=== PATIENT | female | born 1940 | race Caucasian/White ===

== ENCOUNTER → 2018-11-17 | Outpatient (CLI) | payer MEDICARE ==
--- NOTE | 2018-11-17 13:10 | Diagnostic Imaging Report ---
PROCEDURE: CT chest, abdomen, and pelvis without contrast. TECHNIQUE: Multiple contiguous axial images were obtained through the chest, abdomen, and pelvis without the use of intravenous contrast. Auto Exposure Controls were utilized during the CT exam to meet ALARA standards for radiation dose reduction. INDICATION: Breast carcinoma, followup. Patient does complain of back pain. COMPARISON: No prior studies are available for comparison. FINDINGS: CT chest: There is a large solid-appearing mass in the left breast measuring 4.2 cm in diameter. A lymph node in the left axilla measures 1.3 x 0.8 cm. The right axilla is unremarkable. No definite intramammary lymphadenopathy is seen. There are small lymph nodes in the mediastinum. Mediastinal and hilar evaluation is limited without intravenous contrast. There are coronary arterial calcifications present. There is no pericardial or pleural fluid detected. Moderate-sized hiatal hernia is noted. Biapical pleural-parenchymal scarring is seen. A band of linear density in the left upper lobe is noted which shows some mild nodularity peripherally. There is also a calcified granuloma in the left upper lobe. There is a small nodule in the posterolateral left lower lobe measuring 6 mm. There appears to be some patchy sclerosis involving T7, T8, and T9 vertebral bodies, suspicious for metastatic disease. IMPRESSION: 1. Large left breast mass. 2. Linear parenchymal density with some mild nodularity in the left upper lobe, indeterminate. There is a noncalcified nodule in the posterolateral left lower lobe. Metastatic lesion cannot be entirely excluded. There are also some patchy areas of sclerosis in the thoracic spine, suspicious for osseous metastatic disease. 3. Large hiatal hernia. CT abdomen and pelvis: No discrete liver mass is identified. The gallbladder is unremarkable. The pancreas and spleen are unremarkable. The right and left adrenal glands are unremarkable without evidence of a discrete mass. No renal calculi or hydronephrosis is seen. Aorta is calcified but nonaneurysmal. No central retroperitoneal or mesenteric lymphadenopathy is seen. Small and large bowel loops are normal in caliber. There is no ascites. The bladder and uterus appear unremarkable. No definite pelvic lymphadenopathy is seen. Evaluation of the bony structures demonstrates some healing fractures of the right inferior and superior pubic rami. There is a small amount of callus formation present but the fracture lines remain clearly visible. Markedly heterogeneous patchy sclerosis involving bilateral superior and inferior rami are noted. This is also seen involving the femoral heads bilaterally as well as the iliac bones and sacrum. There are heterogeneous mixed lytic and sclerotic changes of the lumbar spine as well. Features are suggestive of osseous metastatic disease. IMPRESSION: 1. Findings suggestive of osseous metastatic disease. There are healing fractures of the right superior and inferior pubic rami. No abdominal or pelvic lymphadenopathy or other regions of metastatic disease are identified. Dictated by: Dictated on workstation # [id number]
--- NOTE | 2018-11-17 17:57 | Diagnostic Imaging Report ---
INDICATION: Breast mass and back pain. TECHNIQUE: Patient was administered 25.1 mCi technetium 99m MDP intravenously and whole-body imaging was performed after 3 hour delay. COMPARISON: No prior bone scans are available for comparison. FINDINGS: There is uptake of activity by the axial and appendicular skeleton. There is uptake by the kidneys with excretion into the urinary bladder. There are numerous abnormal foci of tracer accumulation present. Abnormal uptake in the calvarium is seen. There is uptake involving numerous bilateral ribs as well as throughout the thoracic and lumbar spine. There is uptake within the bony pelvis and sacrum as well as bilateral femora. There also appears to be uptake in the humeri bilaterally. Findings are suggestive of widespread osseous metastatic disease. IMPRESSION: Findings consistent with diffuse osseous metastatic disease. Dictated by: Dictated on workstation # [id number]
--- NOTE | 2018-11-17 19:39 | Diagnostic Imaging Report ---
INDICATION: Left breast lump. No prior studies are available for comparison. 2-D and 3-D bilateral diagnostic mammography was performed with Computer-Aided Detection (CAD) system. FINDINGS: Scattered fibronodular densities are identified bilaterally. There is a large lobulated mass in the upper and slightly inner left breast measuring approximately 4 cm x 5 cm. This is concerning for neoplasm. No other masses are seen. No microcalcifications are identified. Right breast is unremarkable. IMPRESSION: Large lobulated left breast mass concerning for malignancy. Further evaluation with ultrasound is recommended and will be performed today. ACR BI-RADS Category 0: Incomplete. (Needs additional imaging evaluation). Result letter will be mailed to the patient. Note: At least 10% of breast cancer is not imaged by mammography. Dictated by: Dictated on workstation # [id number]
--- NOTE | 2018-11-17 19:47 | Diagnostic Imaging Report ---
INDICATION: Left breast mass. Correlation is made with diagnostic mammogram earlier the same day. FINDINGS: Sonographic interrogation of the mass in the upper and slightly inner left breast was performed. There is a large, ill-defined hypoechoic solid mass at the 10 o'clock location measuring 3.3 x 3.5 x 4.5 cm. This demonstrates internal vascularity. This corresponds to the mass noted mammographically. The left axilla was also evaluated and contains prominent lymph node measuring 2.5 x 1.3 cm. Second fatty lymph node is seen measuring 2.5 x 1.5 cm. IMPRESSION: Large solid mass at the 10 o'clock location of the left breast corresponding to the mammographic abnormality. Features are concerning for breast neoplasm. Tissue sampling is recommended. ACR BI-RADS Category 4: Suspicious abnormality. Dictated by: Dictated on workstation # [id number]
== END ==
LOC: CARD 11:57
PROVIDERS: ATTEND Internal Medicine Hematology & Oncology
DX: N63.22 Unspecified lump in the left breast, upper inner quadrant (principal); R91.8 Other nonspecific abnormal finding of lung field; K44.9 Diaphragmatic hernia without obstruction or gangrene
CPT/HCPCS: 71250; 74176; 76642; 77066; 78306

== ENCOUNTER → 2018-11-30 | Outpatient (CLI) | payer MEDICARE ==
[~2018-11-30] MED LIST: LIDOCAINE 1% INJ 20 ML 20 ML VIAL INJ ONE; LIDOCAINE 1% INJ 20 ML 20 ML VIAL ONE
--- NOTE | 2018-11-30 20:23 | Diagnostic Imaging Report ---
INDICATION: Postbiopsy clip placement. EXAMINATION: Two views of left breast were obtained. FINDINGS: A surgical clip is seen within the large mass in the upper medial left breast. IMPRESSION: Satisfactory clip placement, as described. Dictated by: Dictated on workstation # [id number]
--- NOTE | 2018-11-30 20:25 | Diagnostic Imaging Report ---
INDICATION: Breast mass. TECHNIQUE AND FINDINGS: After explaining the risks, benefits, and alternatives of the procedure to the patient written consent was obtained. A preliminary ultrasound was obtained for localization purposes. Patient's left breast was then prepped and draped utilizing maximal sterile barrier technique. Local anesthesia was obtained with 2% lidocaine. An 18-gauge Temno needle was advanced into the lesion under ultrasound guidance. 4 core biopsy specimens were obtained. The needle was removed. A surgical clip was then placed within the mass. Adequate hemostasis was obtained. Patient tolerated the procedure well and left the department in stable condition. IMPRESSION: Successful ultrasound-guided biopsy of left breast mass as described. Dictated by: Dictated on workstation # [id number]
== END ==
LOC: RAD 09:04
PROVIDERS: ATTEND Internal Medicine Hematology & Oncology
DX: N63.20 Unspecified lump in the left breast, unspecified quadrant (principal)
CPT/HCPCS: 19083

== ENCOUNTER 2019-01-09 18:26 | Observation (INO) | payer MEDICARE ==
[~2019-01-09] VITALS: Ht 165.1 cm; Wt 61.8 kg
[2019-01-09] MEDS ORDERED: LACTATED RINGERS 1,000 ML IV ONE (18:55)
[2019-01-09] MEDS ORDERED: ONDANSETRON 4 MG/2 ML (SDV) Z0FRAN IVP ONE (19:00)
[2019-01-09 19:01] LABS: BASOPHILS % (AUTO) 0 % (0-10); EOSINOPHILS % (AUTO) 0 % (0-10); HEMATOCRIT 36 % (35-52); HEMOGLOBIN 12.1 G/DL (11.5-16.0); LYMPHOCYTES # (AUTO) 0.2 X 10^3 (1.0-4.0); LYMPHOCYTES % (AUTO) 6 % (12-44); MEAN CORPUSCULAR HEMOGLOBIN 29 PG (25-34); MEAN CORPUSCULAR HGB CONC 34 G/DL (32-36); MEAN CORPUSCULAR VOLUME 85 FL (80-99); MEAN PLATELET VOLUME 10.4 FL (7.4-10.4); MONOCYTES # (AUTO) 0.1 X 10^3 (0.0-1.0); MONOCYTES % (AUTO) 4 % (0-12); NEUTROPHILS # (AUTO) 2.3 X 10^3 (1.8-7.8); NEUTROPHILS % (AUTO) 90 % (42-75); PLATELET COUNT 206 10^3/uL (130-400); RED CELL DISTRIBUTION WIDTH 15.7 % (10.0-14.5); WHITE BLOOD COUNT 2.6 10^3/uL (4.3-11.0)
[2019-01-09 19:13] LABS: PROTHROMBIN TIME PATIENT 13.6 SEC (12.2-14.7)
[2019-01-09 19:22] LABS: ALBUMIN 3.9 GM/DL (3.2-4.5); BILIRUBIN,TOTAL 0.4 MG/DL (0.1-1.0); CALCIUM 10.1 MG/DL (8.5-10.1); CREATININE SERUM 1.04 MG/DL (0.60-1.30); MAGNESIUM 2.3 MG/DL (1.8-2.4); TOTAL PROTEIN 7.5 GM/DL (6.4-8.2)
--- NOTE | 2019-01-09 19:22 | ED Abdominal Pain ---
General Chief Complaint: Abdominal/GI Problems Stated Complaint: NAUSEA/ABD PAIN Nursing Triage Note: PATIENT WITH BREAST CANCER HERE FOR CONCERNS ABOUT CONSTIPATION. SHE REPORTS THAT SHE TAKES OXYCODONE SEVERAL TIMES A DAY AND USUALLY IS ABLE TO MAINTAIN ADEQUATE STOOLS WITH STOOL SOFTENERS AND MIRALAX. HOWEVER, SHE HAS NOT HAD A BM SINCE TUESDAY AND REPORTS LOW ABDOMINAL PAIN ANDNAUSEA. Sepsis Screen: No Definite Risk Source of Information: Patient, Family (SON) History of Present Illness Date Seen by Provider: January 09, 2019 Time Seen by Provider: 18:50 Initial Comments PT ARRIVES VIA POV FROM HOME, WITH FAMILY C/O "SEVERE CONSTIPATION" C/O GENERALIZED ABDOMINAL PAIN, AND NO BM SINCE TUESDAY--BM WAS A FEW HARD SAMANTHA RATES PAIN 7-03/31 C/O NAUSEA AND VOMITED UP WATER X 1 THIS AM, HAD SMALL AMOUNT OF CRANBERRY JUICE AND 2 BITES OF TOAST EARLY THIS AM, AND KEPT THOSE DOWN, THEN LATER VOMITED UP THE WATER. 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 LAST DOSE WAS AT 1700 TODAY HAS HAD ISSUES WITH CONSTIPATION SINCE STARTING ON THE ABOVE MEDICATIONS, BUT HAS HAD GOOD RESULTS WITH MIRALAX, OTC STOOL SOFTENER AND OCCASIONAL EX-LAX, BUT IS NOT HELPING FOR THE LAST 4 DAYS. PT HAS NEVER HAD ANY MEDICAL PROBLEMS OR ANY SURGERIES PRIOR TO THE ABOVE ( HAD BREAST BIOPSY ONLY ) HAS NEVER BEEN IN HOSPITAL BEFORE PCP: DR BEATTY ONCOLOGIST: DR PICKETT Allergies and Home Medications Allergies Coded Allergies: No Known Drug Allergies (Unverified , 11/30/18) Patient Home Medication List Home Medication List Reviewed: Yes Review of Systems Review of Systems Constitutional: no symptoms reported; No chills, No diaphoresis, No fever EENTM: No Symptoms Reported Respiratory: No Symptoms Reported; Denies Cough, Denies Shortness of Air Cardiovascular: No Symptoms Reported; Denies Chest Pain, Denies Edema, Denies Lightheadedness Gastrointestinal: See HPI, Abdominal Pain, Constipated, Nausea, Poor Appetite, Poor Fluid Intake, Vomiting Genitourinary: No Symptoms Reported Musculoskeletal: see HPI, back pain Skin: no symptoms reported Psychiatric/Neurological: No Symptoms Reported Endocrine: No Symptoms Reported Hematologic/Lymphatic: No Symptoms Reported Past Bawzaht-Yobvas-Dizpvx Hx Patient Social History Alcohol Use: Denies Use Recreational Drug Use: No Smoking Status: Never a Smoker 2nd Hand Smoke Exposure: No Recent Foreign Travel: No Contact w/Someone Who Travel: No Recent Infectious Disease Expo: No Recent Hopitalizations: No Seasonal Allergies Seasonal Allergies: No Past Medical History Surgeries: Yes (LEFT BREAST BIOPSY 10/2018) Breast Respiratory: No Cardiac: No Neurological: No Genitourinary: No Gastrointestinal: Yes (CONSTIPATION SINCE STARTING ON MEDICATIONS FOR PAIN AND BREAST CANCER 11/08/18) Musculoskeletal: Yes (BACK PAIN--FROM BONE METS) Endocrine: No HEENT: No Cancer: Yes Breast Did You Recieve Any Treatments: Yes (IN IBERANCE ORAL CHEMO; 10 RADIATION ) What Type of Treatment Did You: Chemotherapy, Radiation METS TO BONE Psychosocial: No Integumentary: No Blood Disorders: No Physical Exam Vital Signs Vital Signs - First Documented 01/09/19 18:35 Temp 98.1 Pulse 71 Resp 18 B/P (MAP) 173/67 (102) Pulse Ox 99 Capillary Refill : Less Than 3 Seconds Height/Weight/BMI Height: 5'5.00" Weight: 139lbs. 0oz. 63.208878ez; BMI Method:Stated General Appearance: WD/WN, no apparent distress HEENT: PERRL/EOMI, pale conjunctivae (R), pale conjunctivae (L) Neck: normal inspection Respiratory: normal breath sounds, no respiratory distress, no accessory muscle use Cardiovascular: regular rate, rhythm, no edema, no JVD, no murmur Gastrointestinal: soft, no organomegaly, no pulsatile mass, abnormal bowel sounds (DECREASED ); No distended, No guarding, No rebound; tenderness (DIFFUSE TENDERNESS); No hernia, No mass Extremities: normal inspection, no pedal edema, normal capillary refill Back: no CVA tenderness 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, no motor/sensory deficits, alert, normal mood/affect, oriented x 3 Skin: warm/dry, pallor; No rash Focused Exam Lactate Level 01/09/19 19:35: Lactic Acid Level 2.27*H Lactic Acid Level Laboratory Tests Test 01/09/19 19:35 Lactic Acid Level 2.27 MMOL/L (0.50-2.00) *H Progress/Results/Core Measures Results/Orders Lab Results Laboratory Tests Test 01/09/19 18:50 01/09/19 19:23 01/09/19 19:35 Range/Units White Blood Count 2.6 L 4.3-11.0 10^3/uL Red Blood Count 4.25 L 4.35-5.85 10^6/uL Hemoglobin 12.1 11.5-16.0 G/DL Hematocrit 36 35-52 % Mean Corpuscular Volume 85 80-99 FL Mean Corpuscular Hemoglobin 29 25-34 PG Mean Corpuscular Hemoglobin Concent 34 32-36 G/DL Red Cell Distribution Width 15.7 H 10.0-14.5 % Platelet Count 206 130-400 10^3/uL Mean Platelet Volume 10.4 7.4-10.4 FL Neutrophils (%) (Auto) 90 H 42-75 % Lymphocytes (%) (Auto) 6 L 12-44 % Monocytes (%) (Auto) 4 0-12 % Eosinophils (%) (Auto) 0 0-10 % Basophils (%) (Auto) 0 0-10 % Neutrophils # (Auto) 2.3 1.8-7.8 X 10^3 Lymphocytes # (Auto) 0.2 L 1.0-4.0 X 10^3 Monocytes # (Auto) 0.1 0.0-1.0 X 10^3 Eosinophils # (Auto) 0.0 0.0-0.3 10^3/uL Basophils # (Auto) 0.0 0.0-0.1 10^3/uL Neutrophils % (Manual) 76 % Lymphocytes % (Manual) 4 % Monocytes % (Manual) 2 % Eosinophils % (Manual) 1 % Band Neutrophils 17 % Blood Morphology Comment NORMAL Prothrombin Time 13.6 12.2-14.7 SEC INR Comment 1.0 0.8-1.4 Activated Partial Thromboplast Time 30 24-35 SEC Sodium Level 135 135-145 MMOL/L Potassium Level 4.0 3.6-5.0 MMOL/L Chloride Level 102 98-107 MMOL/L Carbon Dioxide Level 21 21-32 MMOL/L Anion Gap 12 5-14 MMOL/L Blood Urea Nitrogen 17 7-18 MG/DL Creatinine 1.04 0.60-1.30 MG/DL Estimat Glomerular Filtration Rate 51 BUN/Creatinine Ratio 16 Glucose Level 133 H 70-105 MG/DL Calcium Level 10.1 8.5-10.1 MG/DL Corrected Calcium 10.2 H 8.5-10.1 MG/DL Magnesium Level 2.3 1.8-2.4 MG/DL Total Bilirubin 0.4 0.1-1.0 MG/DL Aspartate Amino Transf (AST/SGOT) 32 5-34 U/L Alanine Aminotransferase (ALT/SGPT) 25 0-55 U/L Alkaline Phosphatase 123 40-136 U/L Total Protein 7.5 6.4-8.2 GM/DL Albumin 3.9 3.2-4.5 GM/DL Amylase Level 106 25-125 U/L Lipase 13 8-78 U/L Urine Color BOBBY H Urine Clarity CLEAR Urine pH 5 5-9 Urine Specific [place] 1.025 H 1.016-1.022 Urine Protein 2+ H NEGATIVE Urine Glucose (UA) NEGATIVE NEGATIVE Urine Ketones 2+ H NEGATIVE Urine Nitrite POSITIVE H NEGATIVE Urine Bilirubin 1+ H NEGATIVE Urine Urobilinogen 4 H NORMAL MG/DL Urine Leukocyte Esterase 3+ H NEGATIVE Urine RBC (Auto) 1+ H NEGATIVE Urine RBC NONE /HPF Urine WBC 10-25 H /HPF Urine Squamous Epithelial Cells 2-5 /HPF Urine Crystals PRESENT H /LPF Urine Uric Acid Crystals FEW H /LPF Urine Bacteria MODERATE H /HPF Urine Casts NONE /LPF Urine Mucus LARGE H /LPF Urine Culture Indicated YES Lactic Acid Level 2.27 *H 0.50-2.00 MMOL/L My Orders Orders - JUSTIN PAIZ DO Ed Iv/Invasive Line Start (01/09/19 18:55) Ekg Tracing (01/09/19 18:55) Monitor-Rhythm Ecg Trace Only (01/09/19 18:55) Amylase (01/09/19 18:55) Cbc With Automated Diff (01/09/19 18:55) Comprehensive Metabolic Panel (01/09/19 18:55) Lipase (01/09/19 18:55) Magnesium (01/09/19 18:55) Protime With Inr (01/09/19 18:55) Partial Thromboplastin Time (01/09/19 18:55) Ua Culture If Indicated (01/09/19 18:55) Ed Iv/Invasive Line Start (01/09/19 18:55) Lactated Ringers (Lr 1000 Ml Iv Solution (01/09/19 18:55) Ondansetron Injection (Zofran Injectio (01/09/19 19:00) Manual Differential (01/09/19 18:50) Acute Abd Series (01/09/19 19:15) Lactic Acid Analyzer (01/09/19 19:15) Blood Culture (01/09/19 19:15) Ct Abdomen/Pelvis Wo (01/09/19 19:15) Fentanyl Injection (Sublimaze Injection (01/09/19 19:30) Ceftriaxone For Iv Use (Rocephin For I (01/09/19 19:30) Urine Culture (01/09/19 19:23) Ceftriaxone For Iv Use (Rocephin For I (01/09/19 20:15) Medications Given in ED Current Medications Medications Dose Ordered Sig/Pablo Route Start Time Stop Time Status Last Admin Dose Admin Ceftriaxone Sodium 1000 mg/ Sterile Water 10 ml @ 200 mls/hr ONCE ONCE IV 01/09/19 20:15 01/09/19 20:17 DC 01/09/19 20:43 200 MLS/HR Fentanyl Citrate 50 mcg ONCE ONCE IVP 01/09/19 19:30 01/09/19 19:31 DC 01/09/19 19:48 50 MCG Lactated Ringer's 1,000 ml @ 0 mls/hr Q0M ONCE IV 01/09/19 18:55 01/09/19 18:58 DC 01/09/19 19:01 0 MLS/HR Ondansetron HCl 8 mg ONCE ONCE IVP 01/09/19 19:00 01/09/19 19:01 DC 01/09/19 19:01 8 MG Vital Signs/I&O 01/09/19 18:35 Temp 98.1 Pulse 71 Resp 18 B/P (MAP) 173/67 (102) Pulse Ox 99 Blood Pressure Mean: 102 Progress Progress Note : Progress Note NAUSEA AND PAIN IMPROVED WITH MEDICATIONS NO DETERIORATION IN PT'S CONDITION DURING ER STAY Initial ECG Impression Date: January 09, 2019 Initial ECG Impression Time: 19:16 Initial ECG Rate: 63 Initial ECG Rhythm: Normal Sinus Initial ECG Impression: Nonspecific Changes Initial ECG Comparisson: No Previous ECG Available Diagnostic Imaging Comments ACUTE ABDOMEN XRAYS --NON-SPECIFIC BOWEL GAS PATTERN WITH AIR FLUID LEVELS SEEN WHICH MAY BE WITHIN THE LARGE BOWEL AND ALSO POSSIBLY IN SMALL BOWEL. NO DEFINITE DILATED INTESTINES CT SCAN OF ABDOMEN/PELVIS--LARGER AMOUNTS OF STOOL IN RIGHT COLON AND PROXIMAL TRANSVERSE COLON, SMALL TO MODERATE AMOUNT OF STOOL IN TRANSVERSE TO PROXIMAL SIGMOID COLON, WITH DECOMPRESSION AND NO SIGNIFICANT STOOL IN MOST OF SIGMOID COLON. AIR FLUID LEVELS IN TRANSVERSE AND ASCENDING COLON. SHORT SEGMENT OF BOWEL WALL THICKENING AND MILD ADJACENT FAT STRANDING IN PROXIMAL SIGMOID COLON, POSSIBLE MILD DIVERTICULITIS OR COLITIS. CALCIFICATION OR HIGH DENSITY IN POSTERIOR WALL/ASPECT OF BLADDER-SLIGHTLY INCREASED FROM PREVIOUS. SMALL TO MODERATE SIZED HIATAL HERNIA. NO EVIDENCE OF BOWEL OBSTRUCTION. SLIGHT PROGRESSION OF BONY BRIDGING OF SUPERIOR AND INFERIOR RIGHT PUBIC BONE FRACTURES, WHICH APPEAR PATHOLOGIC, DIFFUSE OSSEOUS METASTATIC DISEASE AGAIN PRESENT. ALL PER RADIOLOGIST REPORTS @ 2111 Reviewed: Reviewed by Me Departure Communication (Admissions) 2114--SPOKE WITH DR. BELL, SURGEON DRILLER HELPER. WILL KEEP NPO AND HE WILL SEE IN AM 2117--SPOKE WITH DR. CHAN, HOSPITALIST, ACCEPTS PT FOR ADMIT Impression Primary Impression: Sepsis Additional Impressions: NEUTROPENIA ON ORAL CHEMOTHERAPY UTI (urinary tract infection) Abdominal pain CONSTIPATION WITH COLITIS/POSSIBLE DIVERTICULITIS Breast cancer metastasized to bone Disposition: ADMITTED INPATIENT Condition: Improved Admissions Decision to Admit Reason: Admit from ER (General) Decision to Admit/Date: January 09, 2019 Time/Decision to Admit Time: 21:15 Departure-Patient Inst. Referrals: EDWIN BEATTY MD (PCP/Family) Primary Care Physician JUSTIN PAIZ DO January 09, 2019 19:22
[2019-01-09 19:24] LABS: BAND NEUTROPHILS 17 %; EOSINOPHILS % (MANUAL) 1 %; LYMPHOCYTES % (MANUAL) 4 %; MONOCYTES % (MANUAL) 2 %; NEUTROPHILS % (MANUAL) 76 %; RBC MORPH NORMAL
[2019-01-09] MEDS ORDERED: fentaNYL INJECTION 100 MCG/2 ML AMP IVP ONE (19:30)
[2019-01-09] MEDS ORDERED: cefTRIAXone FOR IV USE 1,000 MG in WATER (STERILE) FOR INJECTION 10 ML IV ONE ×2 (19:30→20:15)
[2019-01-09 19:35] LABS: BILIRUBIN,URINE 1+ (NEGATIVE); CLARITY,URINE CLEAR; COLOR,URINE AMBER; GLUCOSE, URINE (UA) NEGATIVE (NEGATIVE); KETONES,URINE 2+ (NEGATIVE); LEUKOCYTE ESTERASE ,URINE 3+ (NEGATIVE); NITRITE,URINE POSITIVE (NEGATIVE); PH,URINE 5 (5-9); PROTEIN,URINE 2+ (NEGATIVE); UROBILINOGEN,URINE 4 MG/DL (NORMAL)
[2019-01-09 19:43] LABS: BACTERIA,URINE MODERATE /HPF
[2019-01-09 19:48] LABS: URIC ACID CRYSTALS,URINE FEW /LPF
--- NOTE | 2019-01-09 20:51 | Diagnostic Imaging Report ---
Clinical indication: Patient with breast cancer, here for concerns for bowel constipation. Patient reports taking oxycodone several times a day and usually is able to maintain adequate stool or stool softener and MiraLax. Patient has not had a BM since Tuesday. Patient has low abdominal pain and nausea. EXAMS: X-ray of the chest PA view and x-ray of the abdomen supine and upright views. COMPARISONS: CT scan of the chest, abdomen, and pelvis dated 11/17/2018. FINDINGS: LUNGS/ PLEURA: Lungs are clear. There is no pneumothorax. There is no pleural effusion. MEDIASTINUM: Unremarkable. PULMONARY VASCULATURE: Unremarkable. HEART: Unremarkable. BONES/ EXTRATHORACIC SOFT TISSUE: There are hypertrophic spurs involving the thoracic spine. ABDOMEN AND PELVIS: There are multiple air-fluid levels seen across the upper abdominal region. These may be within the transverse colon or within small bowel. There is no dilated loops of small bowel seen. There is a paucity of bowel gas seen overlying the abdomen on supine view. There is left curvature lumbar spine with hypertrophic spurs. Again seen sclerotic areas involving the bilateral pubic bones with bony irregularity seen. This is better seen on comparison CT scan of the chest, abdomen, and pelvis dated 11/17/2018. IMPRESSION: 1: Nonspecific bowel gas pattern with air-fluid levels seen which may be within the large bowel and also possibly within small bowel. There are no definite dilated intestines seen. CT scan of the abdomen and pelvis would better evaluate for possible obstruction or ileus. 2: Chest shows no radiographic evidence of acute cardiopulmonary process. Dictated by: Dictated on workstation # [id number]
--- NOTE | 2019-01-09 21:03 | Diagnostic Imaging Report ---
Clinical indication: Patient with breast cancer, here for concerns for constipation. Exam: CT scan of the chest, abdomen, and pelvis performed without IV contrast. Coronal and sagittal reformatted images were created. Comparison: CT scan of the chest, abdomen, and pelvis dated 11/17/2018. Findings: There is mild bibasilar atelectasis. There is some progression of bony bridging of the pathologic appearing fracture involving the superior and inferior pubic rami on the right. There is also sclerotic areas involving the left ischium. There is bone loss, heterogeneity and sclerosis seen throughout the visualized axial skeleton which was also note on the prior study. This may be related to osseous metastatic disease. The liver, spleen, pancreas, gallbladder, and adrenal glands are unremarkable. Both kidneys were unremarkable with no stones, mass or hydronephrosis. There is again seen calcification or high density involving the posterior wall or within the posterior aspect of the bladder. This was noted on the prior study as well, but has slightly increased. Bladder is otherwise unremarkable. There is no measurable mass seen. The uterus and adnexal regions show no significant abnormalities. There is interval development of large amounts of stool within the right colon seen from the cecum to the proximal transverse colon. There is small to moderate amount of stool within the transverse colon extending all the way to the rectum. There is decompression and no significant stool within most of the sigmoid colon. There is a short segment of bowel wall thickening and mild adjacent fat stranding involving the proximal sigmoid colon. Mild diverticulitis or colitis may be considered. There are a few diverticula seen involving the descending colon and sigmoid colon. Again seen is a small to moderate-sized hiatal hernia. There is no evidence of intestinal obstruction. There are air-fluid levels within the transverse colon. There is no intra-abdominal free air. There is minimal free fluid in the pelvis. There is no significant intra-abdominal or intrapelvic lymphadenopathy. Extra abdominal and extrapelvic soft tissue structures are unremarkable. Impression: 1: There are large amounts of stool seen within the right colon and proximal transverse colon. There is small to moderate amount of stool within the transverse colon to the proximal sigmoid colon and in the rectal region. There are also air-fluid levels within the transverse colon and ascending colon. 2: There is a short segment of bowel wall thickening and mild adjacent fat stranding involving the proximal sigmoid colon. Diverticulitis or colitis may be considered. There is no intra-abdominal free air or evidence of intra-abdominal abscess. 3: There is slight increase high density debris or posterior wall calcification involving the prostate gland. 4: Slight progression of bony bridging of the superior and inferior right pubic bone fractures which appear pathologic. There is diffuse osseous metastatic disease again seen. Dictated by: Dictated on workstation # [id number]
[2019-01-09 22:35] VITALS: BP 193/82
--- NOTE | 2019-01-09 22:35 | NUR ---
OMAR HANNA admitted to room 407-1, with an admitting diagnosis of ABDOMINAL PAIN, SEPSIS, UTI, CONSTIPATION,METASTATIC BREAST CANCER, COLITIS, CONSTIPATION, NEUTROPENIA, on 01/09/19 from ED via WHEELCHAIR, accompanied by STAFF AND FAMILY.OMAR HANNA introduced to surroundings, call light, bed controls, phone, TV, temperature control, lights, meal times, smoking policy, visitor policy, side rail policy, bathrooms and showers.
[2019-01-09] MEDS ORDERED: ACETAMINOPHEN 500 MG TAB (TYLENOL) PO PRN (23:00)
[2019-01-09] MEDS: D5 1/2 NS W/KCL 20 MEQ/L 1,000 ML IV SCH (23:14)
[2019-01-09] MEDS: fentaNYL INJECTION 100 MCG/2 ML AMP IV PRN (23:17)
[2019-01-09] MEDS: ONDANSETRON 4 MG/2 ML (SDV) Z0FRAN IV PRN (23:18)
[2019-01-10] VITALS: BP 159/70
[2019-01-10 04:00] VITALS: BP 125/79
--- NOTE | 2019-01-10 04:43 | NUR ---
THIS NURSE RECEIVED A PHONE CALL FROM MECHANICAL DESIGNER TECH UPDATING THIS NURSE THAT PATIENT HEART RHYTHM HAD GONE INTO AFIB WITH A RATE FLUCTUATING FROM 90S-140S. THIS NURSE WENT TO PATIENT ROOM, PATIENT STATED THAT SHE "FELT FINE" AND WHEN ASKED PATIENT SAID SHE HAS NO HISTORY OF AFIB. VITALS OBTAINED BP-125/79 R-16 02-96% RA. PATIENT HEART RATE CONTINUED TO ELEVATE AND DECREASE WHILE PULSE OXIMETER IN PLACE. EKG WAS PERFORMED AND WHILE UNDERGOING EKG PATIENT DID CONVERT BACK TO SINUS RHYTHM WITH A RATE IN THE 70S. MECHANICAL DESIGNER TECH REPORTED PATIENT WAS STILL HAVING PVCS. DR CHAN NOTIFIED OF HEART RHYTHM CHANGES. NO NEW ORDERS.
[2019-01-10 05:28] LABS: BASOPHILS % (AUTO) 0 % (0-10); EOSINOPHILS % (AUTO) 0 % (0-10); HEMATOCRIT 32 % (35-52); HEMOGLOBIN 10.6 G/DL (11.5-16.0); LYMPHOCYTES # (AUTO) 0.2 X 10^3 (1.0-4.0); LYMPHOCYTES % (AUTO) 13 % (12-44); MEAN CORPUSCULAR HEMOGLOBIN 28 PG (25-34); MEAN CORPUSCULAR HGB CONC 33 G/DL (32-36); MEAN CORPUSCULAR VOLUME 85 FL (80-99); MEAN PLATELET VOLUME 10.4 FL (7.4-10.4); MONOCYTES # (AUTO) 0.1 X 10^3 (0.0-1.0); MONOCYTES % (AUTO) 3 % (0-12); NEUTROPHILS # (AUTO) 1.5 X 10^3 (1.8-7.8); NEUTROPHILS % (AUTO) 84 % (42-75); PLATELET COUNT 189 10^3/uL (130-400); RED CELL DISTRIBUTION WIDTH 15.6 % (10.0-14.5); WHITE BLOOD COUNT 1.8 10^3/uL (4.3-11.0)
[2019-01-10 05:46] LABS: BUN/CREATININE RATIO 19; CARBON DIOXIDE 21 MMOL/L (21-32); CHLORIDE 106 MMOL/L (98-107); CREATININE SERUM 0.84 MG/DL (0.60-1.30); POTASSIUM 4.8 MMOL/L (3.6-5.0); SODIUM 139 MMOL/L (135-145)
[2019-01-10 05:47] LABS: ALANINE AMINOTRANSFERASE 20 U/L (0-55); ALBUMIN 3.4 GM/DL (3.2-4.5); ALKALINE PHOSPHATASE 111 U/L (40-136); BILIRUBIN,TOTAL 0.4 MG/DL (0.1-1.0); CALCIUM 9.4 MG/DL (8.5-10.1); GFR ESTIMATED > 60; GLUCOSE 160 MG/DL (70-105); TOTAL PROTEIN 6.4 GM/DL (6.4-8.2)
[2019-01-10] MEDS: D5 1/2 NS W/KCL 20 MEQ/L 1,000 ML IV SCH ×2 (07:20→13:01)
[2019-01-10 08:11] VITALS: BP 155/66
[2019-01-10] MEDS ORDERED: LETR2.5T5 PO (09:47)
[2019-01-10] MEDS ORDERED: OXYC10TA7 PO (09:47)
[2019-01-10] MEDS ORDERED: ONDA8TAB6 PO (09:47)
[2019-01-10] MEDS ORDERED: PALB125C PO (09:56)
--- NOTE | 2019-01-10 09:57 | NUR ---
SPOKE WITH THE PATIENTS SON TRESA ABOUT MEDICATIONS. HE HAD A LIST ON HIS PHONE AND I VERIFIED WHAT [facility] HAS FILLED RECENTLY. [facility] FILLED: 01-06-19 ZOFRAN 8MG Q8H PRN 01-06-19 OXYCODONE 10MG Q4-6H PRN 12-07-18 LETROZOLE 2.5MG DAILY #30 ADDITIONALLY SHE TAKES IBRANCE 125MG DAILY FOR 3 WEEKS THEN OFF ONE WEEK, THIS IS MAILED TO THEM THROUGH THE [facility].
--- NOTE | 2019-01-10 10:31 | History & Physical-Hospitalist ---
History of Present Illness HPI/Chief Complaint The patient is a 78-year-old white female presented to the emergency room last night with complaints of abdominal pain. 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 She has bony metastases and has been taking oral narcotics for pain relief. She normally has been able to obtain bowel habits by the use of stool softeners and MiraLAX. At this time she has not had a bowel movement since Tuesday and reports distention, nausea and vomited once. X-rays show considerable stool throughout the colon. Source: patient, family Exam Limitations: no limitations Date Seen 01/10/19 Time Seen by a Provider: 10:26 Attending Physician Jean Marie Chan MD PCP Bridgette Blum MD Referring Physician Date of Admission January 09, 2019 at 21:18 Home Medications & Allergies Home Medications Reviewed patient Home Medication Reconciliation performed by pharmacy medication reconciliations hydroelectric plant technician and/or nursing. Patients Allergies have been reviewed. Allergies Allergies Coded Allergies No Known Drug Allergies (Unverified11/30/18) Past Lheqpen-Xgxnpu-Pucmrb Hx Past Med/Social Hx: Reviewed Nursing Past Med/Soc Hx Patient Social History Marrital Status: Alcohol Use: Denies Use Recreational Drug Use: No Smoking Status: Never a Smoker 2nd Hand Smoke Exposure: No Recent Foreign Travel: No Contact w/other who traveled: No Recent Hopitalizations: No Recent Infectious Disease Expo: No Seasonal Allergies Seasonal Allergies: No Past Medical History Surgeries: Breast Cancer: Breast Did You Recieve Any Treatments: Yes (IN IBERANCE ORAL CHEMO; 10 RADIATION ) What Type of Treatment Did You: Chemotherapy, Radiation Cancer: METS TO BONE History of Blood Disorders: No Family History Cardiovascular disease 19 FATHER Completed stroke 19 MOTHER Review of Systems Constitutional: see HPI EENTM: no symptoms reported Respiratory: no symptoms reported Cardiovascular: no symptoms reported Gastrointestinal: abdominal pain, constipation, loss of appetite, nausea Genitourinary: other Musculoskeletal: no symptoms reported Skin: no symptoms reported Psychiatric/Neurological: No Symptoms Reported Physical Exam Physical Exam Vital Signs Vital Signs - First Documented 01/09/19 01/10/19 18:35 08:11 Temp 98.1 Pulse 71 Resp 18 B/P (MAP) 173/67 (102) Pulse Ox 99 O2 Flow Rate 0.00 Capillary Refill : Less Than 3 Seconds Height, Weight, BMI Height: 5'5.00" Weight: 136lbs. 4.0oz. 61.537169gv; 22.7 BMI Method:Stated General Appearance: Mild Distress Eyes: Bilateral Eye Normal Inspection HEENT: Normal ENT Inspection Neck: Full Range of Motion, Normal Inspection, Non Tender Respiratory: Chest Non Tender, Lungs Clear, Normal Breath Sounds, No Accessory Muscle Use, No Respiratory Distress Cardiovascular: Regular Rate, Rhythm Gastrointestinal: Other (. The patient is mildly tender throughout. Bowel sounds are hypoactive. She is not distended.) Extremity: Normal Capillary Refill, Normal Inspection Neurologic/Psychiatric: Alert, Oriented x3, No Motor/Sensory Deficits, Normal Mood/Affect, side hemmer II-XII Norm as Tested Results Results/Procedures Labs Laboratory Tests 01/09/19 18:50 01/10/19 05:20 Patient resulted labs reviewed. Assessment/Plan Admission Diagnosis 1.obstipation. 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 Admission Status: Observation Clinical Quality Measures DVT/VTE Risk/Contraindication: Risk Factor Score Per Nursin RFS Level Per Nursing on Admit: 4+=Very High JEAN MARIE CHAN MD January 10, 2019 10:31
[2019-01-10] MEDS ORDERED: NON-FORMULARY MEDICATION 1 EA EA (Oxycodone HCl 10 MG) PO PRN (11:00)
[2019-01-10] MEDS ORDERED: PALBOCICLIB 125 MG PO SCH (11:00)
[2019-01-10 12:00] VITALS: BP 165/71
[2019-01-10] MEDS: ONDANSETRON 4 MG/2 ML (SDV) Z0FRAN IV PRN (12:48)
[2019-01-10] MEDS: fentaNYL INJECTION 100 MCG/2 ML AMP IV PRN (12:49)
--- NOTE | 2019-01-10 14:32 | Consultation (Surgery) ---
History of Present Illness History of Present Illness Patient Consulted On(marjorie/time) 01/10/19 14:22 Time Seen by Provider: 13:58 History of Present Illness Surgery asked to consult regarding Abdominal pain, Constipation and questionable Sigmoid Diverticulitis. HPI per IM: The patient is a 78-year-old white female presented to the emergency room last night with complaints of abdominal pain. 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 She has bony metastases and has been taking oral narcotics for pain relief. She normally has been able to obtain bowel habits by the use of stool softeners and MiraLAX. At this time she has not had a bowel movement since Tuesday and reports distention, nausea and vomited once. X-rays show considerable stool throughout the colon. When I spoke to pt this afternoon she stated she was "much" better after having numerous BM's around 4 am. She states she has never had a colonoscopy and doesn't think she has ever been told she had diverticula or had diverticulitis. She has basically no pain right now, is eating clear liquid diet and having some flatus. Allergies and Home Medications Allergies Coded Allergies: No Known Drug Allergies (Unverified , 11/30/18) Home Medications Letrozole 2.5 Mg Tablet, 2.5 MG PO DAILY, (Reported) Ondansetron HCl 8 Mg Tablet, 8 MG PO Q8H PRN for NAUSEA/VOMITING-1ST LINE, (Reported) Oxycodone HCl 10 Mg Tablet, 10 MG PO Q4H PRN for PAIN-SEVERE, (Reported) Palbociclib 125 Mg Capsule, 125 MG PO UD, (Reported) TAKES 1 CAPSULES WITH NOON MEAL DAILY FOR 3 WEEKS THEN OFF 1 WEEK THEN REPEAT Patient Home Medication List Home Medication List Reviewed: Yes Past Wwhxsqg-Bdosfx-Brxiyf Hx Patient Social History Alcohol Use: Denies Use Recreational Drug Use: No Smoking Status: Never a Smoker 2nd Hand Smoke Exposure: No Recent Foreign Travel: No Contact w/Someone Who Travel: No Recent Infectious Disease Expo: No Recent Hopitalizations: No Seasonal Allergies Seasonal Allergies: No Surgeries History of Surgeries: Yes (LEFT BREAST BIOPSY 10/2018) Surgeries: Breast Respiratory History of Respiratory Disorde: No Cardiovascular History of Cardiac Disorders: No Neurological History of Neurological Disord: No Genitourinary History of Genitourinary Disor: No Gastrointestinal History of Gastrointestinal Di: Yes (CONSTIPATION SINCE STARTING ON MEDICATIONS FOR PAIN AND BREAST CANCER 11/08/18) Musculoskeletal History of Musculoskeletal Dis: Yes (BACK PAIN--FROM BONE METS) Endocrine History of Endocrine Disorders: No HEENT History of HEENT Disorders: No Cancer History of Cancer: Yes Cancer: Breast Psychosocial History of Psychiatric Problem: No Integumentary History of Skin or Integumenta: No Blood Transfusions History of Blood Disorders: No Family Medical History Significant Family History: Heart Disease, Stroke Family Medial History: Cardiovascular disease 19 FATHER Completed stroke 19 MOTHER Review of Systems-General Constitutional: No chills, No diaphoresis; malaise, weakness EENTM: No blurred vision, No double vision, No mouth swelling, No epistaxis, No throat swelling Respiratory: No cough, No dyspnea on exertion, No hemoptysis Cardiovascular: No chest pain, No edema, No palpitations Gastrointestinal: abdominal pain, constipation; No jaundice, No melena; nausea; No vomiting Genitourinary: No dysuria, No frequency, No hematuria Musculoskeletal: joint pain, joint swelling, muscle stiffness Skin: No change in color, No change in hair/nails, No lesions Psychiatric/Neurological: Denies Anxiety, Denies Depressed, Denies Seizure, Denies Tremors Other pt denies any abnormal bleeding or bruising Physical Exam-General Problems Physical Exam Vital Signs Vital Signs - First Documented 01/09/19 01/10/19 18:35 08:11 Temp 98.1 Pulse 71 Resp 18 B/P (MAP) 173/67 (102) Pulse Ox 99 O2 Flow Rate 0.00 Capillary Refill : Less Than 3 Seconds General Appearance: WD/WN, no apparent distress Eyes: Bilateral Eye PERRL, Bilateral Eye EOMI HEENT: pharynx normal; No scleral icterus (R), No scleral icterus (L); other (moist mucous membranes) Neck: supple, normal inspection Respiratory: chest non-tender, lungs clear, normal breath sounds, no respiratory distress, no accessory muscle use Cardiovascular: regular rate, rhythm, no murmur Gastrointestinal: normal bowel sounds, non tender, soft, no organomegaly, no pulsatile mass Back: no CVA tenderness, no vertebral tenderness Extremities: normal range of motion, non-tender, normal inspection, no pedal edema, no calf tenderness, normal capillary refill Neurologic/Psychiatric: aerologist II-XII nml as tested, no motor/sensory deficits, alert, normal mood/affect, oriented x 3 Skin: normal color, warm/dry Lymphatic: no adenopathy (neck or groin) Data Review Labs Laboratory Tests 01/09/19 18:50: White Blood Count 2.6L, Red Blood Count 4.25L, Hemoglobin 12.1, Hematocrit 36, Mean Corpuscular Volume 85, Mean Corpuscular Hemoglobin 29, Mean Corpuscular Hem oglobin Concent 34, Red Cell Distribution Width 15.7H, Platelet Count 206, Mean Platelet Volume 10.4, Neutrophils (%) (Auto) 90H, Lymphocytes (%) (Auto) 6L, Monocytes (%) (Auto) 4, Eosinophils (%) (Auto) 0, Basophils (%) (Auto) 0, Neutrophils # (Auto) 2.3, Lymphocytes # (Auto) 0.2L, Monocytes # (Auto) 0.1, Eosinophils # (Auto) 0.0, Basophils # (Auto) 0.0, Neutrophils % (Manual) 76, Lymphocytes % (Manual) 4, Monocytes % (Manual) 2, Eosinophils % (Manual) 1, Band Neutrophils 17, Blood Morphology Comment NORMAL, Prothrombin Time 13.6, INR Comment 1.0, Activated Partial Thromboplast Time 30, Sodium Level 135, Potassium Level 4.0, Chloride Level 102, Carbon Dioxide Level 21, Anion Gap 12, Blood Urea Nitrogen 17, Creatinine 1.04, Estimat Glomerular Filtration Rate 51, BUN/Creatinine Ratio 16, Glucose Level 133H, Calcium Level 10.1, Corrected Calcium 10.2H, Magnesium Level 2.3, Total Bilirubin 0.4, Aspartate Amino Transf (AST/SGOT) 32, Alanine Aminotransferase (ALT/SGPT) 25, Alkaline Phosphatase 123, Total Protein 7.5, Albumin 3.9, Amylase Level 106, Lipase 13 01/09/19 19:23: Urine Color AMBERH, Urine Clarity CLEAR, Urine pH 5, Urine Specific [place] 1.025H, Urine Protein 2+H, Urine Glucose (UA) NEGATIVE, Urine Ketones 2+H, Urine Nitrite POSITIVEH, Urine Bilirubin 1+H, Urine Urobilinogen 4H, Urine Leukocyte Esterase 3+H, Urine RBC (Auto) 1+H, Urine RBC NONE, Urine WBC 10-25H, Urine Squamous Epithelial Cells 2-5, Urine Crystals PRESENTH, Urine Uric Acid Crystals FEWH, Urine Bacteria MODERATEH, Urine Casts NONE, Urine Mucus LARGEH, Urine Culture Indicated YES 01/09/19 19:35: Lactic Acid Level 2.27*H 01/09/19 22:03: Lactic Acid Level 1.14 01/10/19 05:20: White Blood Count 1.8L, Red Blood Count 3.76L, Hemoglobin 10.6L, Hematocrit 32L, Mean Corpuscular Volume 85, Mean Corpuscular Hemoglobin 28, Mean Corpuscular Hemoglobin Concent 33, Red Cell Distribution Width 15.6H, Platelet Count 189, Mean Platelet Volume 10.4, Neutrophils (%) (Auto) 84H, Lymphocytes (%) (Auto) 13, Monocytes (%) (Auto) 3, Eosinophils (%) (Auto) 0, Basophils (%) (Auto) 0, Neutrophils # (Auto) 1.5L, Lymphocytes # (Auto) 0.2L, Monocytes # (Auto) 0.1, Eosinophils # (Auto) 0.0, Basophils # (Auto) 0.0, Sodium Level 139, Potassium Level 4.8, Chloride Level 106, Carbon Dioxide Level 21, Anion Gap 12, Blood Urea Nitrogen 16, Creatinine 0.84, Estimat Glomerular Filtration Rate > 60, BUN/Creatinine Ratio 19, Glucose Level 160H, Calcium Level 9.4, Corrected Calcium 9.9, Total Bilirubin 0.4, Aspartate Amino Transf (AST/SGOT) 25, Alanine Aminotransferase (ALT/SGPT) 20, Alkaline Phosphatase 111, Total Protein 6.4, Albumin 3.4 Assessment/Plan Assessment/Plan Assessment/Plan Abdominal pain Constipation ??Sigmoid Diverticulitis Pt looks good right now and got all of her relief after having multiple BM's. I went over the CT myself and agree that the sigmoid colon does not look like the rest of colon (which has a lot of stool in it); sigmoid colon is decompressed and could be thickened. However, since she is doing better she should continue with increased fluids and Miralax. I recommended she get a colonoscopy as an outpt since she has never had one, this will also help look at the sigmoid colon. She is neutropenic, but does not have a fever or change on CT so I don't think translocation of colon bacteria is a concern at this time. I would be happy to see this pt in my clinic as an outpt. Clinical Quality Measures DVT/VTE Risk/Contraindication: Risk Factor Score Per Nursin RFS Level Per Nursing on Admit: 4+=Very High FREDY BELL DO January 10, 2019 14:31
--- NOTE | 2019-01-10 16:19 | Discharge Inst-Simple/Standard ---
Discharge Inst-Standard Patient Instructions/Follow Up Plan of Care/Instructions/FU: Medications as listed on the discharge sequence. Use one dose of MiraLAX before bedtime every day. If stools get loose you may skip one day and then resume. Activity as Tolerated: Yes Goal: Comfort Discharge Diet: No Restrictions JANNET CHAN MD January 10, 2019 16:19
[2019-01-10 16:25] VITALS: BP 158/63
[2019-01-10] MEDS ORDERED: CEFD300C3 PO (17:28)
--- NOTE | 2019-01-10 19:11 | Consultation ---
History of Present Illness History of Present Illness Patient Consulted On(marjorie/time) 01/10/19 19:03 Date Seen by Provider: January 10, 2019 Time Seen by Provider: 19:03 History of Present Illness Mrs. Garcia is a 78 yo female with metastatic breast cancer who was admitted last night with abdominal pain, nausea and vomiting. She is being treated with endocrine therapy and CDK4/6 inhibitor as an outpatient. She was treated with palliative radiation for pain and takes opiates chronically. Son notes that patient has not been aggressive with the suggested bowel regimen. She did not have a bowel movement since Tuesday. This morning, she had 4 large BMs and feels much better now. Allergies and Home Medications Allergies Coded Allergies: No Known Drug Allergies (Unverified , 11/30/18) Home Medications Cefdinir 300 Mg Capsule, 300 MG PO twice a day Prescribed by: JANNET CHAN on 01/10/19 1728 Letrozole 2.5 Mg Tablet, 2.5 MG PO DAILY, (Reported) Ondansetron HCl 8 Mg Tablet, 8 MG PO Q8H PRN for NAUSEA/VOMITING-1ST LINE, (Reported) Oxycodone HCl 10 Mg Tablet, 10 MG PO Q4H PRN for PAIN-SEVERE, (Reported) Palbociclib 125 Mg Capsule, 125 MG PO UD, (Reported) TAKES 1 CAPSULES WITH NOON MEAL DAILY FOR 3 WEEKS THEN OFF 1 WEEK THEN REPEAT Patient Home Medication List Home Medication List Reviewed: Yes Past Ligypvf-Bwcycr-Zrieif Hx Past Med/Social Hx: Reviewed Nursing Past Med/Soc Hx Patient Social History Alcohol Use: Denies Use Recreational Drug Use: No Smoking Status: Never a Smoker 2nd Hand Smoke Exposure: No Recent Foreign Travel: No Contact w/Someone Who Travel: No Recent Infectious Disease Expo: No Recent Hopitalizations: No Seasonal Allergies Seasonal Allergies: No Past Medical History Surgeries: Yes (LEFT BREAST BIOPSY 10/2018) Breast Respiratory: No Cardiac: No Neurological: No Genitourinary: No Gastrointestinal: Yes (CONSTIPATION SINCE STARTING ON MEDICATIONS FOR PAIN AND BREAST CANCER 11/08/18) Musculoskeletal: Yes (BACK PAIN--FROM BONE METS) Endocrine: No HEENT: No Cancer: Yes Breast Did You Recieve Any Treatments: Yes (IN IBERANCE ORAL CHEMO; 10 RADIATION ) What Type of Treatment Did You: Chemotherapy, Radiation METS TO BONE Psychosocial: No Integumentary: No Blood Disorders: No Family Medical History Cardiovascular disease 19 FATHER Completed stroke 19 MOTHER Heart Disease, Stroke Review of Systems-General Constitutional: no symptoms reported EENTM: no symptoms reported Respiratory: no symptoms reported Cardiovascular: no symptoms reported Gastrointestinal: abdominal pain, constipation, nausea, vomiting Genitourinary: no symptoms reported Musculoskeletal: no symptoms reported Skin: no symptoms reported Psychiatric/Neurological: No Symptoms Reported Physical Exam-General Problems Physical Exam Vital Signs Vital Signs - First Documented 01/09/19 01/10/19 18:35 08:11 Temp 98.1 Pulse 71 Resp 18 B/P (MAP) 173/67 (102) Pulse Ox 99 O2 Flow Rate 0.00 Capillary Refill : Less Than 3 Seconds General Appearance: WD/WN, no apparent distress HEENT: normal ENT inspection Neck: normal inspection Respiratory: no respiratory distress, no accessory muscle use Gastrointestinal: non tender, soft Extremities: normal inspection Neurologic/Psychiatric: alert, normal mood/affect, oriented x 3 Assessment/Plan Assessment/Plan Admission Diagnosis/Plan 78 yo female with metastatic breast cancer admitted with bowel impaction from chronic opiate use and UTI. Patient feels much better since she has had multiple BMs. UTI may be treated as outpatient. Since patient is mildly neutropenic from her palbociclib, we will consider reducing the dose as an outpatient. Thank you for allowing me to participate in the care of Mrs. Garcia. Clinical Quality Measures DVT/VTE Risk/Contraindication: Risk Factor Score Per Nursin RFS Level Per Nursing on Admit: 4+=Very High Results Labs Labs Laboratory Tests 01/09/19 19:23: Urine Color AMBERH, Urine Clarity CLEAR, Urine pH 5, Urine Specific [place] 1.025H, Urine Protein 2+H, Urine Glucose (UA) NEGATIVE, Urine Ketones 2+H, Urine Nitrite POSITIVEH, Urine Bilirubin 1+H, Urine Urobilinogen 4H, Urine Leukocyte Esterase 3+H, Urine RBC (Auto) 1+H, Urine RBC NONE, Urine WBC 10-25H, Urine Squamous Epithelial Cells 2-5, Urine Crystals PRESENTH, Urine Uric Acid Crystals FEWH, Urine Bacteria MODERATEH, Urine Casts NONE, Urine Mucus LARGEH, Urine Culture Indicated YES 01/09/19 19:35: Lactic Acid Level 2.27*H 01/09/19 22:03: Lactic Acid Level 1.14 01/10/19 05:20: White Blood Count 1.8L, Red Blood Count 3.76L, Hemoglobin 10.6L, Hematocrit 32L, Mean Corpuscular Volume 85, Mean Corpuscular Hemoglobin 28, Mean Corpuscular Hemoglobin Concent 33, Red Cell Distribution Width 15.6H, Platelet Count 189, Mean Platelet Volume 10.4, Neutrophils (%) (Auto) 84H, Lymphocytes (%) (Auto) 13, Monocytes (%) (Auto) 3, Eosinophils (%) (Auto) 0, Basophils (%) (Auto) 0, Neutrophils # (Auto) 1.5L, Lymphocytes # (Auto) 0.2L, Monocytes # (Auto) 0.1, Eosinophils # (Auto) 0.0, Basophils # (Auto) 0.0, Sodium Level 139, Potassium Level 4.8, Chloride Level 106, Carbon Dioxide Level 21, Anion Gap 12, Blood Urea Nitrogen 16, Creatinine 0.84, Estimat Glomerular Filtration Rate > 60, BUN/Creatinine Ratio 19, Glucose Level 160H, Calcium Level 9.4, Corrected Calcium 9.9, Total Bilirubin 0.4, Aspartate Amino Transf (AST/SGOT) 25, Alanine Aminotransferase (ALT/SGPT) 20, Alkaline Phosphatase 111, Total Protein 6.4, Albumin 3.4 Microbiology 01/09/19 Blood Culture - Preliminary, Resulted No growth 01/09/19 Urine Culture - Final, Complete NO GROWTH BERLIN PICKETT MD January 10, 2019 19:11
[2019-01-11] MEDS ORDERED: LETROZOLE 2.5 MG (FEMARA) TAB PO SCH (09:00)
== END 2019-01-10 16:18 | disposition home or self-care (01) ==
LOC: EDUNIT# 18:26 → ER 18:27 → 4TH 21:18 → UNDOADMOB 21:18 → 4TH 22:35 → UNDODISOB 01-10 17:48
PROVIDERS: ADMIT Internal Medicine; ATTEND Internal Medicine
DX: K59.03 Drug induced constipation (principal); T40.2X5A Adverse effect of other opioids, initial encounter; N39.0 Urinary tract infection, site not specified; D70.1 Agranulocytosis secondary to cancer chemotherapy; T45.1X5A Adverse effect of antineoplastic and immunosuppressive drugs, initial encounter; C50.912 Malignant neoplasm of unspecified site of left female breast; C79.51 Secondary malignant neoplasm of bone; Z79.891 Long term (current) use of opiate analgesic; Z79.899 Other long term (current) drug therapy; Z92.3 Personal history of irradiation
CPT/HCPCS: 36415; 74022; 74176; 80053; 81000; 82150; 83605; 83690; 83735; 85007; 85025; 85027; 85610; 85730; 87040; 87088; 93005; 93041; 96365; 96366; 96375; G0378

== ENCOUNTER 2019-02-02 13:01 | Outpatient (RCR) | payer MEDICARE ==
[2018-11-08 16:49] LABS: BASOPHILS % (AUTO) 0 % (0-10); EOSINOPHILS # (AUTO) 0.2 10^3/uL (0.0-0.3); EOSINOPHILS % (AUTO) 3 % (0-10); HEMATOCRIT 39 % (35-52); HEMOGLOBIN 12.6 G/DL (11.5-16.0); LYMPHOCYTES % (AUTO) 19 % (12-44); MEAN CORPUSCULAR HEMOGLOBIN 28 PG (25-34); MEAN CORPUSCULAR HGB CONC 33 G/DL (32-36); MEAN CORPUSCULAR VOLUME 85 FL (80-99); MEAN PLATELET VOLUME 11.6 FL (7.4-10.4); MONOCYTES # (AUTO) 0.6 X 10^3 (0.0-1.0); MONOCYTES % (AUTO) 10 % (0-12); NEUTROPHILS # (AUTO) 3.7 X 10^3 (1.8-7.8); NEUTROPHILS % (AUTO) 68 % (42-75); PLATELET COUNT 313 10^3/uL (130-400); RED CELL DISTRIBUTION WIDTH 15.4 % (10.0-14.5); WHITE BLOOD COUNT 5.4 10^3/uL (4.3-11.0)
[2018-11-08 17:09] LABS: ALBUMIN 4.4 GM/DL (3.2-4.5); BILIRUBIN,TOTAL 0.3 MG/DL (0.1-1.0); CALCIUM 10.6 MG/DL (8.5-10.1); CREATININE SERUM 1.42 MG/DL (0.60-1.30); POTASSIUM 4.3 MMOL/L (3.6-5.0); TOTAL PROTEIN 8.1 GM/DL (6.4-8.2)
[2018-12-21 15:33] LABS: BASOPHILS % (AUTO) 1 % (0-10); EOSINOPHILS # (AUTO) 0.3 10^3/uL (0.0-0.3); EOSINOPHILS % (AUTO) 7 % (0-10); HEMATOCRIT 34 % (35-52); HEMOGLOBIN 10.8 G/DL (11.5-16.0); LYMPHOCYTES # (AUTO) 0.6 X 10^3 (1.0-4.0); LYMPHOCYTES % (AUTO) 13 % (12-44); MEAN CORPUSCULAR HEMOGLOBIN 28 PG (25-34); MEAN CORPUSCULAR HGB CONC 32 G/DL (32-36); MEAN CORPUSCULAR VOLUME 87 FL (80-99); MONOCYTES # (AUTO) 0.5 X 10^3 (0.0-1.0); MONOCYTES % (AUTO) 11 % (0-12); NEUTROPHILS % (AUTO) 68 % (42-75); PLATELET COUNT 267 10^3/uL (130-400); RED CELL DISTRIBUTION WIDTH 15.3 % (10.0-14.5); WHITE BLOOD COUNT 4.4 10^3/uL (4.3-11.0)
[2018-12-21 16:00] LABS: ALBUMIN 3.7 GM/DL (3.2-4.5); BILIRUBIN,TOTAL 0.3 MG/DL (0.1-1.0); CALCIUM 9.8 MG/DL (8.5-10.1); CREATININE SERUM 0.96 MG/DL (0.60-1.30); POTASSIUM 4.3 MMOL/L (3.6-5.0)
[2018-12-21 16:21] LABS: BILIRUBIN,URINE NEGATIVE (NEGATIVE); CLARITY,URINE VERY CLOUDY; COLOR,URINE YELLOW; GLUCOSE, URINE (UA) NEGATIVE (NEGATIVE); KETONES,URINE NEGATIVE (NEGATIVE); LEUKOCYTE ESTERASE ,URINE 3+ (NEGATIVE); NITRITE,URINE POSITIVE (NEGATIVE); PH,URINE 5 (5-9); PROTEIN,URINE 2+ (NEGATIVE); UROBILINOGEN,URINE NORMAL (NORMAL)
[2018-12-21 16:28] LABS: BACTERIA,URINE MODERATE /HPF; WBC,URINE >100 /HPF
[2019-01-03 14:06] LABS: BASOPHILS % (AUTO) 1 % (0-10); EOSINOPHILS # (AUTO) 0.1 10^3/uL (0.0-0.3); EOSINOPHILS % (AUTO) 6 % (0-10); HEMATOCRIT 32 % (35-52); HEMOGLOBIN 10.2 G/DL (11.5-16.0); LYMPHOCYTES # (AUTO) 0.3 X 10^3 (1.0-4.0); LYMPHOCYTES % (AUTO) 15 % (12-44); MEAN CORPUSCULAR HEMOGLOBIN 28 PG (25-34); MEAN CORPUSCULAR HGB CONC 32 G/DL (32-36); MEAN CORPUSCULAR VOLUME 86 FL (80-99); MEAN PLATELET VOLUME 11.2 FL (7.4-10.4); MONOCYTES # (AUTO) 0.1 X 10^3 (0.0-1.0); MONOCYTES % (AUTO) 5 % (0-12); NEUTROPHILS # (AUTO) 1.3 X 10^3 (1.8-7.8); NEUTROPHILS % (AUTO) 73 % (42-75); PLATELET COUNT 218 10^3/uL (130-400); RED CELL DISTRIBUTION WIDTH 15.1 % (10.0-14.5); WHITE BLOOD COUNT 1.7 10^3/uL (4.3-11.0)
[2019-01-03 14:27] LABS: ALBUMIN 3.7 GM/DL (3.2-4.5); BILIRUBIN,TOTAL 0.2 MG/DL (0.1-1.0); CREATININE SERUM 1.34 MG/DL (0.60-1.30); POTASSIUM 4.3 MMOL/L (3.6-5.0); TOTAL PROTEIN 6.9 GM/DL (6.4-8.2)
[2019-01-19 14:24] LABS: BASOPHILS % (AUTO) 3 % (0-10); EOSINOPHILS % (AUTO) 2 % (0-10); HEMATOCRIT 28 % (35-52); HEMOGLOBIN 9.3 G/DL (11.5-16.0); LYMPHOCYTES # (AUTO) 0.4 X 10^3 (1.0-4.0); LYMPHOCYTES % (AUTO) 33 % (12-44); MEAN CORPUSCULAR HEMOGLOBIN 29 PG (25-34); MEAN CORPUSCULAR HGB CONC 33 G/DL (32-36); MEAN CORPUSCULAR VOLUME 88 FL (80-99); MEAN PLATELET VOLUME 9.6 FL (7.4-10.4); MONOCYTES # (AUTO) 0.1 X 10^3 (0.0-1.0); MONOCYTES % (AUTO) 8 % (0-12); NEUTROPHILS # (AUTO) 0.7 X 10^3 (1.8-7.8); NEUTROPHILS % (AUTO) 54 % (42-75); PLATELET COUNT 261 10^3/uL (130-400); RED CELL DISTRIBUTION WIDTH 18.3 % (10.0-14.5)
[2019-01-19 14:28] LABS: WHITE BLOOD COUNT 1.3 10^3/uL (4.3-11.0)
[2019-01-19 14:45] LABS: ALANINE AMINOTRANSFERASE 15 U/L (0-55); ALBUMIN 3.6 GM/DL (3.2-4.5); ALKALINE PHOSPHATASE 97 U/L (40-136); BILIRUBIN,TOTAL 0.3 MG/DL (0.1-1.0); BUN/CREATININE RATIO 9; CALCIUM 9.3 MG/DL (8.5-10.1); CARBON DIOXIDE 32 MMOL/L (21-32); CHLORIDE 107 MMOL/L (98-107); CREATININE SERUM 0.87 MG/DL (0.60-1.30); GFR ESTIMATED > 60; GLUCOSE 105 MG/DL (70-105); POTASSIUM 3.3 MMOL/L (3.6-5.0); SODIUM 142 MMOL/L (135-145); TOTAL PROTEIN 6.4 GM/DL (6.4-8.2)
[~2019-02-02 13:01] MED LIST changes: +CEFD300C3 PO; +LETR2.5T5 PO; -LIDOCAINE 1% INJ 20 ML 20 ML VIAL INJ ONE; -LIDOCAINE 1% INJ 20 ML 20 ML VIAL ONE; +ONDA8TAB6 PO; +OXYC10TA7 PO; +PALB125C PO
[2019-02-02 13:20] LABS: BASOPHILS # (AUTO) 0.1 10^3/uL (0.0-0.1); BASOPHILS % (AUTO) 4 % (0-10); EOSINOPHILS # (AUTO) 0.1 10^3/uL (0.0-0.3); EOSINOPHILS % (AUTO) 5 % (0-10); HEMATOCRIT 29 % (35-52); HEMOGLOBIN 9.2 G/DL (11.5-16.0); LYMPHOCYTES # (AUTO) 0.6 X 10^3 (1.0-4.0); LYMPHOCYTES % (AUTO) 35 % (12-44); MEAN CORPUSCULAR HEMOGLOBIN 29 PG (25-34); MEAN CORPUSCULAR HGB CONC 32 G/DL (32-36); MEAN CORPUSCULAR VOLUME 92 FL (80-99); MEAN PLATELET VOLUME 10.5 FL (7.4-10.4); MONOCYTES # (AUTO) 0.1 X 10^3 (0.0-1.0); MONOCYTES % (AUTO) 4 % (0-12); NEUTROPHILS # (AUTO) 0.9 X 10^3 (1.8-7.8); NEUTROPHILS % (AUTO) 52 % (42-75); PLATELET COUNT 324 10^3/uL (130-400); RED CELL DISTRIBUTION WIDTH 20.5 % (10.0-14.5); WHITE BLOOD COUNT 1.7 10^3/uL (4.3-11.0)
== END 2019-02-06 | disposition home or self-care (01) ==
LOC: ONC 13:01
PROVIDERS: ATTEND Internal Medicine Hematology & Oncology
DX: Z51.0 Encounter for antineoplastic radiation therapy (principal); C50.212 Malignant neoplasm of upper-inner quadrant of left female breast; C79.51 Secondary malignant neoplasm of bone; G89.3 Neoplasm related pain (acute) (chronic); R35.0 Frequency of micturition; Z17.0 Estrogen receptor positive status [ER+]; Z79.811 Long term (current) use of aromatase inhibitors
CPT/HCPCS: 36415; 77290; 77295; 77300; 77332; 77334; 77336; 77417; 80053; 81000; 85025; 87077; 87088; 87186; 99204; 99213; 99214

== ENCOUNTER 2019-04-27 12:46 | Outpatient (RCR) | payer MEDICARE ==
[2019-02-08 15:47] LABS: BILIRUBIN,URINE NEGATIVE (NEGATIVE); CLARITY,URINE CLEAR; COLOR,URINE YELLOW; GLUCOSE, URINE (UA) NEGATIVE (NEGATIVE); KETONES,URINE NEGATIVE (NEGATIVE); LEUKOCYTE ESTERASE ,URINE 3+ (NEGATIVE); NITRITE,URINE NEGATIVE (NEGATIVE); PH,URINE 5 (5-9); PROTEIN,URINE NEGATIVE (NEGATIVE); UROBILINOGEN,URINE NORMAL (NORMAL)
[2019-02-08 15:57] LABS: BACTERIA,URINE TRACE /HPF
[2019-02-16 09:35] LABS: BASOPHILS # (AUTO) 0.1 10^3/uL (0.0-0.1); BASOPHILS % (AUTO) 4 % (0-10); EOSINOPHILS # (AUTO) 0.1 10^3/uL (0.0-0.3); EOSINOPHILS % (AUTO) 8 % (0-10); HEMATOCRIT 31 % (35-52); HEMOGLOBIN 10.3 G/DL (11.5-16.0); LYMPHOCYTES # (AUTO) 0.5 X 10^3 (1.0-4.0); LYMPHOCYTES % (AUTO) 42 % (12-44); MEAN CORPUSCULAR HEMOGLOBIN 31 PG (25-34); MEAN CORPUSCULAR HGB CONC 33 G/DL (32-36); MEAN CORPUSCULAR VOLUME 94 FL (80-99); MEAN PLATELET VOLUME 10.1 FL (7.4-10.4); MONOCYTES # (AUTO) 0.1 X 10^3 (0.0-1.0); MONOCYTES % (AUTO) 8 % (0-12); NEUTROPHILS # (AUTO) 0.5 X 10^3 (1.8-7.8); NEUTROPHILS % (AUTO) 38 % (42-75); PLATELET COUNT 201 10^3/uL (130-400); RED CELL DISTRIBUTION WIDTH 21.3 % (10.0-14.5)
[2019-02-16 09:39] LABS: WHITE BLOOD COUNT 1.2 10^3/uL (4.3-11.0)
[2019-02-16 09:55] LABS: ALANINE AMINOTRANSFERASE 10 U/L (0-55); ALBUMIN 3.9 GM/DL (3.2-4.5); ALKALINE PHOSPHATASE 88 U/L (40-136); BILIRUBIN,TOTAL 0.3 MG/DL (0.1-1.0); BUN/CREATININE RATIO 16; CALCIUM 9.5 MG/DL (8.5-10.1); CARBON DIOXIDE 22 MMOL/L (21-32); CHLORIDE 107 MMOL/L (98-107); CREATININE SERUM 0.75 MG/DL (0.60-1.30); GFR ESTIMATED > 60; GLUCOSE 100 MG/DL (70-105); POTASSIUM 3.8 MMOL/L (3.6-5.0); SODIUM 138 MMOL/L (135-145); TOTAL PROTEIN 6.7 GM/DL (6.4-8.2)
[2019-03-02 13:31] LABS: HEMATOCRIT 34 % (35-52); HEMOGLOBIN 11.1 G/DL (11.5-16.0); LYMPHOCYTES % (AUTO) 19 % (12-44); MEAN CORPUSCULAR HEMOGLOBIN 31 PG (25-34); MEAN CORPUSCULAR HGB CONC 33 G/DL (32-36); MEAN CORPUSCULAR VOLUME 94 FL (80-99); MEAN PLATELET VOLUME 10.6 FL (7.4-10.4); NEUTROPHILS % (AUTO) 62 % (42-75); PLATELET COUNT 368 10^3/uL (130-400); RED CELL DISTRIBUTION WIDTH 19.4 % (10.0-14.5); WHITE BLOOD COUNT 4.1 10^3/uL (4.3-11.0)
[2019-03-02 13:32] LABS: BASOPHILS # (AUTO) 0.2 10^3/uL (0.0-0.1); BASOPHILS % (AUTO) 4 % (0-10); EOSINOPHILS # (AUTO) 0.3 10^3/uL (0.0-0.3); EOSINOPHILS % (AUTO) 6 % (0-10); LYMPHOCYTES # (AUTO) 0.8 X 10^3 (1.0-4.0); MONOCYTES # (AUTO) 0.4 X 10^3 (0.0-1.0); MONOCYTES % (AUTO) 10 % (0-12); NEUTROPHILS # (AUTO) 2.5 X 10^3 (1.8-7.8)
[2019-03-02 13:52] LABS: BUN/CREATININE RATIO 13; CALCIUM 10.1 MG/DL (8.5-10.1); CARBON DIOXIDE 24 MMOL/L (21-32); CHLORIDE 107 MMOL/L (98-107); CREATININE SERUM 0.85 MG/DL (0.60-1.30); GFR ESTIMATED > 60; GLUCOSE 102 MG/DL (70-105); POTASSIUM 4.1 MMOL/L (3.6-5.0); SODIUM 140 MMOL/L (135-145)
[2019-03-16 10:35] LABS: BASOPHILS # (AUTO) 0.1 10^3/uL (0.0-0.1); BASOPHILS % (AUTO) 2 % (0-10); EOSINOPHILS # (AUTO) 0.3 10^3/uL (0.0-0.3); EOSINOPHILS % (AUTO) 13 % (0-10); HEMATOCRIT 34 % (35-52); HEMOGLOBIN 10.9 G/DL (11.5-16.0); LYMPHOCYTES # (AUTO) 0.6 X 10^3 (1.0-4.0); LYMPHOCYTES % (AUTO) 30 % (12-44); MEAN CORPUSCULAR HEMOGLOBIN 30 PG (25-34); MEAN CORPUSCULAR HGB CONC 32 G/DL (32-36); MEAN CORPUSCULAR VOLUME 94 FL (80-99); MONOCYTES # (AUTO) 0.1 X 10^3 (0.0-1.0); MONOCYTES % (AUTO) 4 % (0-12); NEUTROPHILS % (AUTO) 50 % (42-75); PLATELET COUNT 299 10^3/uL (130-400); RED CELL DISTRIBUTION WIDTH 18.7 % (10.0-14.5); WHITE BLOOD COUNT 2.1 10^3/uL (4.3-11.0)
[2019-03-16 11:04] LABS: BILIRUBIN,TOTAL 0.4 MG/DL (0.1-1.0); CALCIUM 10.3 MG/DL (8.5-10.1); CREATININE SERUM 0.99 MG/DL (0.60-1.30)
[2019-03-30 13:56] LABS: BASOPHILS # (AUTO) 0.1 10^3/uL (0.0-0.1); BASOPHILS % (AUTO) 3 % (0-10); EOSINOPHILS # (AUTO) 0.1 10^3/uL (0.0-0.3); EOSINOPHILS % (AUTO) 5 % (0-10); HEMATOCRIT 31 % (35-52); HEMOGLOBIN 10.2 G/DL (11.5-16.0); LYMPHOCYTES # (AUTO) 0.6 X 10^3 (1.0-4.0); LYMPHOCYTES % (AUTO) 33 % (12-44); MEAN CORPUSCULAR HEMOGLOBIN 31 PG (25-34); MEAN CORPUSCULAR HGB CONC 33 G/DL (32-36); MEAN CORPUSCULAR VOLUME 95 FL (80-99); MEAN PLATELET VOLUME 9.7 FL (7.4-10.4); MONOCYTES # (AUTO) 0.2 X 10^3 (0.0-1.0); MONOCYTES % (AUTO) 11 % (0-12); NEUTROPHILS # (AUTO) 0.8 X 10^3 (1.8-7.8); NEUTROPHILS % (AUTO) 48 % (42-75); PLATELET COUNT 202 10^3/uL (130-400); RED CELL DISTRIBUTION WIDTH 18.1 % (10.0-14.5); WHITE BLOOD COUNT 1.8 10^3/uL (4.3-11.0)
[2019-03-30 14:18] LABS: CALCIUM 10.1 MG/DL (8.5-10.1); CREATININE SERUM 0.91 MG/DL (0.60-1.30); POTASSIUM 3.7 MMOL/L (3.6-5.0)
[2019-04-13 09:57] LABS: BASOPHILS # (AUTO) 0.1 10^3/uL (0.0-0.1); BASOPHILS % (AUTO) 5 % (0-10); EOSINOPHILS # (AUTO) 0.1 10^3/uL (0.0-0.3); EOSINOPHILS % (AUTO) 8 % (0-10); HEMATOCRIT 32 % (35-52); HEMOGLOBIN 10.2 G/DL (11.5-16.0); LYMPHOCYTES # (AUTO) 0.5 X 10^3 (1.0-4.0); LYMPHOCYTES % (AUTO) 33 % (12-44); MEAN CORPUSCULAR HEMOGLOBIN 31 PG (25-34); MEAN CORPUSCULAR HGB CONC 32 G/DL (32-36); MEAN CORPUSCULAR VOLUME 96 FL (80-99); MEAN PLATELET VOLUME 10.3 FL (7.4-10.4); MONOCYTES # (AUTO) 0.1 X 10^3 (0.0-1.0); MONOCYTES % (AUTO) 6 % (0-12); NEUTROPHILS # (AUTO) 0.8 X 10^3 (1.8-7.8); NEUTROPHILS % (AUTO) 48 % (42-75); PLATELET COUNT 319 10^3/uL (130-400); RED CELL DISTRIBUTION WIDTH 16.5 % (10.0-14.5); WHITE BLOOD COUNT 1.6 10^3/uL (4.3-11.0)
[2019-04-13 10:17] LABS: ALBUMIN 3.8 GM/DL (3.2-4.5); BILIRUBIN,TOTAL 0.4 MG/DL (0.1-1.0); CALCIUM 9.7 MG/DL (8.5-10.1); CREATININE SERUM 0.93 MG/DL (0.60-1.30); POTASSIUM 3.9 MMOL/L (3.6-5.0); TOTAL PROTEIN 6.6 GM/DL (6.4-8.2)
[2019-04-27 13:14] LABS: BASOPHILS % (AUTO) 3 % (0-10); EOSINOPHILS # (AUTO) 0.1 10^3/uL (0.0-0.3); EOSINOPHILS % (AUTO) 10 % (0-10); HEMATOCRIT 30 % (35-52); HEMOGLOBIN 10.1 G/DL (11.5-16.0); LYMPHOCYTES # (AUTO) 0.5 X 10^3 (1.0-4.0); LYMPHOCYTES % (AUTO) 39 % (12-44); MEAN CORPUSCULAR HEMOGLOBIN 32 PG (25-34); MEAN CORPUSCULAR HGB CONC 33 G/DL (32-36); MEAN CORPUSCULAR VOLUME 97 FL (80-99); MONOCYTES # (AUTO) 0.1 X 10^3 (0.0-1.0); MONOCYTES % (AUTO) 10 % (0-12); NEUTROPHILS # (AUTO) 0.5 X 10^3 (1.8-7.8); NEUTROPHILS % (AUTO) 38 % (42-75); PLATELET COUNT 186 10^3/uL (130-400); RED CELL DISTRIBUTION WIDTH 15.8 % (10.0-14.5)
[2019-04-27 13:15] LABS: WHITE BLOOD COUNT 1.4 10^3/uL (4.3-11.0)
== END 2019-05-09 | disposition home or self-care (01) ==
LOC: ONC 12:46
PROVIDERS: ATTEND Internal Medicine Hematology & Oncology
DX: C50.212 Malignant neoplasm of upper-inner quadrant of left female breast (principal); C79.51 Secondary malignant neoplasm of bone; G89.3 Neoplasm related pain (acute) (chronic); R35.0 Frequency of micturition; Z17.0 Estrogen receptor positive status [ER+]; Z79.811 Long term (current) use of aromatase inhibitors
CPT/HCPCS: 36415; 80048; 80053; 81000; 85025; 87088; 99213

== ENCOUNTER → 2019-06-15 | Outpatient (CLI) | payer MEDICARE ==
[~2019-06-15] MED LIST changes: +BARIUM SUSPENSION 2.1% (VANILLA SILQ) 450 ML PO ONE; +CATHETER FLUSH 10 ML SYR IV PRN; +HOLD METFORMIN - RECEIVED CONTRAST 20 ML VIAL IV SCH; +IOHEXOL 350 MG/ML 100 ML (OMNIPAQUE 350) VIAL IV ONE; +NS 100 ML (IVPB) BAG IV ONE
--- NOTE | 2019-06-15 12:38 | Diagnostic Imaging Report ---
PROCEDURE: CT chest with contrast, CT abdomen and pelvis with and without contrast. TECHNIQUE: Pre and post intravenous contrast axial imaging of the abdomen and pelvis and post contrast axial imaging of the chest were performed. Auto Exposure Controls were utilized during the CT exam to meet ALARA standards for radiation dose reduction. INDICATION: Breast cancer with bone metastases. COMPARISON: Correlation is made with prior CT from 02/09/2019. FINDINGS: CT chest: Previously noted left breast mass measures 3.1 cm compared with 3.4 cm. No internal mammary lymphadenopathy is seen. The right axilla is unremarkable. The small lymph node in the left axilla continues to decrease in size, measuring approximately 5 mm x 6 mm, compared with 8 mm x 9 mm on prior. No definite mediastinal or hilar lymphadenopathy is seen. No pericardial or pleural fluid is identified. There is a moderate-sized hiatal hernia present. Biapical opacities appear similar to prior exam. The area of linear density with some associated nodularity in the left upper lobe appears stable. Left lower lobe nodule posterolaterally is stable at 7 mm. Subpleural nodule posteriorly in left lower lobe, image 69, is stable at 3 mm. Small nodule in the superior segment of the left lower lobe, image 44, is stable at 3 mm. A left upper lobe granuloma is again noted. Right lung appears to be clear. Sclerotic lesions involving thoracic spine and bilateral ribs are again seen and not significantly changed. IMPRESSION: Continued decrease in size of left breast mass and left axillary lymph node when compared with prior study from 02/09/2019. Pulmonary nodules are stable. Osseous metastases are unchanged. CT abdomen and pelvis: No discrete liver mass is identified. The gallbladder is unremarkable. No biliary ductal dilatation is seen. Pancreas and spleen are unremarkable. No adrenal mass is detected. Kidneys are unremarkable. Aorta is heavily calcified but nonaneurysmal. No central retroperitoneal or mesenteric lymphadenopathy is seen. Bowel loops are normal in caliber. No obstruction is identified. There is no free fluid or loculated fluid collection. The bladder and uterus are unremarkable. Previously noted right-sided superior and inferior pubic rami fractures and right sacral alar fractures are again noted. Mixed sclerotic and lytic lesions throughout the bony pelvis and lumbar spine appear similar to prior exam, consistent with osseous metastatic disease. IMPRESSION: Overall, stable CT abdomen and pelvis since exam from 02/09/2019. Pelvic fractures and osseous metastases are unchanged. No abdominal or pelvic lymphadenopathy is identified. Dictated by: Dictated on workstation # [id number]
--- NOTE | 2019-06-15 14:51 | Diagnostic Imaging Report ---
EXAMINATION: Whole body bone scan. INDICATION: Breast cancer. TECHNIQUE: This study was performed following administration of 26.6 mCi 99m-technetium MDP. Anterior and posterior whole body images were obtained as well as spot lateral images of the skull and cervical and thoracic spine. The previous whole body bone scan of 02/09/2019 noted abnormal uptake involving the sternum, spine, pelvis, femurs, humeri, ribs, and calvarium. On this exam, those areas of abnormal uptake are again identified. The lesions involving the calvarium, the ribs, and left humeral mid shaft do seem less prominent. Conversely, there is somewhat greater uptake in the lesion involving the lateral femoral condyle of the right femur. The other bony lesions are essentially no different. There is excretion of the radiotracer by both kidneys. IMPRESSION: 1. The areas of abnormal uptake involving the ribs, the calvarium, and the mid shaft of the left humerus seen previously are less striking on this exam. The lesion involving the distal lateral femoral condyle of the right femur is somewhat more intense, however. 2. No new area of abnormal uptake has developed. Dictated by: Dictated on workstation # [id number]
== END ==
LOC: CARD 10:57
PROVIDERS: ATTEND Internal Medicine Hematology & Oncology
DX: Z01.89 Encounter for other specified special examinations (principal); C50.919 Malignant neoplasm of unspecified site of unspecified female breast; C79.51 Secondary malignant neoplasm of bone; M84.550A Pathological fracture in neoplastic disease, pelvis, initial encounter for fracture
CPT/HCPCS: 71260; 74178; 78306

== ENCOUNTER 2019-08-01 12:57 | Outpatient (RCR) | payer MEDICARE ==
[2019-05-11 11:17] LABS: BASOPHILS # (AUTO) 0.2 10^3/uL (0.0-0.1); BASOPHILS % (AUTO) 6 % (0-10); EOSINOPHILS # (AUTO) 0.2 10^3/uL (0.0-0.3); EOSINOPHILS % (AUTO) 8 % (0-10); HEMATOCRIT 32 % (35-52); HEMOGLOBIN 10.3 G/DL (11.5-16.0); LYMPHOCYTES # (AUTO) 0.6 X 10^3 (1.0-4.0); LYMPHOCYTES % (AUTO) 25 % (12-44); MEAN CORPUSCULAR HEMOGLOBIN 32 PG (25-34); MEAN CORPUSCULAR HGB CONC 33 G/DL (32-36); MEAN CORPUSCULAR VOLUME 98 FL (80-99); MEAN PLATELET VOLUME 10.1 FL (7.4-10.4); MONOCYTES # (AUTO) 0.1 X 10^3 (0.0-1.0); MONOCYTES % (AUTO) 4 % (0-12); NEUTROPHILS # (AUTO) 1.3 X 10^3 (1.8-7.8); NEUTROPHILS % (AUTO) 56 % (42-75); PLATELET COUNT 307 10^3/uL (130-400); RED CELL DISTRIBUTION WIDTH 15.6 % (10.0-14.5); WHITE BLOOD COUNT 2.3 10^3/uL (4.3-11.0)
[2019-05-18 10:06] LABS: BASOPHILS # (AUTO) 0.1 10^3/uL (0.0-0.1); BASOPHILS % (AUTO) 4 % (0-10); EOSINOPHILS # (AUTO) 0.2 10^3/uL (0.0-0.3); EOSINOPHILS % (AUTO) 10 % (0-10); HEMATOCRIT 33 % (35-52); HEMOGLOBIN 11.1 G/DL (11.5-16.0); LYMPHOCYTES # (AUTO) 0.5 X 10^3 (1.0-4.0); LYMPHOCYTES % (AUTO) 28 % (12-44); MEAN CORPUSCULAR HEMOGLOBIN 33 PG (25-34); MEAN CORPUSCULAR HGB CONC 34 G/DL (32-36); MEAN CORPUSCULAR VOLUME 97 FL (80-99); MEAN PLATELET VOLUME 10.5 FL (7.4-10.4); MONOCYTES # (AUTO) 0.1 X 10^3 (0.0-1.0); MONOCYTES % (AUTO) 7 % (0-12); NEUTROPHILS % (AUTO) 51 % (42-75); PLATELET COUNT 287 10^3/uL (130-400); RED CELL DISTRIBUTION WIDTH 15.5 % (10.0-14.5); WHITE BLOOD COUNT 1.9 10^3/uL (4.3-11.0)
[2019-05-18 10:43] LABS: ALANINE AMINOTRANSFERASE 16 U/L (0-55); ALBUMIN 4.1 GM/DL (3.2-4.5); ALKALINE PHOSPHATASE 78 U/L (40-136); BILIRUBIN,TOTAL 0.4 MG/DL (0.1-1.0); BUN/CREATININE RATIO 14; CARBON DIOXIDE 24 MMOL/L (21-32); CHLORIDE 108 MMOL/L (98-107); CREATININE SERUM 0.83 MG/DL (0.60-1.30); GFR ESTIMATED > 60; GLUCOSE 95 MG/DL (70-105); SODIUM 141 MMOL/L (135-145)
[2019-06-01 13:49] LABS: BASOPHILS # (AUTO) 0.1 10^3/uL (0.0-0.1); BASOPHILS % (AUTO) 3 % (0-10); EOSINOPHILS # (AUTO) 0.3 10^3/uL (0.0-0.3); EOSINOPHILS % (AUTO) 11 % (0-10); HEMATOCRIT 32 % (35-52); HEMOGLOBIN 10.6 G/DL (11.5-16.0); LYMPHOCYTES # (AUTO) 0.6 X 10^3 (1.0-4.0); LYMPHOCYTES % (AUTO) 28 % (12-44); MEAN CORPUSCULAR HEMOGLOBIN 32 PG (25-34); MEAN CORPUSCULAR HGB CONC 33 G/DL (32-36); MEAN CORPUSCULAR VOLUME 97 FL (80-99); MEAN PLATELET VOLUME 9.5 FL (7.4-10.4); MONOCYTES # (AUTO) 0.3 X 10^3 (0.0-1.0); MONOCYTES % (AUTO) 13 % (0-12); NEUTROPHILS # (AUTO) 1.1 X 10^3 (1.8-7.8); NEUTROPHILS % (AUTO) 46 % (42-75); PLATELET COUNT 203 10^3/uL (130-400); RED CELL DISTRIBUTION WIDTH 15.5 % (10.0-14.5); WHITE BLOOD COUNT 2.3 10^3/uL (4.3-11.0)
[2019-06-21 10:41] LABS: ALANINE AMINOTRANSFERASE 11 U/L (0-55); ALBUMIN 3.7 GM/DL (3.2-4.5); ALKALINE PHOSPHATASE 68 U/L (40-136); BILIRUBIN,TOTAL 0.4 MG/DL (0.1-1.0); BUN/CREATININE RATIO 18; CALCIUM 9.5 MG/DL (8.5-10.1); CARBON DIOXIDE 21 MMOL/L (21-32); CHLORIDE 109 MMOL/L (98-107); CREATININE SERUM 0.78 MG/DL (0.60-1.30); GFR ESTIMATED > 60; GLUCOSE 98 MG/DL (70-105); POTASSIUM 4.1 MMOL/L (3.6-5.0); SODIUM 141 MMOL/L (135-145); TOTAL PROTEIN 6.6 GM/DL (6.4-8.2)
[2019-06-21 10:56] LABS: BASOPHILS # (AUTO) 0.1 10^3/uL (0.0-0.1); BASOPHILS % (AUTO) 3 % (0-10); EOSINOPHILS # (AUTO) 0.1 10^3/uL (0.0-0.3); EOSINOPHILS % (AUTO) 7 % (0-10); HEMATOCRIT 32 % (35-52); HEMOGLOBIN 10.9 G/DL (11.5-16.0); LYMPHOCYTES # (AUTO) 0.5 X 10^3 (1.0-4.0); LYMPHOCYTES % (AUTO) 23 % (12-44); MEAN CORPUSCULAR HEMOGLOBIN 33 PG (25-34); MEAN CORPUSCULAR HGB CONC 34 G/DL (32-36); MEAN CORPUSCULAR VOLUME 97 FL (80-99); MEAN PLATELET VOLUME 10.4 FL (7.4-10.4); MONOCYTES # (AUTO) 0.2 X 10^3 (0.0-1.0); MONOCYTES % (AUTO) 7 % (0-12); NEUTROPHILS # (AUTO) 1.3 X 10^3 (1.8-7.8); NEUTROPHILS % (AUTO) 60 % (42-75); PLATELET COUNT 168 10^3/uL (130-400); RED CELL DISTRIBUTION WIDTH 14.9 % (10.0-14.5); WHITE BLOOD COUNT 2.1 10^3/uL (4.3-11.0)
[2019-07-05 13:07] LABS: BASOPHILS # (AUTO) 0.1 10^3/uL (0.0-0.1); BASOPHILS % (AUTO) 5 % (0-10); EOSINOPHILS # (AUTO) 0.2 10^3/uL (0.0-0.3); EOSINOPHILS % (AUTO) 9 % (0-10); HEMATOCRIT 34 % (35-52); HEMOGLOBIN 11.3 G/DL (11.5-16.0); LYMPHOCYTES # (AUTO) 0.5 X 10^3 (1.0-4.0); LYMPHOCYTES % (AUTO) 24 % (12-44); MEAN CORPUSCULAR HEMOGLOBIN 32 PG (25-34); MEAN CORPUSCULAR HGB CONC 33 G/DL (32-36); MEAN CORPUSCULAR VOLUME 96 FL (80-99); MEAN PLATELET VOLUME 9.5 FL (7.4-10.4); MONOCYTES # (AUTO) 0.1 X 10^3 (0.0-1.0); MONOCYTES % (AUTO) 6 % (0-12); NEUTROPHILS # (AUTO) 1.3 X 10^3 (1.8-7.8); NEUTROPHILS % (AUTO) 57 % (42-75); PLATELET COUNT 289 10^3/uL (130-400); RED CELL DISTRIBUTION WIDTH 15.2 % (10.0-14.5); WHITE BLOOD COUNT 2.2 10^3/uL (4.3-11.0)
[2019-07-18 15:14] LABS: BASOPHILS % (AUTO) 2 % (0-10); EOSINOPHILS # (AUTO) 0.2 10^3/uL (0.0-0.3); EOSINOPHILS % (AUTO) 11 % (0-10); HEMATOCRIT 33 % (35-52); HEMOGLOBIN 11.1 G/DL (11.5-16.0); LYMPHOCYTES # (AUTO) 0.6 X 10^3 (1.0-4.0); LYMPHOCYTES % (AUTO) 32 % (12-44); MEAN CORPUSCULAR HEMOGLOBIN 32 PG (25-34); MEAN CORPUSCULAR HGB CONC 33 G/DL (32-36); MEAN CORPUSCULAR VOLUME 97 FL (80-99); MEAN PLATELET VOLUME 10.8 FL (7.4-10.4); MONOCYTES # (AUTO) 0.1 X 10^3 (0.0-1.0); MONOCYTES % (AUTO) 7 % (0-12); NEUTROPHILS # (AUTO) 0.8 X 10^3 (1.8-7.8); NEUTROPHILS % (AUTO) 47 % (42-75); PLATELET COUNT 196 10^3/uL (130-400); RED CELL DISTRIBUTION WIDTH 14.7 % (10.0-14.5); WHITE BLOOD COUNT 1.7 10^3/uL (4.3-11.0)
[2019-07-18 15:26] LABS: ALANINE AMINOTRANSFERASE 8 U/L (0-55); ALBUMIN 3.9 GM/DL (3.2-4.5); ALKALINE PHOSPHATASE 67 U/L (40-136); BILIRUBIN,TOTAL 0.3 MG/DL (0.1-1.0); BUN/CREATININE RATIO 16; CALCIUM 8.3 MG/DL (8.5-10.1); CARBON DIOXIDE 22 MMOL/L (21-32); CHLORIDE 111 MMOL/L (98-107); CREATININE SERUM 0.82 MG/DL (0.60-1.30); GFR ESTIMATED > 60; GLUCOSE 127 MG/DL (70-105); POTASSIUM 3.7 MMOL/L (3.6-5.0); SODIUM 142 MMOL/L (135-145); TOTAL PROTEIN 6.6 GM/DL (6.4-8.2)
[~2019-08-01 12:57] MED LIST changes: -BARIUM SUSPENSION 2.1% (VANILLA SILQ) 450 ML PO ONE; -CATHETER FLUSH 10 ML SYR IV PRN; +DENOSUMAB 120 MG/1.7 ML (XGEVA) SQ SCH; -HOLD METFORMIN - RECEIVED CONTRAST 20 ML VIAL IV SCH; -IOHEXOL 350 MG/ML 100 ML (OMNIPAQUE 350) VIAL IV ONE; -NS 100 ML (IVPB) BAG IV ONE
[2019-08-01 13:31] LABS: BASOPHILS # (AUTO) 0.1 10^3/uL (0.0-0.1); BASOPHILS % (AUTO) 4 % (0-10); EOSINOPHILS # (AUTO) 0.2 10^3/uL (0.0-0.3); EOSINOPHILS % (AUTO) 10 % (0-10); HEMATOCRIT 33 % (35-52); LYMPHOCYTES # (AUTO) 0.4 X 10^3 (1.0-4.0); LYMPHOCYTES % (AUTO) 18 % (12-44); MEAN CORPUSCULAR HEMOGLOBIN 32 PG (25-34); MEAN CORPUSCULAR HGB CONC 34 G/DL (32-36); MEAN CORPUSCULAR VOLUME 95 FL (80-99); MEAN PLATELET VOLUME 10.1 FL (7.4-10.4); MONOCYTES # (AUTO) 0.1 X 10^3 (0.0-1.0); MONOCYTES % (AUTO) 5 % (0-12); NEUTROPHILS # (AUTO) 1.5 X 10^3 (1.8-7.8); NEUTROPHILS % (AUTO) 63 % (42-75); PLATELET COUNT 269 10^3/uL (130-400); RED CELL DISTRIBUTION WIDTH 14.5 % (10.0-14.5); WHITE BLOOD COUNT 2.4 10^3/uL (4.3-11.0)
== END 2019-08-09 | disposition home or self-care (01) ==
LOC: ONC 12:57
PROVIDERS: ATTEND Internal Medicine Hematology & Oncology
DX: C50.212 Malignant neoplasm of upper-inner quadrant of left female breast (principal); C79.51 Secondary malignant neoplasm of bone; G89.3 Neoplasm related pain (acute) (chronic); R35.0 Frequency of micturition; Z17.0 Estrogen receptor positive status [ER+]; Z79.811 Long term (current) use of aromatase inhibitors
CPT/HCPCS: 36415; 80053; 85025; 96372; 99213

== ENCOUNTER → 2019-09-10 | Outpatient (CLI) | payer MEDICARE ==
[~2019-09-10] MED LIST changes: -DENOSUMAB 120 MG/1.7 ML (XGEVA) SQ SCH
--- NOTE | 2019-09-10 15:04 | Diagnostic Imaging Report ---
EXAMINATION: CT Chest with intravenous contrast, CT Abdomen and Pelvis without and with intravenous contrast. TECHNIQUE: Pre and post intravenous contrast axial imaging of the abdomen and pelvis and post contrast axial imaging of the chest were performed. All CT scans use one or more of the following dose optimizing techniques: automated exposure control, MA and/or KvP adjustment based on a patient size and exam type, or iterative reconstruction. HISTORY: Chest tightness, breast cancer. COMPARISON: 06/15/2019 FINDINGS: There is no edema or pneumonia. No pleural effusion. No pneumothorax. There is a stable 7 mm left lower lobe pulmonary nodule. Atelectasis and scarring in the left upper lobe is unchanged. No new pulmonary nodules are seen. Left breast mass is mildly decreased in size measuring 2.8 x 2.6 cm, previously 3.1 x 2.9 cm. There is a large hiatal hernia. Heart size is normal. No pericardial effusion. Aorta is normal in caliber. There is no axillary or supraclavicular lymphadenopathy. There is no mediastinal lymphadenopathy. The liver is normal without focal lesion. There is no biliary ductal dilation. Gallbladder is normal. Pancreas is normal. Spleen is normal. Adrenal glands are normal. The kidneys are normal. There is no hydronephrosis. Urinary bladder is normal. There are no dilated loops of large or small bowel. No obstruction or inflammation. No free fluid or air. No abdominal or pelvic lymphadenopathy. Aorta is normal in caliber without aneurysm. There are bilateral right superior and inferior pubic rami fractures which are unchanged. Extensive mixed lytic and sclerotic lesions throughout the skeleton are unchanged as well. IMPRESSION: 1. Minimal decrease in size of left breast mass with stable osseous metastatic disease and left lower lobe pulmonary nodule. 2. Unchanged right superior and inferior pubic rami fractures. Dictated by: Dictated on workstation # [id number]
== END ==
LOC: RAD 12:03
PROVIDERS: ATTEND Internal Medicine Hematology & Oncology
DX: C50.212 Malignant neoplasm of upper-inner quadrant of left female breast (principal); C79.51 Secondary malignant neoplasm of bone; S32.511A Fracture of superior rim of right pubis, initial encounter for closed fracture; R91.1 Solitary pulmonary nodule
CPT/HCPCS: 71260; 74178

== ENCOUNTER 2019-11-09 15:49 | Outpatient (RCR) | payer MEDICARE ==
[2019-08-17 15:01] LABS: BASOPHILS # (AUTO) 0.1 10^3/uL (0.0-0.1); BASOPHILS % (AUTO) 4 % (0-10); EOSINOPHILS # (AUTO) 0.2 10^3/uL (0.0-0.3); EOSINOPHILS % (AUTO) 10 % (0-10); HEMATOCRIT 34 % (35-52); HEMOGLOBIN 11.4 G/DL (11.5-16.0); LYMPHOCYTES # (AUTO) 0.4 X 10^3 (1.0-4.0); LYMPHOCYTES % (AUTO) 24 % (12-44); MEAN CORPUSCULAR HEMOGLOBIN 32 PG (25-34); MEAN CORPUSCULAR HGB CONC 33 G/DL (32-36); MEAN CORPUSCULAR VOLUME 95 FL (80-99); MEAN PLATELET VOLUME 10.3 FL (7.4-10.4); MONOCYTES # (AUTO) 0.2 X 10^3 (0.0-1.0); MONOCYTES % (AUTO) 9 % (0-12); NEUTROPHILS % (AUTO) 54 % (42-75); PLATELET COUNT 200 10^3/uL (130-400); RED CELL DISTRIBUTION WIDTH 14.7 % (10.0-14.5); WHITE BLOOD COUNT 1.8 10^3/uL (4.3-11.0)
[2019-08-31 12:57] LABS: BASOPHILS # (AUTO) 0.1 10^3/uL (0.0-0.1); BASOPHILS % (AUTO) 3 % (0-10); EOSINOPHILS # (AUTO) 0.2 10^3/uL (0.0-0.3); EOSINOPHILS % (AUTO) 8 % (0-10); HEMATOCRIT 35 % (35-52); HEMOGLOBIN 11.8 G/DL (11.5-16.0); LYMPHOCYTES # (AUTO) 0.4 X 10^3 (1.0-4.0); LYMPHOCYTES % (AUTO) 15 % (12-44); MEAN CORPUSCULAR HEMOGLOBIN 31 PG (25-34); MEAN CORPUSCULAR HGB CONC 33 G/DL (32-36); MEAN CORPUSCULAR VOLUME 94 FL (80-99); MEAN PLATELET VOLUME 10.3 FL (7.4-10.4); MONOCYTES # (AUTO) 0.1 X 10^3 (0.0-1.0); MONOCYTES % (AUTO) 5 % (0-12); NEUTROPHILS # (AUTO) 1.9 X 10^3 (1.8-7.8); NEUTROPHILS % (AUTO) 70 % (42-75); PLATELET COUNT 330 10^3/uL (130-400); RED CELL DISTRIBUTION WIDTH 14.5 % (10.0-14.5); WHITE BLOOD COUNT 2.8 10^3/uL (4.3-11.0)
[2019-09-10 13:14] LABS: BUN/CREATININE RATIO 14; CARBON DIOXIDE 23 MMOL/L (21-32); CHLORIDE 108 MMOL/L (98-107); CREATININE SERUM 0.74 MG/DL (0.60-1.30); GFR ESTIMATED > 60; GLUCOSE 107 MG/DL (70-105); POTASSIUM 3.8 MMOL/L (3.6-5.0); SODIUM 140 MMOL/L (135-145)
[2019-09-14 15:11] LABS: BASOPHILS # (AUTO) 0.1 10^3/uL (0.0-0.1); BASOPHILS % (AUTO) 4 % (0-10); EOSINOPHILS # (AUTO) 0.2 10^3/uL (0.0-0.3); EOSINOPHILS % (AUTO) 9 % (0-10); HEMATOCRIT 35 % (35-52); HEMOGLOBIN 11.7 G/DL (11.5-16.0); LYMPHOCYTES # (AUTO) 0.5 X 10^3 (1.0-4.0); LYMPHOCYTES % (AUTO) 29 % (12-44); MEAN CORPUSCULAR HEMOGLOBIN 31 PG (25-34); MEAN CORPUSCULAR HGB CONC 33 G/DL (32-36); MEAN CORPUSCULAR VOLUME 94 FL (80-99); MEAN PLATELET VOLUME 10.3 FL (7.4-10.4); MONOCYTES # (AUTO) 0.2 X 10^3 (0.0-1.0); MONOCYTES % (AUTO) 9 % (0-12); NEUTROPHILS # (AUTO) 0.8 X 10^3 (1.8-7.8); NEUTROPHILS % (AUTO) 49 % (42-75); PLATELET COUNT 181 10^3/uL (130-400); RED CELL DISTRIBUTION WIDTH 14.5 % (10.0-14.5); WHITE BLOOD COUNT 1.6 10^3/uL (4.3-11.0)
[2019-09-14 15:31] LABS: ALANINE AMINOTRANSFERASE 9 U/L (0-55); ALKALINE PHOSPHATASE 59 U/L (40-136); BILIRUBIN,TOTAL 0.4 MG/DL (0.1-1.0); BUN/CREATININE RATIO 12; CALCIUM 9.4 MG/DL (8.5-10.1); CARBON DIOXIDE 24 MMOL/L (21-32); CHLORIDE 108 MMOL/L (98-107); CREATININE SERUM 0.86 MG/DL (0.60-1.30); GFR ESTIMATED > 60; GLUCOSE 97 MG/DL (70-105); POTASSIUM 3.8 MMOL/L (3.6-5.0); SODIUM 141 MMOL/L (135-145)
[2019-10-12 15:17] LABS: BASOPHILS # (AUTO) 0.1 10^3/uL (0.0-0.1); BASOPHILS % (AUTO) 4 % (0-10); EOSINOPHILS # (AUTO) 0.1 10^3/uL (0.0-0.3); EOSINOPHILS % (AUTO) 8 % (0-10); HEMATOCRIT 36 % (35-52); HEMOGLOBIN 11.7 G/DL (11.5-16.0); LYMPHOCYTES # (AUTO) 0.6 X 10^3 (1.0-4.0); LYMPHOCYTES % (AUTO) 38 % (12-44); MEAN CORPUSCULAR HEMOGLOBIN 31 PG (25-34); MEAN CORPUSCULAR HGB CONC 33 G/DL (32-36); MEAN CORPUSCULAR VOLUME 95 FL (80-99); MEAN PLATELET VOLUME 10.3 FL (7.4-10.4); MONOCYTES # (AUTO) 0.2 X 10^3 (0.0-1.0); MONOCYTES % (AUTO) 11 % (0-12); NEUTROPHILS # (AUTO) 0.6 X 10^3 (1.8-7.8); NEUTROPHILS % (AUTO) 38 % (42-75); PLATELET COUNT 176 10^3/uL (130-400); RED CELL DISTRIBUTION WIDTH 14.5 % (10.0-14.5); WHITE BLOOD COUNT 1.7 10^3/uL (4.3-11.0)
[2019-10-12 15:50] LABS: ALANINE AMINOTRANSFERASE 11 U/L (0-55); ALBUMIN 4.2 GM/DL (3.2-4.5); ALKALINE PHOSPHATASE 53 U/L (40-136); BILIRUBIN,TOTAL 0.4 MG/DL (0.1-1.0); BUN/CREATININE RATIO 13; CALCIUM 9.8 MG/DL (8.5-10.1); CARBON DIOXIDE 25 MMOL/L (21-32); CHLORIDE 107 MMOL/L (98-107); GFR ESTIMATED > 60; GLUCOSE 98 MG/DL (70-105); SODIUM 141 MMOL/L (135-145); TOTAL PROTEIN 7.1 GM/DL (6.4-8.2)
[~2019-11-09 15:49] MED LIST changes: +DENOSUMAB 120 MG/1.7 ML (XGEVA) SQ SCH; -LETR2.5T5 PO; +LETR2.5T6 PO
[2019-11-09 16:06] LABS: BASOPHILS # (AUTO) 0.1 10^3/uL (0.0-0.1); BASOPHILS % (AUTO) 3 % (0-10); EOSINOPHILS # (AUTO) 0.4 10^3/uL (0.0-0.3); EOSINOPHILS % (AUTO) 10 % (0-10); HEMATOCRIT 38 % (35-52); HEMOGLOBIN 12.6 G/DL (11.5-16.0); LYMPHOCYTES % (AUTO) 27 % (12-44); MEAN CORPUSCULAR HEMOGLOBIN 31 PG (25-34); MEAN CORPUSCULAR HGB CONC 34 G/DL (32-36); MEAN CORPUSCULAR VOLUME 94 FL (80-99); MEAN PLATELET VOLUME 10.5 FL (7.4-10.4); MONOCYTES # (AUTO) 0.4 X 10^3 (0.0-1.0); MONOCYTES % (AUTO) 11 % (0-12); NEUTROPHILS # (AUTO) 1.9 X 10^3 (1.8-7.8); NEUTROPHILS % (AUTO) 49 % (42-75); PLATELET COUNT 278 10^3/uL (130-400); RED CELL DISTRIBUTION WIDTH 14.5 % (10.0-14.5); WHITE BLOOD COUNT 3.8 10^3/uL (4.3-11.0)
== END 2019-11-15 | disposition home or self-care (01) ==
LOC: ONC 15:49
PROVIDERS: ATTEND Internal Medicine Hematology & Oncology
DX: C50.212 Malignant neoplasm of upper-inner quadrant of left female breast (principal); C79.51 Secondary malignant neoplasm of bone; G89.3 Neoplasm related pain (acute) (chronic); R35.0 Frequency of micturition; Z17.0 Estrogen receptor positive status [ER+]; Z79.811 Long term (current) use of aromatase inhibitors
CPT/HCPCS: 80048; 80053; 85025; 96372

== ENCOUNTER 2020-01-07 13:42 | Outpatient (RCR) | payer MEDICARE ==
[2019-12-10 14:56] LABS: BASOPHILS # (AUTO) 0.1 10^3/uL (0.0-0.1); BASOPHILS % (AUTO) 3 % (0-10); EOSINOPHILS # (AUTO) 0.1 10^3/uL (0.0-0.3); EOSINOPHILS % (AUTO) 7 % (0-10); HEMATOCRIT 33 % (35-52); LYMPHOCYTES # (AUTO) 0.5 X 10^3 (1.0-4.0); LYMPHOCYTES % (AUTO) 33 % (12-44); MEAN CORPUSCULAR HEMOGLOBIN 32 PG (25-34); MEAN CORPUSCULAR HGB CONC 34 G/DL (32-36); MEAN CORPUSCULAR VOLUME 95 FL (80-99); MEAN PLATELET VOLUME 9.9 FL (7.4-10.4); MONOCYTES # (AUTO) 0.1 X 10^3 (0.0-1.0); MONOCYTES % (AUTO) 7 % (0-12); NEUTROPHILS # (AUTO) 0.8 X 10^3 (1.8-7.8); NEUTROPHILS % (AUTO) 49 % (42-75); PLATELET COUNT 198 10^3/uL (130-400); WHITE BLOOD COUNT 1.6 10^3/uL (4.3-11.0)
[2020-01-07 14:14] LABS: BASOPHILS # (AUTO) 0.1 10^3/uL (0.0-0.1); BASOPHILS % (AUTO) 3 % (0-10); EOSINOPHILS # (AUTO) 0.3 10^3/uL (0.0-0.3); EOSINOPHILS % (AUTO) 10 % (0-10); HEMATOCRIT 36 % (35-52); HEMOGLOBIN 11.9 G/DL (11.5-16.0); LYMPHOCYTES # (AUTO) 0.8 X 10^3 (1.0-4.0); LYMPHOCYTES % (AUTO) 28 % (12-44); MEAN CORPUSCULAR HEMOGLOBIN 32 PG (25-34); MEAN CORPUSCULAR HGB CONC 34 G/DL (32-36); MEAN CORPUSCULAR VOLUME 95 FL (80-99); MEAN PLATELET VOLUME 10.4 FL (7.4-10.4); MONOCYTES # (AUTO) 0.3 X 10^3 (0.0-1.0); MONOCYTES % (AUTO) 11 % (0-12); NEUTROPHILS # (AUTO) 1.3 X 10^3 (1.8-7.8); NEUTROPHILS % (AUTO) 47 % (42-75); PLATELET COUNT 199 10^3/uL (130-400); RED CELL DISTRIBUTION WIDTH 14.9 % (10.0-14.5); WHITE BLOOD COUNT 2.7 10^3/uL (4.3-11.0)
== END 2020-02-01 09:45 | disposition home or self-care (01) ==
LOC: ONC 13:42
PROVIDERS: ATTEND Internal Medicine Hematology & Oncology
DX: C50.212 Malignant neoplasm of upper-inner quadrant of left female breast (principal); C79.51 Secondary malignant neoplasm of bone; G89.3 Neoplasm related pain (acute) (chronic); R35.0 Frequency of micturition; D70.9 Neutropenia, unspecified; Z79.811 Long term (current) use of aromatase inhibitors; Z17.0 Estrogen receptor positive status [ER+]; Z79.899 Other long term (current) drug therapy
CPT/HCPCS: 85025; 96372; G0463

== ENCOUNTER 2020-03-05 14:51 | Outpatient (RCR) | payer MEDICARE ==
[2020-02-05 15:49] LABS: BASOPHILS # (AUTO) 0.1 10^3/uL (0.0-0.1); BASOPHILS % (AUTO) 2 % (0-10); EOSINOPHILS # (AUTO) 0.2 10^3/uL (0.0-0.3); EOSINOPHILS % (AUTO) 9 % (0-10); HEMATOCRIT 34 % (35-52); HEMOGLOBIN 11.4 G/DL (11.5-16.0); LYMPHOCYTES # (AUTO) 0.9 X 10^3 (1.0-4.0); LYMPHOCYTES % (AUTO) 37 % (12-44); MEAN CORPUSCULAR HEMOGLOBIN 32 PG (25-34); MEAN CORPUSCULAR HGB CONC 34 G/DL (32-36); MEAN CORPUSCULAR VOLUME 96 FL (80-99); MEAN PLATELET VOLUME 10.5 FL (7.4-10.4); MONOCYTES # (AUTO) 0.2 X 10^3 (0.0-1.0); MONOCYTES % (AUTO) 9 % (0-12); NEUTROPHILS % (AUTO) 43 % (42-75); PLATELET COUNT 266 10^3/uL (130-400); RED CELL DISTRIBUTION WIDTH 14.9 % (10.0-14.5); WHITE BLOOD COUNT 2.4 10^3/uL (4.3-11.0)
[2020-02-05 16:02] LABS: ALBUMIN 4.2 GM/DL (3.2-4.5); BILIRUBIN,TOTAL 0.3 MG/DL (0.1-1.0); CALCIUM 9.8 MG/DL (8.5-10.1); CREATININE SERUM 0.9 MG/DL (0.60-1.30); TOTAL PROTEIN 7.3 GM/DL (6.4-8.2)
[2020-03-05 15:03] LABS: BASOPHILS # (AUTO) 0.1 10^3/uL (0.0-0.1); BASOPHILS % (AUTO) 3 % (0-10); EOSINOPHILS # (AUTO) 0.2 10^3/uL (0.0-0.3); EOSINOPHILS % (AUTO) 5 % (0-10); HEMATOCRIT 35 % (35-52); HEMOGLOBIN 11.8 G/DL (11.5-16.0); LYMPHOCYTES # (AUTO) 0.9 X 10^3 (1.0-4.0); LYMPHOCYTES % (AUTO) 30 % (12-44); MEAN CORPUSCULAR HEMOGLOBIN 32 PG (25-34); MEAN CORPUSCULAR HGB CONC 34 G/DL (32-36); MEAN CORPUSCULAR VOLUME 95 FL (80-99); MEAN PLATELET VOLUME 10.2 FL (7.4-10.4); MONOCYTES # (AUTO) 0.4 X 10^3 (0.0-1.0); MONOCYTES % (AUTO) 14 % (0-12); NEUTROPHILS # (AUTO) 1.4 X 10^3 (1.8-7.8); NEUTROPHILS % (AUTO) 48 % (42-75); PLATELET COUNT 217 10^3/uL (130-400); RED CELL DISTRIBUTION WIDTH 14.7 % (10.0-14.5); WHITE BLOOD COUNT 2.9 10^3/uL (4.3-11.0)
[2020-03-05 15:22] LABS: ALBUMIN 4.2 GM/DL (3.2-4.5); BILIRUBIN,TOTAL 0.4 MG/DL (0.1-1.0); CREATININE SERUM 0.91 MG/DL (0.60-1.30); POTASSIUM 3.9 MMOL/L (3.6-5.0); TOTAL PROTEIN 7.1 GM/DL (6.4-8.2)
== END 2020-04-01 15:13 | disposition home or self-care (01) ==
LOC: ONC 14:51
PROVIDERS: ATTEND Internal Medicine Hematology & Oncology
DX: C50.212 Malignant neoplasm of upper-inner quadrant of left female breast (principal); C79.51 Secondary malignant neoplasm of bone; G89.3 Neoplasm related pain (acute) (chronic); R35.0 Frequency of micturition; D70.9 Neutropenia, unspecified; Z79.811 Long term (current) use of aromatase inhibitors; Z17.0 Estrogen receptor positive status [ER+]; Z79.899 Other long term (current) drug therapy
CPT/HCPCS: 80053; 85025; 86300; 96372; G0463; 82306

== ENCOUNTER 2020-05-01 15:54 | Outpatient (RCR) | payer MEDICARE ==
[2020-04-02 16:03] LABS: BASOPHILS # (AUTO) 0.1 10^3/uL (0.0-0.1); BASOPHILS % (AUTO) 4 % (0-10); EOSINOPHILS # (AUTO) 0.2 10^3/uL (0.0-0.3); EOSINOPHILS % (AUTO) 8 % (0-10); HEMATOCRIT 35 % (35-52); HEMOGLOBIN 11.8 G/DL (11.5-16.0); LYMPHOCYTES # (AUTO) 0.9 X 10^3 (1.0-4.0); LYMPHOCYTES % (AUTO) 32 % (12-44); MEAN CORPUSCULAR HEMOGLOBIN 32 PG (25-34); MEAN CORPUSCULAR HGB CONC 34 G/DL (32-36); MEAN CORPUSCULAR VOLUME 96 FL (80-99); MEAN PLATELET VOLUME 10.4 FL (7.4-10.4); MONOCYTES # (AUTO) 0.2 X 10^3 (0.0-1.0); MONOCYTES % (AUTO) 6 % (0-12); NEUTROPHILS # (AUTO) 1.5 X 10^3 (1.8-7.8); NEUTROPHILS % (AUTO) 50 % (42-75); PLATELET COUNT 266 10^3/uL (130-400); WHITE BLOOD COUNT 2.9 10^3/uL (4.3-11.0)
[2020-04-02 16:28] LABS: ALANINE AMINOTRANSFERASE 9 U/L (0-55); ALBUMIN 4.1 GM/DL (3.2-4.5); ALKALINE PHOSPHATASE 50 U/L (40-136); BILIRUBIN,TOTAL 0.2 MG/DL (0.1-1.0); BUN/CREATININE RATIO 15; CALCIUM 9.7 MG/DL (8.5-10.1); CARBON DIOXIDE 24 MMOL/L (21-32); CHLORIDE 107 MMOL/L (98-107); CREATININE SERUM 0.89 MG/DL (0.60-1.30); GFR ESTIMATED > 60; GLUCOSE 108 MG/DL (70-105); POTASSIUM 4.2 MMOL/L (3.6-5.0); SODIUM 140 MMOL/L (135-145); TOTAL PROTEIN 7.1 GM/DL (6.4-8.2)
[2020-05-01 16:05] LABS: BASOPHILS # (AUTO) 0.1 10^3/uL (0.0-0.1); BASOPHILS % (AUTO) 3 % (0-10); EOSINOPHILS # (AUTO) 0.2 10^3/uL (0.0-0.3); EOSINOPHILS % (AUTO) 8 % (0-10); HEMATOCRIT 33 % (35-52); HEMOGLOBIN 11.2 G/DL (11.5-16.0); LYMPHOCYTES # (AUTO) 0.8 X 10^3 (1.0-4.0); LYMPHOCYTES % (AUTO) 33 % (12-44); MEAN CORPUSCULAR HEMOGLOBIN 32 PG (25-34); MEAN CORPUSCULAR HGB CONC 34 G/DL (32-36); MEAN CORPUSCULAR VOLUME 96 FL (80-99); MEAN PLATELET VOLUME 10.4 FL (7.4-10.4); MONOCYTES # (AUTO) 0.2 X 10^3 (0.0-1.0); MONOCYTES % (AUTO) 9 % (0-12); NEUTROPHILS # (AUTO) 1.1 X 10^3 (1.8-7.8); NEUTROPHILS % (AUTO) 47 % (42-75); PLATELET COUNT 257 10^3/uL (130-400); WHITE BLOOD COUNT 2.4 10^3/uL (4.3-11.0)
== END 2020-05-16 08:23 | disposition home or self-care (01) ==
LOC: ONC 15:54
PROVIDERS: ATTEND Internal Medicine Hematology & Oncology
DX: C50.212 Malignant neoplasm of upper-inner quadrant of left female breast (principal); C79.51 Secondary malignant neoplasm of bone; G89.3 Neoplasm related pain (acute) (chronic); R35.0 Frequency of micturition; D70.9 Neutropenia, unspecified; Z79.811 Long term (current) use of aromatase inhibitors; Z17.0 Estrogen receptor positive status [ER+]; Z79.899 Other long term (current) drug therapy
CPT/HCPCS: 80053; 82306; 85025; 96372; G0463

== ENCOUNTER 2020-07-07 17:07 | Observation (INO) | payer MEDICARE ==
[~2020-07-07] VITALS: Ht 165.1 cm; Wt 62.0 kg
[~2020-07-07 17:07] MED LIST changes: -DENOSUMAB 120 MG/1.7 ML (XGEVA) SQ SCH
--- NOTE | 2020-07-07 17:19 | ED General ---
General Chief Complaint: Fever-Adult/Adol Stated Complaint: FEVER History of Present Illness Date Seen by Provider: Jul 07, 2020 Time Seen by Provider: 17:19 Initial Comments 79-year-old female presents with fever that started today. Patient's only other complaint is some mild nausea. She denies any cough, shortness of breath, loss of sense of taste or smell, urinary symptoms. Patient is on oral chemotherapy due to breast cancer with bone metastasis. Patient did not have any shortness of breath. Her fever was 100.3 upon arrival to the ER which is why she reports it was at home. (YANETH KELLY DO) Allergies and Home Medications Allergies Coded Allergies: No Known Drug Allergies (Unverified , 11/30/18) Home Medications Cefdinir 300 Mg Capsule, 300 MG PO twice a day Prescribed by: JANNET CHAN on 01/10/19 172 Letrozole 2.5 Mg Tablet, 2.5 MG PO DAILY, (Reported) Ondansetron HCl 8 Mg Tablet, 8 MG PO Q8H PRN for NAUSEA/VOMITING-1ST LINE, (Reported) Oxycodone HCl 10 Mg Tablet, 10 MG PO Q4H PRN for PAIN-SEVERE, (Reported) Palbociclib 125 Mg Capsule, 125 MG PO UD, (Reported) TAKES 1 CAPSULES WITH NOON MEAL DAILY FOR 3 WEEKS THEN OFF 1 WEEK THEN REPEAT Patient Home Medication List Home Medication List Reviewed: Yes (YANETH KELLY DO) Review of Systems Review of Systems Constitutional: fever EENTM: no symptoms reported Respiratory: No cough, No short of breath Cardiovascular: No chest pain, No palpitations Gastrointestinal: No abdominal pain, No constipation, No diarrhea; nausea; No vomiting Genitourinary: no symptoms reported Musculoskeletal: no symptoms reported Skin: no symptoms reported Psychiatric/Neurological: No Symptoms Reported Hematologic/Lymphatic: No Symptoms Reported Immunological/Allergic: no symptoms reported (YANETH KELLY DO) Past Uxdljby-Koscvg-Pjeldw Hx Past Med/Social Hx: Reviewed Nursing Past Med/Soc Hx (YANETH KELLY DO) Patient Social History 2nd Hand Smoke Exposure: No Recent Hopitalizations: No (YANETH KELLY DO) Alcohol Use: Denies Use Recreational Drug Use: No (SANCHO MORE) Seasonal Allergies Seasonal Allergies: No (YANETH KELLY DO) Past Medical History Surgeries: Yes (LEFT BREAST BIOPSY 10/2018) Breast Respiratory: No Cardiac: No Neurological: No Genitourinary: No Gastrointestinal: Yes Musculoskeletal: Yes (BACK PAIN--FROM BONE METS) Endocrine: No HEENT: No Cancer: Yes Breast Did You Recieve Any Treatments: Yes What Type of Treatment Did You: Chemotherapy, Radiation Psychosocial: No Integumentary: No Blood Disorders: No (YANETH KELLY DO) Family Medical History Cardiovascular disease 19 FATHER Completed stroke 19 MOTHER Heart Disease, Stroke (YANETH KELLY DO) Physical Exam Vital Signs Vital Signs - First Documented 07/07/20 07/08/20 17:09 01:17 Temp 37.9 Pulse 60 Resp 18 B/P (MAP) 182/69 (106) Pulse Ox 97 O2 Delivery Room Air FiO2 21 (SANCHO MORE) Vital Signs Capillary Refill : (YANETH KELLY DO) Height, Weight, BMI Height: 5'5.00" Weight: 136lbs. 4.0oz. 61.601155wu; 22.7 BMI Method:Stated General Appearance: No Apparent Distress, WD/WN, Other (febrile) HEENT: PERRL/EOMI, Moist Mucous Membranes Neck: Non Tender, Supple Respiratory: Lungs Clear, Normal Breath Sounds Cardiovascular: Regular Rate, Rhythm, No Edema Gastrointestinal: Non Tender, Soft Extremity: Normal Capillary Refill, Normal Inspection Neurologic/Psychiatric: Alert, Oriented x3, Normal Mood/Affect, wire insulator II-XII Norm as Tested Skin: Normal Color, Warm/Dry (YANETH KELLY DO) Focused Exam Sepsis Stage: Sepsis Possible Source: Pulmonary Lactate Level 07/07/20 17:30: Lactic Acid Level 0.85 (SANCHO MORE) Time of Focused Exam: 19:00 Respiratory: Normal Breath Sounds, No Accessory Muscle Use Cardiovascular: Regular Rate, Rhythm, No Edema, Normal Peripheral Pulses Capillary Refill: Less Than 3 Seconds Peripheral Pulses: 2+ Radial Pulses (R), 2+ Radial Pulses (L) Skin: normal color, warm/dry Lactic Acid Level (SANCHO MORE) Within 3hrs of presentation: Admin fluids, Admin ABX, Blood cultures prior to ABX's, Focus exam, Lactate level (SANCHO MORE) Progress/Results/Core Measures Suspected Sepsis SIRS Temperature: Pulse: Respiratory Rate: Blood Pressure / Mean: (KELLY,YANETH L DO) Results/Orders Lab Results Laboratory Tests Test 07/07/20 17:30 07/07/20 19:19 07/08/20 05:23 Range/Units White Blood Count 2.5 L 2.2 L 4.3-11.0 10^3/uL Red Blood Count 3.34 L 3.31 L 3.80-5.11 10^6/uL Hemoglobin 11.0 L 10.6 L 11.5-16.0 g/dL Hematocrit 32 L 32 L 35-52 % Mean Corpuscular Volume 97 97 80-99 fL Mean Corpuscular Hemoglobin 33 32 25-34 pg Mean Corpuscular Hemoglobin Concent 34 33 32-36 g/dL Red Cell Distribution Width 14.0 13.9 10.0-14.5 % Platelet Count 180 175 130-400 10^3/uL Mean Platelet Volume 10.9 10.7 9.0-12.2 fL Immature Granulocyte % (Auto) 0 1 % Neutrophils (%) (Auto) 68 54 42-75 % Lymphocytes (%) (Auto) 11 L 21 12-44 % Monocytes (%) (Auto) 15 H 22 H 0-12 % Eosinophils (%) (Auto) 3 1 0-10 % Basophils (%) (Auto) 2 1 0-10 % Neutrophils # (Auto) 1.7 L 1.2 L 1.8-7.8 10^3/uL Lymphocytes # (Auto) 0.3 L 0.5 L 1.0-4.0 10^3/uL Monocytes # (Auto) 0.4 0.5 0.0-1.0 10^3/uL Eosinophils # (Auto) 0.1 0.0 0.0-0.3 10^3/uL Basophils # (Auto) 0.1 0.0 0.0-0.1 10^3/uL Immature Granulocyte # (Auto) 0.0 0.0 0.0-0.1 10^3/uL Sodium Level 138 140 135-145 MMOL/L Potassium Level 4.0 3.6 3.6-5.0 MMOL/L Chloride Level 105 107 98-107 MMOL/L Carbon Dioxide Level 21 22 21-32 MMOL/L Anion Gap 12 11 5-14 MMOL/L Blood Urea Nitrogen 19 H 13 7-18 MG/DL Creatinine 0.77 0.73 0.60-1.30 MG/DL Estimat Glomerular Filtration Rate > 60 > 60 BUN/Creatinine Ratio 25 18 Glucose Level 106 H 98 70-105 MG/DL Lactic Acid Level 0.85 0.50-2.00 MMOL/L Calcium Level 8.9 8.5 8.5-10.1 MG/DL Corrected Calcium 8.9 8.7 8.5-10.1 MG/DL Total Bilirubin 0.4 0.4 0.1-1.0 MG/DL Aspartate Amino Transf (AST/SGOT) 30 29 5-34 U/L Alanine Aminotransferase (ALT/SGPT) 16 17 0-55 U/L Alkaline Phosphatase 44 41 40-136 U/L C-Reactive Protein High Sensitivity 0.66 H 0.00-0.50 MG/DL Total Protein 6.8 6.4 6.4-8.2 GM/DL Albumin 4.0 3.8 3.2-4.5 GM/DL Procalcitonin 0.05 <0.10 NG/ML Coronavirus 2019 (JIMMY) Positive H Negative Urine Color YELLOW Urine Clarity CLEAR Urine pH 6.0 5-9 Urine Specific [place] 1.020 1.016-1.022 Urine Protein NEGATIVE NEGATIVE Urine Glucose (UA) NEGATIVE NEGATIVE Urine Ketones TRACE H NEGATIVE Urine Nitrite NEGATIVE NEGATIVE Urine Bilirubin NEGATIVE NEGATIVE Urine Urobilinogen 0.2 < = 1.0 MG/DL Urine Leukocyte Esterase NEGATIVE NEGATIVE Urine RBC (Auto) NEGATIVE NEGATIVE Urine RBC NONE /HPF Urine WBC 0-2 /HPF Urine Squamous Epithelial Cells 0-2 /HPF Urine Crystals PRESENT H /LPF Urine Amorphous Sediment RARE CATHERINE URATES H /LPF Urine Bacteria NEGATIVE /HPF Urine Casts NONE /LPF Urine Mucus NEGATIVE /LPF Urine Culture Indicated NO Neutrophils % (Manual) 60 % Lymphocytes % (Manual) 12 % Monocytes % (Manual) 25 % Basophils % (Manual) 1 % Band Neutrophils 1 % Blood Morphology Comment NORMAL (SANCHO MORE) Micro Results Microbiology 07/07/20 Influenza Types A,B Antigen (BETTY) - Final, Complete (SANCHO MORE) My Orders Orders - SANCHO MORE Cefepime Injection (Maxipime Injection) (07/07/20 19:00) Vancomycin Injection (Vancomycin Injecti (07/07/20 19:00) Vancomycin Injection (Vancomycin Injecti (07/07/20 20:00) Vancomycin Injection (Vancomycin Injecti (07/07/20 19:00) Ua Culture If Indicated (07/07/20 19:28) Urine Culture (07/07/20 19:28) Oxycodone Immediate Rel Tablet (Oxyir Ta (07/07/20 20:00) (SANCHO MORE) Vital Signs/I&O 07/07/20 07/07/20 07/07/20 07/07/20 20:16 20:30 21:00 21:06 Temp 37.5 38.2 38.2 Pulse 62 66 66 Resp 17 22 22 B/P (MAP) 155/53 (106) 173/74 (107) 173/74 Pulse Ox 98 97 97 97 O2 Delivery Room Air Room Air Room Air Room Air 07/07/20 07/07/20 07/07/20 07/08/20 21:22 21:52 23:28 01:17 Temp 38.2 36.8 36.8 37.9 Pulse 61 60 Resp 20 B/P (MAP) 164/71 (102) Pulse Ox 97 97 O2 Delivery Room Air FiO2 21 07/08/20 04:00 Temp 36.8 Pulse 55 Resp 20 B/P (MAP) 170/73 (105) Pulse Ox 96 O2 Delivery Room Air (SANCHO MORE) Vital Signs/I&O Capillary Refill : (YANETH KELLY DO) Progress Note : Time: 18:50 Progress Note I agree with above document a history and physical exam and has put out by Dr. Kelly. I feel that the infiltrate seen on chest x-ray could be due to her COVID- 19. Her vital signs are okay and she is not requiring oxygen however she has sepsis related to borderline neutropenia 1.7 absolute neutrophil count. Would plan to hold her on broad-spectrum antibiotics. The patient says she urinated before she came and get good information we may do a straight catheter. She received a liter of fluids from EMS on route and has some generalized weakness but she does not have any other evidence of bacterial infection we will hold off on giving her a full bolus of fluids as COVID-19 tends to fair worse with robust fluid. (SANCHO MORE) Diagnostic Imaging Diagonstic Imaging: Xray Plain Films/CT/US/NM/MRI: chest Comments [facility], [facility] [place], [place] NAME: OMAR HANNA [facility] REC#: [id number] PT STATUS: REG ER : 1940 PHYSICIAN: YANETH KELLY DO ADMIT DATE: 07/07/20/ER Draft Date of Exam:07/07/20 CHEST 1 VIEW, AP/PA ONLY INDICATION: Fever Frontal chest obtained at 0628 p.m. There is cardiomegaly. There is central vascular congestion with mild interstitial edema. There is some linear atelectatic change versus infiltrate in the left perihilar region. There is no pneumothorax or pleural fluid IMPRESSION: Cardiomegaly and central vascular congestion with mild interstitial edema. There is some mild infiltrate versus atelectasis in left perihilar region. There is no pneumothorax or pleural fluid. Dictated on workstation # [id number] Dict: 07/07/20 1837 Trans: 07/07/20 1840 [facility] [id number] Interpreted by: SOCRATES PORTILLO MD Electronically signed by: Reviewed: Reviewed by Me (SANCHO MORE) Departure Communication (Admissions) Time/Spoke to Admitting Phy: 18:55 Discussed the case with Dr. Myrick and she agrees with the recommendations from Dr. Cabrera. The antibiotics are in the room but they have not been started so were going to hold him. We'll get the urinalysis by straight catheter and if it looks like a UTI we will cover her with appropriate antibiotics. If it looks clean then we will did observe her overnight for her debility. At this time she does not have need for hospitalization related to COVID-19 just her physical debility. Time/Spoke to Consulting Phy: 18:56 Discussed the case with Dr. Cabrera and she typically does not treat febrile neutropenia's until they go below 1. We certainly have a source for her fever and symptoms in the COVID-19. We discussed not starting prophylactic antibiotics at this time but because she is debilitated we will observe her overnight. If she develops symptoms of a UTI on urinalysis then we would cover her appropriately with antibiotics. (SANCHO MORE) Impression Primary Impression: COVID-19 Additional Impressions: Sepsis Qualified Codes: A41.9 - Sepsis, unspecified organism Physical debility History of breast cancer in female Disposition: 09 ADMITTED INPATIENT Condition: Stable Admissions Decision to Admit Reason: Admit from ER (General) Decision to Admit/Date: Jul 07, 2020 Time/Decision to Admit Time: 18:45 (SANCHO MORE) Departure-Patient Inst. Referrals: EDWIN BEATTY MD (PCP/Family) Primary Care Physician YANETH KELLY DO Jul 07, 2020 17:19 SANCHO MORE Jul 07, 2020 18:50
[2020-07-07 17:55] LABS: BASOPHILS # (AUTO) 0.1 10^3/uL (0.0-0.1); BASOPHILS % (AUTO) 2 % (0-10); EOSINOPHILS # (AUTO) 0.1 10^3/uL (0.0-0.3); EOSINOPHILS % (AUTO) 3 % (0-10); HEMATOCRIT 32 % (35-52); LYMPHOCYTES # (AUTO) 0.3 10^3/uL (1.0-4.0); LYMPHOCYTES % (AUTO) 11 % (12-44); MEAN CORPUSCULAR HEMOGLOBIN 33 pg (25-34); MEAN CORPUSCULAR HGB CONC 34 g/dL (32-36); MEAN CORPUSCULAR VOLUME 97 fL (80-99); MEAN PLATELET VOLUME 10.9 fL (9.0-12.2); MONOCYTES # (AUTO) 0.4 10^3/uL (0.0-1.0); MONOCYTES % (AUTO) 15 % (0-12); NEUTROPHILS # (AUTO) 1.7 10^3/uL (1.8-7.8); NEUTROPHILS % (AUTO) 68 % (42-75); PLATELET COUNT 180 10^3/uL (130-400); WHITE BLOOD COUNT 2.5 10^3/uL (4.3-11.0)
[2020-07-07 18:05] LABS: CHLORIDE 105 MMOL/L (98-107); SODIUM 138 MMOL/L (135-145)
[2020-07-07 18:07] LABS: CALCIUM 8.9 MG/DL (8.5-10.1)
[2020-07-07 18:08] LABS: GLUCOSE 106 MG/DL (70-105); TOTAL PROTEIN 6.8 GM/DL (6.4-8.2)
[2020-07-07 18:09] LABS: CARBON DIOXIDE 21 MMOL/L (21-32)
[2020-07-07 18:10] LABS: BILIRUBIN,TOTAL 0.4 MG/DL (0.1-1.0)
[2020-07-07 18:11] LABS: ALKALINE PHOSPHATASE 44 U/L (40-136)
[2020-07-07 18:12] LABS: CREATININE SERUM 0.77 MG/DL (0.60-1.30); GFR ESTIMATED > 60
[2020-07-07 18:13] LABS: BUN/CREATININE RATIO 25
[2020-07-07 18:14] LABS: ALANINE AMINOTRANSFERASE 16 U/L (0-55)
--- NOTE | 2020-07-07 18:40 | Diagnostic Imaging Report ---
INDICATION: Fever Frontal chest obtained at 0628 p.m. There is cardiomegaly. There is central vascular congestion with mild interstitial edema. There is some linear atelectatic change versus infiltrate in the left perihilar region. There is no pneumothorax or pleural fluid IMPRESSION: Cardiomegaly and central vascular congestion with mild interstitial edema. There is some mild infiltrate versus atelectasis in left perihilar region. There is no pneumothorax or pleural fluid. Dictated by: Dictated on workstation # [id number]
[2020-07-07] MEDS ORDERED: VANCOMYCIN 1250 MG/NS 250 ML IVPB IV NR ×2 (19:00)
[2020-07-07] MEDS ORDERED: CEFEPIME INJECTION 1,000 MG in WATER (STERILE) FOR INJECTION 10 ML IV ONE (19:00)
[2020-07-07] MEDS ORDERED: VANCOMYCIN INJECTION 750 MG in NS (IVPB) 100 ML IV ONE (19:00)
[2020-07-07 19:33] LABS: BILIRUBIN,URINE NEGATIVE (NEGATIVE); CLARITY,URINE CLEAR; COLOR,URINE YELLOW; GLUCOSE, URINE (UA) NEGATIVE (NEGATIVE); KETONES,URINE TRACE (NEGATIVE); LEUKOCYTE ESTERASE ,URINE NEGATIVE (NEGATIVE); NITRITE,URINE NEGATIVE (NEGATIVE); PROTEIN,URINE NEGATIVE (NEGATIVE)
[2020-07-07 19:41] LABS: BACTERIA,URINE NEGATIVE /HPF; SQUAMOUS EPITHELIAL CELL,UR 0-2 /HPF; WBC,URINE 0-2 /HPF
[2020-07-07 19:42] LABS: AMORPHOUS SEDIMENT,UR RARE AMOR URATES /LPF
[2020-07-07] MEDS ORDERED: VANCOMYCIN INJECTION 500 MG in NS (IVPB) 100 ML IV ONE (20:00)
[2020-07-07] MEDS ORDERED: IBUPROFEN 600 MG (MOTRIN) TAB PO PRN (20:30)
[2020-07-07] MEDS ORDERED: PROMETHAZINE 25 MG (PHENERGAN) TAB PO PRN (20:30)
[2020-07-07] MEDS ORDERED: CATHETER FLUSH 10 ML SYR IV PRN (20:30)
[2020-07-07] MEDS ORDERED: ACETAMINOPHEN 325 MG TABLET PO PRN (20:30)
[2020-07-07] MEDS ORDERED: ONDANSETRON 4 MG/2 ML (SDV) Z0FRAN IV PRN (20:30)
[2020-07-07] MEDS ORDERED: PROMETHAZINE INJ 25 MG/ML (PHENERGAN) AMP IV PRN (20:30)
--- NOTE | 2020-07-07 20:30 | NUR ---
OMAR HANNA admitted to room 432-1, with an admitting diagnosis of COVID 19/NEUTROPENIC FEVER/SEPSIS/PHYSICAL DEBILITY, on 07/07/20 from ED via , accompanied by STAFF. OMAR HANNA introduced to surroundings, call light, bed controls, phone, TV, temperature control, lights, meal times, smoking policy, visitor policy, side rail policy, bathrooms and showers. Patient Rights given to patient in the handbook.OMAR HANNA verbalizes understanding that [facility] is not responsible for the loss or damage to any personal effects or valuables that are kept in the patients possession during their hospitalization.
[2020-07-07] MEDS: LACTATED RINGERS 1,000 ML IV SCH (20:41)
[2020-07-07 21:00] VITALS: BP 173/74
[2020-07-07 21:06] VITALS: BP 173/74
[2020-07-07 23:28] VITALS: BP_SYST 164; BP_SYST 173; BP_DIAS 71; BP_DIAS 74
[2020-07-08] VITALS (7 sets, daily range): BP systolic 148–182; BP diastolic 66–76
--- NOTE | 2020-07-08 01:21 | NUR ---
Albuterol 4 puffs PRN with SOA. Initiate 02 to keep sats greater than 90%. RT to reassess or reevaluate in 72 hours or as needed. Addendum: 07/08/20 at 0137 by GISELA HAZEL RT Amended: Links added.
[2020-07-08] MEDS ORDERED: RT-ALBUTEROL INHALER HFA (VENTOLIN HFA) 18 GM IH PRN (01:30)
[2020-07-08] MEDS: LACTATED RINGERS 1,000 ML IV SCH ×3 (03:19→11:47)
[2020-07-08 05:40] LABS: BASOPHILS % (AUTO) 1 % (0-10); EOSINOPHILS % (AUTO) 1 % (0-10); HEMATOCRIT 32 % (35-52); HEMOGLOBIN 10.6 g/dL (11.5-16.0); LYMPHOCYTES # (AUTO) 0.5 10^3/uL (1.0-4.0); LYMPHOCYTES % (AUTO) 21 % (12-44); MEAN CORPUSCULAR HEMOGLOBIN 32 pg (25-34); MEAN CORPUSCULAR HGB CONC 33 g/dL (32-36); MEAN CORPUSCULAR VOLUME 97 fL (80-99); MEAN PLATELET VOLUME 10.7 fL (9.0-12.2); MONOCYTES # (AUTO) 0.5 10^3/uL (0.0-1.0); MONOCYTES % (AUTO) 22 % (0-12); NEUTROPHILS # (AUTO) 1.2 10^3/uL (1.8-7.8); NEUTROPHILS % (AUTO) 54 % (42-75); PLATELET COUNT 175 10^3/uL (130-400); WHITE BLOOD COUNT 2.2 10^3/uL (4.3-11.0)
[2020-07-08 05:50] LABS: ALBUMIN 3.8 GM/DL (3.2-4.5)
[2020-07-08 05:51] LABS: CHLORIDE 107 MMOL/L (98-107); POTASSIUM 3.6 MMOL/L (3.6-5.0); SODIUM 140 MMOL/L (135-145)
[2020-07-08 05:52] LABS: CALCIUM 8.5 MG/DL (8.5-10.1)
[2020-07-08 05:53] LABS: GLUCOSE 98 MG/DL (70-105); TOTAL PROTEIN 6.4 GM/DL (6.4-8.2)
[2020-07-08 05:54] LABS: CARBON DIOXIDE 22 MMOL/L (21-32)
[2020-07-08 05:55] LABS: BILIRUBIN,TOTAL 0.4 MG/DL (0.1-1.0)
[2020-07-08 05:56] LABS: ALKALINE PHOSPHATASE 41 U/L (40-136)
[2020-07-08 05:57] LABS: CREATININE SERUM 0.73 MG/DL (0.60-1.30); GFR ESTIMATED > 60
[2020-07-08 05:58] LABS: BUN/CREATININE RATIO 18
[2020-07-08 05:59] LABS: ALANINE AMINOTRANSFERASE 17 U/L (0-55)
[2020-07-08 06:12] LABS: BAND NEUTROPHILS 1 %; BASOPHILS % (MANUAL) 1 %; LYMPHOCYTES % (MANUAL) 12 %; MONOCYTES % (MANUAL) 25 %; NEUTROPHILS % (MANUAL) 60 %; RBC MORPH NORMAL
--- NOTE | 2020-07-08 07:00 | NUR ---
DR. KAISER NOTIFIED OF DVT SCORE OF 11.
--- NOTE | 2020-07-08 08:14 | Diagnostic Imaging Report ---
EXAMINATION: Chest 1 view HISTORY: COVID positive, neutropenia, fever COMPARISON: Chest radiograph 07/07/2020 FINDINGS: Heart size and pulmonary vasculature are stable. Interval placement of a left subclavian central line with the tip projecting over the proximal SVC. Increasing coarse interstitial opacities throughout both lungs. No pleural effusion or pneumothorax. Degenerative changes of the thoracic spine. Osseous structures are otherwise intact. IMPRESSION: 1. Increasing interstitial opacities throughout both lungs compatible with pulmonary edema or atypical infection and history of COVID. 2. Left subclavian central line with the tip projecting over the proximal SVC. Report was faxed to Marcelo/RN Infection Control by last at 8:13am. Dictated by: Dictated on workstation # [id number]
--- NOTE | 2020-07-08 10:41 | History & Physical-Hospitalist ---
History of Present Illness HPI/Chief Complaint Pt is a 79yoCF with a PMH of metastatic breast cancer who presented to the ER due to fever. She states she had been feeling well until yesterday when she went to drink some cranberry juice and then got sick. She developed a fever of 101.9. She waited a while to see if it would get better but when she rechecked it it re mained high. She called her son her advised her to seek care in the ER. She was found to be febrile here as well and was tested for COVID and positive and admitted to obs. Overnight she stated that she was short of breath but believes it was due to not having her nightly Afrin. She reports feeling much better this morning since getting it. She is hopeful to be able to discharge home soon. We discussed the course of COVID19 and how patients tend to get worse around day 7- 10. She states she would rather be at home waiting than staying in the hospital for that long. She has a 93yo at home who can help take care of her and a son who lives locally. Source: patient Exam Limitations: no limitations Date Seen 07/08/20 Time Seen by a Provider: 10:36 Attending Physician Ankita Kaiser MD PCP Bridgette Blum MD Referring Physician Date of Admission Jul 07, 2020 at 18:50 Home Medications & Allergies Home Medications Reviewed patient Home Medication Reconciliation performed by pharmacy medication reconciliations psychiatric technician and/or nursing. Patients Allergies have been reviewed. Allergies Allergies Coded Allergies No Known Drug Allergies (Unverified11/30/18) Past Afmmjvl-Vyrmge-Qwxdlu Hx Past Med/Social Hx: Reviewed Nursing Past Med/Soc Hx Patient Social History Alcohol Use: Denies Use Recreational Drug Use: No Smoking Status: Never a Smoker 2nd Hand Smoke Exposure: No Recent Foreign Travel: No Contact w/other who traveled: No Recent Hopitalizations: No Recent Infectious Disease Expo: No Seasonal Allergies Seasonal Allergies: No Past Medical History Surgeries: Breast Cancer: Bone, Breast Did You Recieve Any Treatments: Yes What Type of Treatment Did You: Chemotherapy, Radiation History of Blood Disorders: No Family History Reviewed Nursing Family Hx Cardiovascular disease 19 FATHER Completed stroke 19 MOTHER Heart Disease, Stroke Review of Systems Constitutional: No chills; fever, weakness EENTM: nose congestion Respiratory: No cough; short of breath Cardiovascular: No chest pain, No edema Gastrointestinal: No abdominal pain; constipation (chronic), nausea; No vomiting Genitourinary: No dysuria, No frequency Musculoskeletal: no symptoms reported Skin: no symptoms reported Psychiatric/Neurological: No Symptoms Reported Physical Exam Physical Exam Vital Signs Vital Signs - First Documented 07/07/20 07/08/20 17:09 01:17 Temp 37.9 Pulse 60 Resp 18 B/P (MAP) 182/69 (106) Pulse Ox 97 O2 Delivery Room Air FiO2 21 Capillary Refill : Less Than 3 Seconds Height, Weight, BMI Height: 5'5.00" Weight: 136lbs. 4.0oz. 61.015559br; 22.74 BMI Method:Stated General Appearance: No Apparent Distress, Chronically ill, Thin HEENT: PERRL/EOMI, Moist Mucous Membranes; No Scleral Icterus (L), No Scleral Icterus (R) Respiratory: Lungs Clear, No Accessory Muscle Use, No Respiratory Distress Cardiovascular: Regular Rate, Rhythm, Systolic Murmur Gastrointestinal: Normal Bowel Sounds, Non Tender, Soft Extremity: Normal Capillary Refill, No Calf Tenderness, No Pedal Edema Neurologic/Psychiatric: Alert, Oriented x3, Normal Mood/Affect Skin: Normal Color, Warm/Dry Results Results/Procedures Labs Laboratory Tests 07/07/20 17:30 07/08/20 05:23 Patient resulted labs reviewed. Imaging: Reviewed Imaging Report Assessment/Plan Admission Diagnosis COVID19 Admission Status: Observation Assessment and Plan COVID19 Debility Not currently hypoxic, no indication for decadron or Remdesivir Was SOB overnight but attributes that to nasal congestion Afrin resumed Continue to monitor tonight Discussed with patient and son and they are agreeable to discharge home tomorrow if still doing well with close monitor throughout higher risk period next week Discussed with Dr Blum as well who follows her as an outpatient Metastatic Breast Cancer Chronic constipation neutropenia Continue home pain regimen Continue Miralax Dr Thomas consulted for mild neutropenia while on chemo- appears chronic and mild upon review of charts Await culture results DVT Ppx: Lovenox Diagnosis/Problems Diagnosis/Problems (1) Metastatic breast cancer Status: Chronic (2) DNR (do not resuscitate) Status: Acute (3) COVID-19 Status: Acute (4) Physical debility Status: Acute (5) Neutropenia Status: Acute Qualifiers: Neutropenia type: unspecified Qualified Codes: D70.9 - Neutropenia, unspecified Clinical Quality Measures DVT/VTE Risk/Contraindication: Risk Factor Score Per Nursin RFS Level Per Nursing on Admit: 4+=Very High ANKITA KAISER MD Jul 08, 2020 10:41
[2020-07-08] MEDS ORDERED: ENOXAPARIN 40 MG/0.4 ML (LOVENOX) SYR SQ SCH (11:15)
[2020-07-08] MEDS: polyethylene glycoL POWDER 17 GM (MIRALAX) PACK PO SCH (11:47)
--- NOTE | 2020-07-08 14:21 | NUR ---
Pt lives with her 93 year old and both have been independent. Pt is followed by for metastatic breast cancer. Couple has one son Soren who is employed radio time salesperson as a Nanny for family in [place]. Soren is the only child and primary caregiver for his parents as sets up their medications, performs laundry and housekeeping, and other task needing his assistance. Pt did sign DPOA paperwork giving Soren DPOA for Health Care in 2010 and copies were placed in chart and at the Cancer Center. Will follow.
[2020-07-08] MEDS ORDERED: ONDA8TAB15 PO ×2 (14:53)
[2020-07-08] MEDS ORDERED: POLY17PO6 PO (14:54)
--- NOTE | 2020-07-08 14:57 | Physical Therapy Evaluation ---
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 1-Ejmfjfruiz-kjufjef completes the activity by him/herself with no assistance from a helper. 5-Set-up or Clean-up Assistance-helper sets up or cleans up; patient completes activity. [place] assists only prior to or following the activity. 4-Supervision or Touching Assistance-helper provides verbal cues and/or touching/steadying and/or contact guard assistance as patient completes activity. Assistance may be provided throughout the activity or intermittently. 3-Partial/Moderate Assistance-helper does LESS THAN HALF the effort. [place] lifts, holds or supports trunk or limbs, but provides less than half the effort. 2-Substantial/Maximal Assistance-helper does MORE THAN HALF the effort. [place] lifts or holds trunk or limbs and provides more than half the effort. 2-Jlovtwxqs-paxspq does ALL the effort. Patient does none of the effort to complete the activity. Or, the assistance of 2 or more helpers is required for the patient to complete the activity. If activity was not attempted, code reason: 7-Patient Refused. 9-Not Applicable-not attempted and the patient did not perform the activity before the current illness, exacerbation or injury. 10-Not Attempted due to Environmental Limitations-(lack of equipment, weather restraints, etc.). 88-Not Attempted due to Medical Conditions or Safety Concerns. Bed Mobility: 6 Transfers (B,C,W/C): 6 Gait: 6 Indoor Mobility (Ambulation): Independent Prior Devices Use: None PT Evaluation-Current Subjective Patient agrees to PT. Objective Patient Orientation: Normal For Age ROM/Strength ROM Lower Extremities bilateral LE WFL Strength Lower Extremities 3+/5 grossly bilateral LE Integumentary/Posture Integumentary refer to nursing notes Bowel Incontinence: No Bladder Incontinence: No Posture kyphotic/scoliosis Neuromuscular (Tone, Coordination, Reflexes) grossly intact Sensory Vision: Functional Hearing: Functional Transfers Sit to Lying (QC): 6 Lying to Sitting/Side of Bed(Q: 6 Sit to Stand (QC): 5 Toilet Transfer (QC): 5 Gait Does the Patient Walk?: Yes Mode of Locomotion: Walk Anticipated Mode of Locomotion: Walk Walk 10 feet (QC): 5 Walk 50 ft with 2 Turns(QC): 5 Walk 150 ft (QC): 88 Gait Assistive Device: None Comments/Gait Description functional gait sequence (declined to use FWW and does not use one in home) Balance Sitting Static: Normal Sitting Dynamic: Normal Standing Static: Fair Standing Dynamic: Fair Assessment/Needs 79 y.o. female, is currently at [facility] with all gross motor skills and is up with nursing PRN, does not require skilled therapy intervention. Patient desires to return to home tomorrow per her report. Rehab Potential: Fair PT Plan Treatment/Plan Treatment Plan: Discontinue PT, goals met Treatment Duration: Jul 08, 2020 Frequency: 1 time per week Estimated Hrs Per Day: .25 hour per day Patient and/or Family Agrees t: Yes Discharge Recommendations Therapy Discharge Recommendati: Home & Family Time/GCodes Time In: 1415 Time Out: 1431 Total Billed Treatment Time: 16 Total Billed Treatment 1 visit EVMod 16 min SYLVIA ABRAMS PT Jul 08, 2020 14:57
[2020-07-08] MEDS ORDERED: DIPH25CA79 PO (15:04)
[2020-07-08] MEDS ORDERED: CHOL10002 PO (15:04)
--- NOTE | 2020-07-08 15:05 | NUR ---
SPOKE WITH THE PTS SON (TRESA) AND CALLED [facility] TO COMPLETE THE MED REC THE FOLLOWING ARE FILL DATES FROM [facility]: 05-29-2020 LETROZOLE 2.5MG #90/90DS 06-24-2020 ZOFRAN 8MG #35 07-08-2020 OXYCODONE 10MG #120 PT ALSO TAKES IBRANCE DAILY FOR 2 WEEKS THEN IF OFF FOR 1 WEEK, THEN REPEATS. PT GETS THIS FROM THE [employer] SUPERVISOR OTC MEDS: MIRALAX BENADRYL VIT D
--- NOTE | 2020-07-08 15:12 | Occupational Therapy Eval ---
OT Evaluation-General/PLF Medical Diagnosis Admission Date Jul 07, 2020 at 18:50 Medical Diagnosis: Covid +/Debility Onset Date: Jul 07, 2020 Therapy Diagnosis Therapy Diagnosis: Weakness Height/Weight Height (Feet): 5 Height (Inches): 5.00 Weight (Pounds): 136 Weight (Ounces): 4.0 Precautions Precautions/Isolations: Airborne Isolation, Contact Isolation, Droplet Isolation, Fall Prevention, Standard Precautions Referral Physician: Elen Referral Reason: Activity Tolerance, Self Care, Evaluation/Treatment, Strengthening/ROM Medical History Additional Medical History Chemotherapy, radiation, metastatic breast CA with bony mets. Current History Pt. positive with COVID-19. Reviewed History: Yes Social History Home: Single Level Current Living Status: Spouse Entry Into Home: Level Entry ADL-Prior Level of Function SCALE: Activities may be completed with or without assistive devices. 8-Rifhlkmwdx-ugogixz completes the activity by him/herself with no assistance from a helper. 5-Set-up or Clean-up Assistance-helper sets up or cleans up; patient completes activity. [place] assists only prior to or following the activity. 4-Supervision or Touching Assistance-helper provides verbal cues and/or touching/steadying and/or contact guard assistance as patient completes activity. Assistance may be provided throughout the activity or intermittently. 3-Partial/Moderate Assistance-helper does LESS THAN HALF the effort. [place] lifts, holds or supports trunk or limbs, but provides less than half the effort. 2-Substantial/Maximal Assistance-helper does MORE THAN HALF the effort. [place] lifts or holds trunk or limbs and provides more than half the effort. 0-Kviwlxvnp-gnjvsc does ALL the effort. Patient does none of the effort to complete the activity. Or, the assistance of 2 or more helpers is required for the patient to complete the activity. If activity was not attempted, code reason: 7-Patient Refused. 9-Not Applicable-not attempted and the patient did not perform the activity before the current illness, exacerbation or injury. 10-Not Attempted due to Environmental Limitations-(lack of equipment, weather restraints, etc.). 88-Not Attempted due to Medical Conditions or Safety Concerns. ADL PLOF Comments Pt. states that she is typically independent with daily tasks. She is able to dress self, with the exception of her left sock, and mainly sponge bathes. She states that occasionally she sits on the side of the tub and puts her feet in. Her spouse is 93 but is "in good health" and takes care of her per pt. She has a walker but doesn't use it around the house. Self Care: Independent (per pt.) Functional Cognition: Independent DME/Equipment: Tub/Shower DME/Equipment Comments Pt. has walkers but does not have a wheelchair. OT Current Status Subjective No pain reported. Pt. states that she was very ill yesterday, but is feeling much better today. Appearance Pt. in bed. Alert and oriented. Has just returned from toileting with PT. Mental Status/Objective Patient Orientation: Person, Place, Time, Situation Attachments: IV Current Upper Extremity ROM UE AROM is functional for pt. Due to kyphosis, she is limited at shoulders. ADL-Treatment Eating (QC): 6 (per pt. She states that she does not have much of an appetite, but is able to feed self.) Shower/Bathe Self (QC): 7 (Pt. declines sponge bath or shower stating, "I will when I get home.") On/Off Footwear (QC): 3 (Min assist to don over left big toe. Pt. able to don over the rest of foot, and right sock.) Other Treatments Pt. reports that she is feeling better and is in normal state of health. She states that she is really hoping to discharge tomorrow. She transferred supine- sit with independence and increased time. She stood at bedside independently, and took steps toward HOB. Pt. able to transfer self back into bed. She demonstrates kyphotic posture secondary to bony mets. All needs are met and pt. reports she is comfortable. Pt. with call light and table/phone. Encouraged to call for assistance when she needs it. Education OT Patient Education: Correct positioning, Modified ADL techniques, Progress toward Goal/Update tx plan, Purpose of tx/functional activities, Reviewed precautions, Rehab process, Transfer techniques Teaching Recipient: Patient Teaching Methods: Demonstration, Discussion Response to Teaching: Verbalize Understanding, Return Demonstration OT Air And Hydronic Balancing Technician Goals Usp Goals Time Frame: Jul 15, 2020 Oral Hygiene (QC): 6 Toileting Hygiene (QC): 6 Upper Body Dressing (QC): 5 Lower Body Dressing (QC): 5 On/Off Footwear (QC): 5 (with AE) Additional Goals: 1-Demonstrate ADL Tasks, 2-Verbalize Understanding, 3- ImproveStrength/Gabriel 1=Demonstrate adherence to instructed precautions during ADL tasks. 2=Patient will verbalize/demonstrate understanding of assistive devices/modifications for ADL. 3=Patient will improve strength/tolerance for activity to enable patient to perform ADL's. OT Education/Plan Problem List/Assessment Assessment: Decreased Activ Tolerance, Impaired I ADL's, Impaired Self-Care Skills Discharge Recommendations Plan/Recommendations: Continue POC Therapy Discharge Recommendati: Home & Family Treatment Plan/Plan of Care Treatment,Training & Education: Yes Patient would benefit from OT for education, treatment and training to promote independence in ADL's, mobility, safety and/or upper extremity function for ADL's. Plan of Care: ADL Retraining, Functional Mobility, UE Funct Exercise/Act Treatment Duration: Jul 15, 2020 Frequency: 5 times per week Estimated Hrs Per Day: .25 hour per day Agreement: Yes Rehab Potential: Fair Time/GCodes Start Time: 14:40 Stop Time: 15:00 Total Time Billed (hr/min): 20 Billed Treatment Time 1, EVM x 20minutes YANG BRAGA OT Jul 08, 2020 15:12
[2020-07-08] MEDS: RT-ALBUTEROL INHALER HFA (VENTOLIN HFA) 18 GM IH SCH (23:37)
[2020-07-09] VITALS: BP 181/74
[2020-07-09] MEDS: RT-ALBUTEROL INHALER HFA (VENTOLIN HFA) 18 GM IH SCH ×2 (03:25→09:38)
[2020-07-09 03:54] VITALS: BP 150/63
[2020-07-09 08:00] VITALS: BP 125/86
[2020-07-09] MEDS: polyethylene glycoL POWDER 17 GM (MIRALAX) PACK PO SCH (09:05)
--- NOTE | 2020-07-09 09:44 | Discharge Inst-Simple/Standard ---
Discharge Inst-Standard Patient Instructions/Follow Up Plan of Care/Instructions/FU: Please continue to take your medications as written. Please follow up with your primary care doctor to follow up this hospital stay. Activity as Tolerated: Yes Discharge Diet: No Restrictions Return to The Hospital For: Chest pain, fever, shortness of breath, oxygen saturations less than 90, weakness, if you feel you are getting worse. ANKITA KAISER MD Jul 09, 2020 09:44
--- NOTE | 2020-07-09 09:45 | Discharge Summary ---
Diagnosis/Chief Complaint Date of Admission Jul 07, 2020 at 18:50 Date of Discharge Discharge Date: Jul 09, 2020 Admission Diagnosis COVID19 Primary Care Edwin Beatty MD Discharge Diagnosis (1) Metastatic breast cancer Status: Chronic (2) DNR (do not resuscitate) Status: Acute (3) COVID-19 Status: Acute (4) Physical debility Status: Acute (5) Neutropenia Status: Acute Discharge Summary Discharge Physical Exam Allergies: Coded Allergies: No Known Drug Allergies (Unverified , 11/30/18) Vitals & I&Os Vital Signs Date Time Temp Pulse Resp B/P (MAP) Pulse Ox O2 Delivery O2 Flow Rate FiO2 07/09/20 10:49 35.8 69 18 125/86 99 Room Air 07/08/20 12:25 21 General Appearance: No Apparent Distress, Chronically ill Respiratory: Lungs Clear, No Respiratory Distress Cardiovascular: Regular Rate, Rhythm, No Murmur Neurologic/Psychiatric: Alert, Oriented x3 Hospital Course Pt was admitted due to debility from COVID19. She was only in the first couple of days of symptoms and responded well to fluids. She was did not require any oxygen supplementation so did not meet criteria for remdesivir, convalescent plasma, or decadron. She requested discharge home. I discussed the typical course of COVID19 with worsening around day 7-10 of symptoms with both her and her son who is the primary community board member. Plan was made to discharge home and monitor symptoms. Son has a pulse oximeter as well and instructions were given for monitoring levels at home. Both the patient and son were comfortable with this plan. She was discharged home in stable and improved condition. I called and updated her primary care, Dr Beatty to this plan as well. Labs (last 24 hrs) Microbiology 07/07/20 Urine Culture - Final, Complete NO GROWTH 07/07/20 Blood Culture - Preliminary, Resulted No growth 07/07/20 Influenza Types A,B Antigen (BETTY) - Final, Complete Patient resulted labs reviewed. Imaging: Reviewed Imaging Report Discussion & Recommendations Discharge Planning: >30 minutes discharge planning Discharge Home Medications: Active Scripts Active Reported Vitamin D3 (Cholecalciferol (Vitamin D3)) 25 Mcg Tablet 25 Mcg PO DAILY Benadryl (Diphenhydramine HCl) 25 Mg Capsule 50 Mg PO HS PRN Miralax (Polyethylene Glycol 3350) 17 Gm Powd.pack 17 Gm PO DAILY MIX WITH CRANBERRY JUICE Ondansetron HCl 8 Mg Tablet 8 Mg PO BID PRN Ondansetron HCl 8 Mg Tablet 8 Mg PO DAILY Ibrance (Palbociclib) 125 Mg Capsule 125 Mg PO UD TAKES 1 CAPSULES WITH NOON MEAL DAILY FOR 2 WEEKS THEN OFF 1 WEEK THEN REPEAT Letrozole 2.5 Mg Tablet 2.5 Mg PO DAILY Oxycodone HCl 10 Mg Tablet 10 Mg PO Q4H PRN Instructions to patient/family Please see electronic discharge instructions given to patient. Clinical Quality Measures DVT/VTE Risk/Contraindication: Risk Factor Score Per Nursin RFS Level Per Nursing on Admit: 4+=Very High Copy Copies To 1: EDWIN BEATTY MD Problem Qualifiers (1) Neutropenia: Neutropenia type: unspecified Qualified Codes: D70.9 - Neutropenia, unspecified ANKITA KAISER MD Jul 09, 2020 09:45
[2020-07-09] MEDS: LACTATED RINGERS 1,000 ML IV SCH (10:33)
--- NOTE | 2020-07-09 10:47 | NUR ---
THIS RN CALLED TRESA ( HER SON) INFORMED HIM OF ALL DISCHARGE ORDERS AND DRTammi APPOINTMENTS THAT ARE SCHEDULED. HE REPORTS THAT HE ( THE ) WILL BE HERE AROUND 11:00 A.M. AT THE EMERGENCY ROOM DOORS TO SPRAY GUN SIZER HIS MOTHER. THIS RN WILL CONT. TO MONITOR THIS PATIENT THROUGHOUT THE REMAINDER OF THIS SHIFT.
[2020-07-09 10:49] VITALS: BP 125/86
[2020-07-09] MEDS ORDERED: ENOXAPARIN 40 MG/0.4 ML (LOVENOX) SYR SQ SCH (11:00)
--- NOTE | 2020-07-09 12:40 | NUR ---
Dioscussed discharge needs with pt's son and DPOA for Health care. He has his mother 's medications set up as he always does and doesn't think there will be need for Home Health care. He's made arrangements for his father to transport his mother home as he has bee treated for the COVID virus also but doing well.
== END 2020-07-09 09:44 | disposition home or self-care (01) ==
LOC: EDUNIT# 17:07 → ER 17:08 → UNDOADMOB 18:50 → 4TH 18:50 → UNDODISOB 07-09 11:10
PROVIDERS: ADMIT Family Medicine; ATTEND Family Medicine
DX: U07.1 COVID-19 (principal); C79.81 Secondary malignant neoplasm of breast; D70.9 Neutropenia, unspecified; A41.9 Sepsis, unspecified organism; R53.81 Other malaise; Z85.830 Personal history of malignant neoplasm of bone; Z66 Do not resuscitate
CPT/HCPCS: 51702; 71045 ×2; 80053 ×2; 81000; 83605; 84145; 85007; 85025; 85027; 86141; 87040; 87088; 87804; 94640 ×2; 94760; 97162; 97166; 99284; G0378; U0002; 36415; 87635

== ENCOUNTER 2020-07-21 17:07 | Emergency (ER) | payer MEDICARE ==
[~2020-07-21 17:07] MED LIST changes: +CHOL10002 PO; +DIPH25CA79 PO; +ONDA8TAB15 PO; +POLY17PO6 PO
[2020-07-21] MEDS ORDERED: NS IV 500 ML 500 ML IV ONE (17:22)
--- NOTE | 2020-07-21 17:27 | ED Respiratory ---
General Chief Complaint: Abdominal/GI Problems Stated Complaint: DYSPNEA/COVID POSITIVE Source: patient, EMS Exam Limitations: no limitations (SANCHO MORE) History of Present Illness Date Seen by Provider: Jul 21, 2020 Time Seen by Provider: 17:06 Initial Comments Patient resents ER by EMS from home with chief complaint of intractable nausea vomiting starting today. She was diagnosed with COVID 19 2 weeks ago. She has had Tylenol at 11:00 this morning. She is not having any worsening shortness of air or cough now. She is here because she feels dehydrated. EMS started a liter of saline on route. 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 Cabrera. She is not on any blood thinners. She has no history of heart disease or lung disease. She is not a smoker. (SANCHO MORE) Allergies and Home Medications Allergies Coded Allergies: No Known Drug Allergies (Unverified , 11/30/18) Home Medications Cefuroxime Axetil 250 Mg Tablet, 250 MG PO BID Prescribed by: JOSE ALFREDO OWEN on 07/21/202013 Cholecalciferol (Vitamin D3) 25 Mcg Tablet, 25 MCG PO DAILY, (Reported) Diphenhydramine HCl 25 Mg Capsule, 50 MG PO HS PRN for ALLERGY SYMPTOMS, (Re ported) Letrozole 2.5 Mg Tablet, 2.5 MG PO DAILY, (Reported) Ondansetron HCl 8 Mg Tablet, 8 MG PO DAILY, (Reported) Ondansetron HCl 8 Mg Tablet, 8 MG PO BID PRN for NAUSEA/VOMITING-1ST LINE, (Reported) Oxycodone HCl 10 Mg Tablet, 10 MG PO Q4H PRN for PAIN-SEVERE, (Reported) Palbociclib 125 Mg Capsule, 125 MG PO UD, (Reported) TAKES 1 CAPSULES WITH NOON MEAL DAILY FOR 2 WEEKS THEN OFF 1 WEEK THEN REPEAT Polyethylene Glycol 3350 17 Gm Powd.pack, 17 GM PO DAILY, (Reported) MIX WITH CRANBERRY JUICE Patient Home Medication List Home Medication List Reviewed: Yes (SANCHO MORE) Review of Systems Review of Systems Constitutional: No chills, No fever; malaise EENTM: No ear discharge, No ear pain Respiratory: No cough, No short of breath Cardiovascular: No Hx of Intervention, No palpitations Gastrointestinal: No abdominal pain, No constipation, No diarrhea; loss of appetite, nausea, vomiting Genitourinary: No decreased output, No discharge; dysuria : No Musculoskeletal: No back pain, No joint pain Skin: No pruritus, No rash (SANCHO MORE) All Other Systems Reviewed Negative Unless Noted: Yes (SANCHO MORE) Past Vomnwrw-Egghca-Bieexo Hx Patient Social History Alcohol Use: Denies Use Recreational Drug Use: No Smoking Status: Never a Smoker 2nd Hand Smoke Exposure: No Recent Foreign Travel: No Contact w/Someone Who Travel: No Recent Hopitalizations: No (SANCHO MORE) Seasonal Allergies Seasonal Allergies: No (SANCHO MORE) Past Medical History Surgeries: Yes (LEFT BREAST BIOPSY 10/2018) Breast Respiratory: No Cardiac: No Neurological: No Genitourinary: No Gastrointestinal: Yes Musculoskeletal: Yes (BACK PAIN--FROM BONE METS) Endocrine: No HEENT: No Cancer: Yes Bone, Breast Did You Recieve Any Treatments: Yes What Type of Treatment Did You: Chemotherapy, Radiation Psychosocial: No Integumentary: No Blood Disorders: No (SANCHO MORE) Family Medical History Cardiovascular disease 19 FATHER Completed stroke 19 MOTHER Heart Disease, Stroke (SANCHO MORE) Physical Exam Vital Signs - First Documented 07/21/20 17:10 Temp 38.2 Pulse 76 Resp 16 B/P (MAP) 191/76 (114) Pulse Ox 96 O2 Delivery Room Air (JOSE ALFREDO OWEN APRN) Capillary Refill : (SANCHO MORE) Height: 5'5.00" Weight: 136lbs. 4.0oz. 61.449107tr; 22.74 BMI Method:Stated General Appearance: WD/WN, mild distress Eyes: Bilateral Eye Normal Inspection, Bilateral Eye PERRL, Bilateral Eye EOMI HEENT: PERRL/EOMI, normal ENT inspection, TMs normal; No pharynx normal (erickson pharynx is mildly dry) Neck: full range of motion, supple, normal inspection Respiratory: lungs clear, normal breath sounds, no respiratory distress, no accessory muscle use Cardiovascular: normal peripheral pulses, regular rate, rhythm Gastrointestinal: normal bowel sounds, non tender, soft, no organomegaly Extremities: normal inspection, normal capillary refill Neurologic/Psychiatric: no motor/sensory deficits, alert, normal mood/affect, oriented x 3 Skin: normal color, warm/dry (SANCHO MORE) Progress/Results/Core Measures Suspected Sepsis SIRS Temperature: Pulse: Respiratory Rate: Laboratory Tests 07/21/20 17:25: White Blood Count 8.6 Blood Pressure / Mean: Laboratory Tests 07/21/20 17:25: Creatinine 0.77, Platelet Count 339, Total Bilirubin 0.5 (SANCHO MORE) Results/Orders Lab Results Laboratory Tests Test 07/21/20 17:25 07/21/20 19:30 07/21/20 20:08 Range/Units White Blood Count 8.6 4.3-11.0 10^3/uL Red Blood Count 3.47 L 3.80-5.11 10^6/uL Hemoglobin 10.9 L 11.5-16.0 g/dL Hematocrit 33 L 35-52 % Mean Corpuscular Volume 96 80-99 fL Mean Corpuscular Hemoglobin 31 25-34 pg Mean Corpuscular Hemoglobin Concent 33 32-36 g/dL Red Cell Distribution Width 13.8 10.0-14.5 % Platelet Count 339 130-400 10^3/uL Mean Platelet Volume 11.2 9.0-12.2 fL Immature Granulocyte % (Auto) 1 % Neutrophils (%) (Auto) 88 H 42-75 % Lymphocytes (%) (Auto) 6 L 12-44 % Monocytes (%) (Auto) 5 0-12 % Eosinophils (%) (Auto) 0 0-10 % Basophils (%) (Auto) 0 0-10 % Neutrophils # (Auto) 7.6 1.8-7.8 10^3/uL Lymphocytes # (Auto) 0.5 L 1.0-4.0 10^3/uL Monocytes # (Auto) 0.4 0.0-1.0 10^3/uL Eosinophils # (Auto) 0.0 0.0-0.3 10^3/uL Basophils # (Auto) 0.0 0.0-0.1 10^3/uL Immature Granulocyte # (Auto) 0.1 0.0-0.1 10^3/uL Neutrophils % (Manual) 88 % Lymphocytes % (Manual) 7 % Monocytes % (Manual) 5 % Blood Morphology Comment NORMAL D-Dimer 1.68 H 0.00-0.49 UG/ML Sodium Level 138 135-145 MMOL/L Potassium Level 3.7 3.6-5.0 MMOL/L Chloride Level 101 98-107 MMOL/L Carbon Dioxide Level 25 21-32 MMOL/L Anion Gap 12 5-14 MMOL/L Blood Urea Nitrogen 14 7-18 MG/DL Creatinine 0.77 0.60-1.30 MG/DL Estimat Glomerular Filtration Rate > 60 BUN/Creatinine Ratio 18 Glucose Level 117 H 70-105 MG/DL Calcium Level 8.4 L 8.5-10.1 MG/DL Corrected Calcium 8.7 8.5-10.1 MG/DL Total Bilirubin 0.5 0.1-1.0 MG/DL Aspartate Amino Transf (AST/SGOT) 30 5-34 U/L Alanine Aminotransferase (ALT/SGPT) 21 0-55 U/L Alkaline Phosphatase 55 40-136 U/L C-Reactive Protein High Sensitivity 22.10 H 0.00-0.50 MG/DL Total Protein 6.8 6.4-8.2 GM/DL Albumin 3.6 3.2-4.5 GM/DL Procalcitonin 0.32 H <0.10 NG/ML Urine Color YELLOW Urine Clarity CLEAR Urine pH 7.0 5-9 Urine Specific [place] 1.010 L 1.016-1.022 Urine Protein 1+ H NEGATIVE Urine Glucose (UA) NEGATIVE NEGATIVE Urine Ketones 1+ H NEGATIVE Urine Nitrite POSITIVE H NEGATIVE Urine Bilirubin NEGATIVE NEGATIVE Urine Urobilinogen 0.2 < = 1.0 MG/DL Urine Leukocyte Esterase 2+ H NEGATIVE Urine RBC (Auto) 1+ H NEGATIVE Urine RBC 2-5 H /HPF Urine WBC 50-100 H /HPF Urine Crystals NONE /LPF Urine Bacteria LARGE H /HPF Urine Casts NONE /LPF Urine Mucus NEGATIVE /LPF Urine Culture Indicated YES Coronavirus 2019 (JIMMY) Negative Negative (JOSE ALFREDO OWEN APRN) Micro Results Microbiology 07/21/20 Influenza Types A,B Antigen (BETTY) - Final, Complete (JOSE ALFREDO OWEN APRN) My Orders Orders - JOSE ALFREDO OWEN APRN Ceftriaxone For Iv Use (Rocephin For I (07/21/20 20:00) Covid 19 Inhouse Test (07/21/20 20:00) (JOSE ALFREDO OWEN APRN) Medications Given in ED Current Medications Medications Dose Ordered Sig/Pablo Route Start Time Stop Time Status Last Admin Dose Admin Acetaminophen 650 mg ONCE ONCE PO 07/21/20 17:30 07/21/20 17:31 DC 07/21/20 17:35 650 MG Ceftriaxone Sodium 1000 mg/ Sterile Water 10 ml @ 200 mls/hr ONCE ONCE IV 07/21/20 20:00 07/21/20 20:02 DC 07/21/20 20:02 200 MLS/HR Iohexol 100 ml ONCE ONCE IV 07/21/20 17:45 07/21/20 17:46 DC 07/21/20 19:17 75 ML Ondansetron HCl 8 mg ONCE ONCE IVP 07/21/20 17:30 07/21/20 17:31 DC 07/21/20 17:35 8 MG Oxycodone HCl 10 mg ONCE ONCE PO 07/21/20 19:30 07/21/20 19:31 DC 07/21/20 19:30 10 MG Sodium Chloride 100 ml ONCE ONCE IV 07/21/20 17:45 07/21/20 17:46 DC 07/21/20 19:17 100 ML Sodium Chloride 500 ml @ 0 mls/hr Q0M ONCE IV 07/21/20 17:22 07/21/20 17:25 DC 07/21/20 19:17 0 MLS/HR (JOSE ALFREDO OWEN APRN) Vital Signs/I&O 07/21/20 17:10 Temp 38.2 Pulse 76 Resp 16 B/P (MAP) 191/76 (114) Pulse Ox 96 O2 Delivery Room Air (JOSE ALFREDO OWEN APRN) Vital Signs/I&O Capillary Refill : (SANCHO MORE) Progress Note : Time: 19:31 Progress Note After a dose of Zofran and some her baseline oxycodone the patient's pain and nausea are under control. She is has dysuria. She is only here because of the nausea she's not having any acute respiratory complaints. Chest x-ray is consistent with COVID 19 but her oxygen sats are 96% and above nonlabored breathing on room air. We are passing the patient to the care of Jose Alfredo Owen. She is on the commode trying to obtain a urinalysis. Based on the urinalysis and the results of the CT angiogram for possible pulmonary embolism he will disposition her probably towards home. Patient is okay with this plan. She also received 1500 cc of fluids. (SANCHO MORE) Diagnostic Imaging Diagonstic Imaging: Xray Plain Films/CT/US/NM/MRI: chest Reviewed: Reviewed by Me Diagonstic Imaging: CT (angio) Plain Films/CT/US/NM/MRI: chest Reviewed: Reviewed by Me (SANCHO MORE) Transfer of Care Transfer of Care Time: 19:30 Care transferred to: Jose Alfredo Owen (SANCHO MORE) Departure Communication (Admissions) 2009-I have taken over care of the patient . She is sitting up on the commode, states that she came in only because of her nausea and that is well controlled at this time. She is very happy to hear that she gets to go home. I spoke with her son Ryland. She tested positive for Covid on the , he would like to know if she still tests positive so we can decide what type of protective measures he needs to implement when he comes to pick her up. She does have a urinary tract infection so I'll give some Rocephin here and discharged home with some nausea medicine and prescription for cefuroxime axetil outpatient. (JOSE ALFREDO OWEN FOOD AND BEVERAGE ASSISTANT) Impression Primary Impression: COVID-19 Additional Impressions: Nausea and vomiting Qualified Codes: R11.2 - Nausea with vomiting, unspecified Dehydration Urinary tract infection Disposition: HOME, SELF-CARE Condition: Stable Departure-Patient Inst. Decision time for Depature: 20:13 (JOSE ALFREDO OWEN APRN) Referrals: EDWIN BLUM MD (PCP/Family) Primary Care Physician Patient Instructions: Urinary Tract Infection, Adult (DC) Add. Discharge Instructions: 1. Return to ER for any concerns. Call Dr. Blum tomorrow to make an appointment to be seen later this week. Take the antibiotics as directed starting tomorrow. All discharge instructions reviewed with patient and/or family. Voiced understanding. Scripts Cefuroxime Axetil (Cefuroxime) 250 Mg Tablet 250 MG PO BID, #10 TAB Prov: JOSE ALFREDO OWEN APRN 07/21/20 Copy Copies To 1: EDWIN BLUM MD, TITUS J Jul 21, 2020 17:27 JOSE ALFREDO OWEN APRN Jul 21, 2020 20:14
[2020-07-21] MEDS ORDERED: ACETAMINOPHEN 325 MG TABLET PO ONE (17:30)
[2020-07-21] MEDS ORDERED: ONDANSETRON 4 MG/2 ML (SDV) Z0FRAN IVP ONE (17:30)
[2020-07-21] MEDS ORDERED: HOLD METFORMIN - RECEIVED CONTRAST 20 ML VIAL IV SCH (17:45)
[2020-07-21] MEDS ORDERED: IOHEXOL 350 MG/ML 100 ML (OMNIPAQUE 350) VIAL IV ONE (17:45)
[2020-07-21] MEDS ORDERED: NS 100 ML (IVPB) BAG IV ONE (17:45)
[2020-07-21 17:51] LABS: BASOPHILS % (AUTO) 0 % (0-10); EOSINOPHILS % (AUTO) 0 % (0-10); HEMATOCRIT 33 % (35-52); HEMOGLOBIN 10.9 g/dL (11.5-16.0); LYMPHOCYTES # (AUTO) 0.5 10^3/uL (1.0-4.0); LYMPHOCYTES % (AUTO) 6 % (12-44); MEAN CORPUSCULAR HEMOGLOBIN 31 pg (25-34); MEAN CORPUSCULAR HGB CONC 33 g/dL (32-36); MEAN CORPUSCULAR VOLUME 96 fL (80-99); MEAN PLATELET VOLUME 11.2 fL (9.0-12.2); MONOCYTES # (AUTO) 0.4 10^3/uL (0.0-1.0); MONOCYTES % (AUTO) 5 % (0-12); NEUTROPHILS # (AUTO) 7.6 10^3/uL (1.8-7.8); NEUTROPHILS % (AUTO) 88 % (42-75); PLATELET COUNT 339 10^3/uL (130-400); WHITE BLOOD COUNT 8.6 10^3/uL (4.3-11.0)
[2020-07-21 18:07] LABS: ALBUMIN 3.6 GM/DL (3.2-4.5); CHLORIDE 101 MMOL/L (98-107); POTASSIUM 3.7 MMOL/L (3.6-5.0); SODIUM 138 MMOL/L (135-145)
[2020-07-21 18:08] LABS: CALCIUM 8.4 MG/DL (8.5-10.1)
[2020-07-21 18:09] LABS: GLUCOSE 117 MG/DL (70-105); LYMPHOCYTES % (MANUAL) 7 %; MONOCYTES % (MANUAL) 5 %; NEUTROPHILS % (MANUAL) 88 %; RBC MORPH NORMAL; TOTAL PROTEIN 6.8 GM/DL (6.4-8.2)
[2020-07-21 18:10] LABS: CARBON DIOXIDE 25 MMOL/L (21-32)
[2020-07-21 18:11] LABS: BILIRUBIN,TOTAL 0.5 MG/DL (0.1-1.0)
[2020-07-21 18:13] LABS: ALKALINE PHOSPHATASE 55 U/L (40-136); CREATININE SERUM 0.77 MG/DL (0.60-1.30); GFR ESTIMATED > 60
[2020-07-21 18:14] LABS: BUN/CREATININE RATIO 18
[2020-07-21 18:16] LABS: ALANINE AMINOTRANSFERASE 21 U/L (0-55)
--- NOTE | 2020-07-21 19:15 | NUR ---
Jensen Madrid returns pt from CT reporting 22g iv to L wrist blew et 20g iv to L FA was restarted. Pt reporting pain to "bones." Provider notified.
[2020-07-21] MEDS ORDERED: oxyCODONE ER 10 MG (OxyCONTIN CR) TAB PO ONE (19:30)
--- NOTE | 2020-07-21 19:32 | Diagnostic Imaging Report ---
EXAMINATION: CT angiography of the chest. TECHNIQUE: Contrast enhanced thin section helical images were obtained through the chest with intravenous contrast timed for the optimal opacification of the arterial structures per CTA protocol. Post-processing, reconstructions and interpretation of angiographic images of the vessels was performed. 3D MIP reconstructions were performed and reviewed. All CT scans use one or more of the following dose optimizing techniques: automated exposure control, MA and/or KvP adjustment based on a patient size and exam type, or iterative reconstruction. HISTORY: Shortness of breath, COVID-19. COMPARISON: CT chest, abdomen, and pelvis 09/10/2019 FINDINGS: Vascular: No filling defects within the pulmonary arteries. Thoracic aorta is normal in caliber. Calcification of the aorta and coronary vessels. Thyroid: Heterogeneous appearance of the thyroid gland. Mediastinum: Heart size is normal without significant pericardial effusion. No suspicious lymphadenopathy. Lungs and airways: Patchy groundglass consolidation and airspace opacities throughout both lungs. Reticular opacities in the lung bases which may be due to atelectasis or fibrosis. No pleural effusion or pneumothorax. No pathologically enlarged lymph nodes. The airways are normal. Upper abdomen: A moderate hiatal hernia is present. Musculoskeletal: Heterogeneous, moth-eaten appearance of the osseous structures. There is a 2.5 cm left breast mass which does not appear significantly changed from 09/10/2019. IMPRESSION: 1. No findings of pulmonary embolus. 2. Patchy groundglass opacities and consolidation throughout both lungs compatible with pneumonia and history of COVID-19. 3. Stable appearance of the left breast mass consistent with known history of breast cancer. 4. Heterogeneous, moth-eaten appearance of the spine likely secondary to osseous metastatic disease. Dictated by: Dictated on workstation # [id number]
[2020-07-21 19:43] LABS: BILIRUBIN,URINE NEGATIVE (NEGATIVE); CLARITY,URINE CLEAR; COLOR,URINE YELLOW; GLUCOSE, URINE (UA) NEGATIVE (NEGATIVE); KETONES,URINE 1+ (NEGATIVE); LEUKOCYTE ESTERASE ,URINE 2+ (NEGATIVE); NITRITE,URINE POSITIVE (NEGATIVE); PROTEIN,URINE 1+ (NEGATIVE)
--- NOTE | 2020-07-21 19:47 | Diagnostic Imaging Report ---
EXAMINATION: Chest 1 view HISTORY: Covid 19, shortness of breath and fever. COMPARISON: Chest radiograph 07/08/2020. FINDINGS: Heart size and pulmonary vasculature are stable. The diffuse interstitial opacities seen on the prior radiograph have improved from 07/08/2020. There continues to be patchy airspace opacities within the left mid and lower lung and right lung base. No pleural effusion or pneumothorax. Calcifications of the aorta. The osseous structures are intact. IMPRESSION: 1. Overall improved appearance of the patchy interstitial opacities throughout both lungs compared to 07/08/2020. Residual airspace opacities within the left mid and bilateral lower lungs. Dictated by: Dictated on workstation # [id number]
[2020-07-21 19:55] LABS: BACTERIA,URINE LARGE /HPF; WBC,URINE 50-100 /HPF
[2020-07-21] MEDS ORDERED: cefTRIAXone FOR IV USE 1,000 MG in WATER (STERILE) FOR INJECTION 10 ML IV ONE (20:00)
[2020-07-21] MEDS ORDERED: CEFU250T80 PO (20:14)
[2020-07-21 20:55] VITALS: BP 161/86
== END 2020-07-21 20:55 | disposition home or self-care (01) ==
LOC: EDUNIT# 17:07 → ER 17:10
DX: U07.1 COVID-19 (principal); R11.2 Nausea with vomiting, unspecified; E86.0 Dehydration; N39.0 Urinary tract infection, site not specified; Z82.49 Family history of ischemic heart disease and other diseases of the circulatory system; Z85.3 Personal history of malignant neoplasm of breast; Z85.830 Personal history of malignant neoplasm of bone
CPT/HCPCS: 71045; 71275; 80053; 81000; 84145; 85007; 85027; 85379; 86141; 87040; 87077; 87088; 87804; 99284; U0002; 36415; 87635

== ENCOUNTER 2020-08-08 10:50 | Outpatient (RCR) | payer MEDICARE ==
[2020-05-29 15:17] LABS: HEMATOCRIT 32 % (35-52); HEMOGLOBIN 11.2 G/DL (11.5-16.0); LYMPHOCYTES % (AUTO) 30 % (12-44); MEAN CORPUSCULAR HEMOGLOBIN 33 PG (25-34); MEAN CORPUSCULAR HGB CONC 35 G/DL (32-36); MEAN CORPUSCULAR VOLUME 96 FL (80-99); MEAN PLATELET VOLUME 10.1 FL (7.4-10.4); MONOCYTES % (AUTO) 13 % (0-12); NEUTROPHILS % (AUTO) 39 % (42-75); PLATELET COUNT 210 10^3/uL (130-400); WHITE BLOOD COUNT 2.7 10^3/uL (4.3-11.0)
[2020-05-29 15:18] LABS: BASOPHILS # (AUTO) 0.1 10^3/uL (0.0-0.1); BASOPHILS % (AUTO) 5 % (0-10); EOSINOPHILS # (AUTO) 0.3 10^3/uL (0.0-0.3); EOSINOPHILS % (AUTO) 13 % (0-10); LYMPHOCYTES # (AUTO) 0.8 X 10^3 (1.0-4.0); MONOCYTES # (AUTO) 0.4 X 10^3 (0.0-1.0); NEUTROPHILS # (AUTO) 1.1 X 10^3 (1.8-7.8)
[2020-05-29 15:32] LABS: ALANINE AMINOTRANSFERASE 14 U/L (0-55); ALBUMIN 3.9 GM/DL (3.2-4.5); ALKALINE PHOSPHATASE 49 U/L (40-136); BILIRUBIN,TOTAL 0.3 MG/DL (0.1-1.0); BUN/CREATININE RATIO 19; CALCIUM 9.1 MG/DL (8.5-10.1); CARBON DIOXIDE 23 MMOL/L (21-32); CHLORIDE 108 MMOL/L (98-107); CREATININE SERUM 0.83 MG/DL (0.60-1.30); GFR ESTIMATED > 60; GLUCOSE 98 MG/DL (70-105); POTASSIUM 4.1 MMOL/L (3.6-5.0); SODIUM 141 MMOL/L (135-145)
[~2020-08-08 10:50] MED LIST changes: +CEFU250T80 PO; +DENOSUMAB 120 MG/1.7 ML (XGEVA) SQ SCH
[2020-08-08 11:06] LABS: BASOPHILS # (AUTO) 0.1 10^3/uL (0.0-0.1); BASOPHILS % (AUTO) 2 % (0-10); EOSINOPHILS # (AUTO) 0.2 10^3/uL (0.0-0.3); EOSINOPHILS % (AUTO) 7 % (0-10); HEMATOCRIT 30 % (35-52); LYMPHOCYTES # (AUTO) 0.5 10^3/uL (1.0-4.0); LYMPHOCYTES % (AUTO) 25 % (12-44); MEAN CORPUSCULAR HEMOGLOBIN 32 pg (25-34); MEAN CORPUSCULAR HGB CONC 33 g/dL (32-36); MEAN CORPUSCULAR VOLUME 97 fL (80-99); MEAN PLATELET VOLUME 10.4 fL (9.0-12.2); MONOCYTES # (AUTO) 0.3 10^3/uL (0.0-1.0); MONOCYTES % (AUTO) 12 % (0-12); NEUTROPHILS # (AUTO) 1.2 10^3/uL (1.8-7.8); NEUTROPHILS % (AUTO) 54 % (42-75); PLATELET COUNT 161 10^3/uL (130-400); WHITE BLOOD COUNT 2.2 10^3/uL (4.3-11.0)
[2020-08-08 11:22] LABS: ALANINE AMINOTRANSFERASE 11 U/L (0-55); ALBUMIN 3.8 GM/DL (3.2-4.5); ALKALINE PHOSPHATASE 51 U/L (40-136); BILIRUBIN,TOTAL 0.6 MG/DL (0.1-1.0); BUN/CREATININE RATIO 17; CARBON DIOXIDE 23 MMOL/L (21-32); CHLORIDE 108 MMOL/L (98-107); CREATININE SERUM 0.78 MG/DL (0.60-1.30); GFR ESTIMATED > 60; GLUCOSE 106 MG/DL (70-105); POTASSIUM 3.4 MMOL/L (3.6-5.0); SODIUM 140 MMOL/L (135-145); TOTAL PROTEIN 6.9 GM/DL (6.4-8.2)
== END 2020-08-27 | disposition home or self-care (01) ==
LOC: ONC 10:50
PROVIDERS: ATTEND Internal Medicine Hematology & Oncology
DX: C50.312 Malignant neoplasm of lower-inner quadrant of left female breast (principal); C79.51 Secondary malignant neoplasm of bone; N39.0 Urinary tract infection, site not specified; Z70.9 Sex counseling, unspecified; Z79.899 Other long term (current) drug therapy; Z92.3 Personal history of irradiation; Z98.890 Other specified postprocedural states
CPT/HCPCS: 80053; 82728; 83540; 85025; 96372

== ENCOUNTER 2020-11-25 14:21 | Outpatient (RCR) | payer MEDICARE ==
[2020-09-05 10:51] LABS: BASOPHILS # (AUTO) 0.1 10^3/uL (0.0-0.1); BASOPHILS % (AUTO) 3 % (0-10); EOSINOPHILS # (AUTO) 0.3 10^3/uL (0.0-0.3); EOSINOPHILS % (AUTO) 12 % (0-10); HEMATOCRIT 36 % (35-52); HEMOGLOBIN 11.7 g/dL (11.5-16.0); LYMPHOCYTES # (AUTO) 0.8 10^3/uL (1.0-4.0); LYMPHOCYTES % (AUTO) 31 % (12-44); MEAN CORPUSCULAR HEMOGLOBIN 32 pg (25-34); MEAN CORPUSCULAR HGB CONC 33 g/dL (32-36); MEAN CORPUSCULAR VOLUME 96 fL (80-99); MONOCYTES # (AUTO) 0.3 10^3/uL (0.0-1.0); MONOCYTES % (AUTO) 12 % (0-12); NEUTROPHILS # (AUTO) 1.2 10^3/uL (1.8-7.8); NEUTROPHILS % (AUTO) 43 % (42-75); PLATELET COUNT 206 10^3/uL (130-400); WHITE BLOOD COUNT 2.7 10^3/uL (4.3-11.0)
[2020-09-05 11:09] LABS: ALANINE AMINOTRANSFERASE 15 U/L (0-55); ALKALINE PHOSPHATASE 50 U/L (40-136); BILIRUBIN,TOTAL 0.4 MG/DL (0.1-1.0); BUN/CREATININE RATIO 20; CARBON DIOXIDE 23 MMOL/L (21-32); CHLORIDE 107 MMOL/L (98-107); CREATININE SERUM 0.82 MG/DL (0.60-1.30); GFR ESTIMATED > 60; GLUCOSE 95 MG/DL (70-105); POTASSIUM 3.7 MMOL/L (3.6-5.0); SODIUM 141 MMOL/L (135-145); TOTAL PROTEIN 7.3 GM/DL (6.4-8.2)
[2020-10-14 15:00] LABS: BASOPHILS # (AUTO) 0.1 10^3/uL (0.0-0.1); BASOPHILS % (AUTO) 2 % (0-10); EOSINOPHILS # (AUTO) 0.3 10^3/uL (0.0-0.3); EOSINOPHILS % (AUTO) 8 % (0-10); HEMATOCRIT 36 % (35-52); HEMOGLOBIN 11.9 g/dL (11.5-16.0); LYMPHOCYTES # (AUTO) 0.9 10^3/uL (1.0-4.0); LYMPHOCYTES % (AUTO) 23 % (12-44); MEAN CORPUSCULAR HEMOGLOBIN 31 pg (25-34); MEAN CORPUSCULAR HGB CONC 33 g/dL (32-36); MEAN CORPUSCULAR VOLUME 95 fL (80-99); MEAN PLATELET VOLUME 10.6 fL (9.0-12.2); MONOCYTES # (AUTO) 0.5 10^3/uL (0.0-1.0); MONOCYTES % (AUTO) 12 % (0-12); NEUTROPHILS # (AUTO) 2.2 10^3/uL (1.8-7.8); NEUTROPHILS % (AUTO) 56 % (42-75); PLATELET COUNT 243 10^3/uL (130-400)
[2020-10-14 15:48] LABS: ALBUMIN 4.1 GM/DL (3.2-4.5); BILIRUBIN,TOTAL 0.3 MG/DL (0.1-1.0); CREATININE SERUM 0.95 MG/DL (0.60-1.30); POTASSIUM 4.1 MMOL/L (3.6-5.0); TOTAL PROTEIN 7.4 GM/DL (6.4-8.2)
[~2020-11-25 14:21] MED LIST changes: +CHOL-34 PO; -CHOL10002 PO
[2020-11-25 14:43] LABS: BASOPHILS # (AUTO) 0.1 10^3/uL (0.0-0.1); BASOPHILS % (AUTO) 3 % (0-10); EOSINOPHILS # (AUTO) 0.3 10^3/uL (0.0-0.3); EOSINOPHILS % (AUTO) 10 % (0-10); HEMATOCRIT 35 % (35-52); HEMOGLOBIN 11.6 g/dL (11.5-16.0); LYMPHOCYTES % (AUTO) 29 % (12-44); MEAN CORPUSCULAR HEMOGLOBIN 31 pg (25-34); MEAN CORPUSCULAR HGB CONC 33 g/dL (32-36); MEAN CORPUSCULAR VOLUME 94 fL (80-99); MEAN PLATELET VOLUME 9.9 fL (9.0-12.2); MONOCYTES # (AUTO) 0.4 10^3/uL (0.0-1.0); MONOCYTES % (AUTO) 11 % (0-12); NEUTROPHILS # (AUTO) 1.6 10^3/uL (1.8-7.8); NEUTROPHILS % (AUTO) 47 % (42-75); PLATELET COUNT 263 10^3/uL (130-400); WHITE BLOOD COUNT 3.4 10^3/uL (4.3-11.0)
[2020-11-25 15:03] LABS: ALANINE AMINOTRANSFERASE 15 U/L (0-55); ALBUMIN 4.1 GM/DL (3.2-4.5); ALKALINE PHOSPHATASE 45 U/L (40-136); BILIRUBIN,TOTAL 0.4 MG/DL (0.1-1.0); BUN/CREATININE RATIO 18; CALCIUM 9.8 MG/DL (8.5-10.1); CARBON DIOXIDE 26 MMOL/L (21-32); CHLORIDE 108 MMOL/L (98-107); CREATININE SERUM 0.83 MG/DL (0.60-1.30); GFR ESTIMATED > 60; GLUCOSE 131 MG/DL (70-105); SODIUM 142 MMOL/L (135-145); TOTAL PROTEIN 7.3 GM/DL (6.4-8.2)
== END 2020-12-04 | disposition home or self-care (01) ==
LOC: ONC 14:21
PROVIDERS: ATTEND Internal Medicine Hematology & Oncology
DX: C50.312 Malignant neoplasm of lower-inner quadrant of left female breast (principal); C79.51 Secondary malignant neoplasm of bone; C78.00 Secondary malignant neoplasm of unspecified lung; N39.0 Urinary tract infection, site not specified; Z70.9 Sex counseling, unspecified; Z79.899 Other long term (current) drug therapy; Z92.3 Personal history of irradiation; Z98.890 Other specified postprocedural states
CPT/HCPCS: 80053; 85025; G0463; 96372; 99213

== ENCOUNTER 2021-03-09 13:51 | Outpatient (RCR) | payer MEDICARE ==
[2021-01-06 14:50] LABS: BASOPHILS % (AUTO) 1 % (0-10); EOSINOPHILS # (AUTO) 0.4 10^3/uL (0.0-0.3); EOSINOPHILS % (AUTO) 10 % (0-10); HEMATOCRIT 34 % (35-52); HEMOGLOBIN 11.3 g/dL (11.5-16.0); LYMPHOCYTES # (AUTO) 1.1 X 10^3 (1.0-4.0); LYMPHOCYTES % (AUTO) 26 % (12-44); MEAN CORPUSCULAR HEMOGLOBIN 31 pg (25-34); MEAN CORPUSCULAR HGB CONC 33 g/dL (32-36); MEAN CORPUSCULAR VOLUME 93 fL (80-99); MEAN PLATELET VOLUME 10.2 fL (9.0-12.2); MONOCYTES # (AUTO) 0.4 X 10^3 (0.0-1.0); MONOCYTES % (AUTO) 11 % (0-12); NEUTROPHILS % (AUTO) 51 % (42-75); PLATELET COUNT 254 10^3/uL (130-400)
[2021-01-06 15:13] LABS: ALANINE AMINOTRANSFERASE 10 U/L (0-55); ALBUMIN 3.9 GM/DL (3.2-4.5); ALKALINE PHOSPHATASE 58 U/L (40-136); BILIRUBIN,TOTAL 0.3 MG/DL (0.1-1.0); BUN/CREATININE RATIO 20; CALCIUM 9.7 MG/DL (8.5-10.1); CARBON DIOXIDE 27 MMOL/L (21-32); CHLORIDE 107 MMOL/L (98-107); GFR ESTIMATED > 60; GLUCOSE 100 MG/DL (70-105); POTASSIUM 3.7 MMOL/L (3.6-5.0); SODIUM 140 MMOL/L (135-145); TOTAL PROTEIN 7.1 GM/DL (6.4-8.2)
[2021-02-17 14:59] LABS: BASOPHILS # (AUTO) 0.1 10^3/uL (0.0-0.1); BASOPHILS % (AUTO) 3 % (0-10); EOSINOPHILS # (AUTO) 0.4 10^3/uL (0.0-0.3); EOSINOPHILS % (AUTO) 12 % (0-10); HEMATOCRIT 35 % (35-52); HEMOGLOBIN 11.6 g/dL (11.5-16.0); LYMPHOCYTES # (AUTO) 0.9 10^3/uL (1.0-4.0); LYMPHOCYTES % (AUTO) 27 % (12-44); MEAN CORPUSCULAR HEMOGLOBIN 31 pg (25-34); MEAN CORPUSCULAR HGB CONC 33 g/dL (32-36); MEAN CORPUSCULAR VOLUME 94 fL (80-99); MEAN PLATELET VOLUME 9.6 fL (9.0-12.2); MONOCYTES # (AUTO) 0.5 10^3/uL (0.0-1.0); MONOCYTES % (AUTO) 14 % (0-12); NEUTROPHILS # (AUTO) 1.5 10^3/uL (1.8-7.8); NEUTROPHILS % (AUTO) 44 % (42-75); PLATELET COUNT 276 10^3/uL (130-400); WHITE BLOOD COUNT 3.3 10^3/uL (4.3-11.0)
[2021-02-17 15:19] LABS: ALANINE AMINOTRANSFERASE 12 U/L (0-55); ALKALINE PHOSPHATASE 53 U/L (40-136); BILIRUBIN,TOTAL 0.2 MG/DL (0.1-1.0); BUN/CREATININE RATIO 16; CALCIUM 9.9 MG/DL (8.5-10.1); CARBON DIOXIDE 30 MMOL/L (21-32); CHLORIDE 108 MMOL/L (98-107); CREATININE SERUM 0.83 MG/DL (0.60-1.30); GFR ESTIMATED > 60; GLUCOSE 107 MG/DL (70-105); POTASSIUM 3.6 MMOL/L (3.6-5.0); SODIUM 143 MMOL/L (135-145)
[2021-03-09 14:15] LABS: BASOPHILS # (AUTO) 0.1 10^3/uL (0.0-0.1); BASOPHILS % (AUTO) 3 % (0-10); EOSINOPHILS # (AUTO) 0.4 10^3/uL (0.0-0.3); EOSINOPHILS % (AUTO) 15 % (0-10); HEMATOCRIT 34 % (35-52); HEMOGLOBIN 11.4 g/dL (11.5-16.0); LYMPHOCYTES # (AUTO) 0.7 10^3/uL (1.0-4.0); LYMPHOCYTES % (AUTO) 24 % (12-44); MEAN CORPUSCULAR HEMOGLOBIN 31 pg (25-34); MEAN CORPUSCULAR HGB CONC 34 g/dL (32-36); MEAN CORPUSCULAR VOLUME 93 fL (80-99); MEAN PLATELET VOLUME 10.7 fL (9.0-12.2); MONOCYTES # (AUTO) 0.3 10^3/uL (0.0-1.0); MONOCYTES % (AUTO) 10 % (0-12); NEUTROPHILS # (AUTO) 1.5 10^3/uL (1.8-7.8); NEUTROPHILS % (AUTO) 49 % (42-75); PLATELET COUNT 210 10^3/uL (130-400)
[2021-03-09 14:37] LABS: ALANINE AMINOTRANSFERASE 13 U/L (0-55); ALBUMIN 3.7 GM/DL (3.2-4.5); ALKALINE PHOSPHATASE 50 U/L (40-136); BILIRUBIN,TOTAL 0.3 MG/DL (0.1-1.0); BUN/CREATININE RATIO 13; CALCIUM 9.2 MG/DL (8.5-10.1); CARBON DIOXIDE 28 MMOL/L (21-32); CHLORIDE 109 MMOL/L (98-107); CREATININE SERUM 0.78 MG/DL (0.60-1.30); GFR ESTIMATED > 60; GLUCOSE 114 MG/DL (70-105); POTASSIUM 3.9 MMOL/L (3.6-5.0); SODIUM 141 MMOL/L (135-145); TOTAL PROTEIN 6.6 GM/DL (6.4-8.2)
== END 2021-04-06 | disposition home or self-care (01) ==
LOC: ONC 13:51
PROVIDERS: ATTEND Internal Medicine Hematology & Oncology
DX: C50.912 Malignant neoplasm of unspecified site of left female breast (principal); C79.51 Secondary malignant neoplasm of bone; C78.01 Secondary malignant neoplasm of right lung; C78.02 Secondary malignant neoplasm of left lung; D70.9 Neutropenia, unspecified; Z79.899 Other long term (current) drug therapy; Z92.3 Personal history of irradiation
CPT/HCPCS: 80053; 85025; G0463; 96372; 99213

== ENCOUNTER 2021-07-13 14:32 | Outpatient (RCR) | payer MEDICARE ==
[2021-04-21 14:08] LABS: BASOPHILS # (AUTO) 0.1 10^3/uL (0.0-0.1); BASOPHILS % (AUTO) 3 % (0-10); EOSINOPHILS # (AUTO) 0.3 10^3/uL (0.0-0.3); EOSINOPHILS % (AUTO) 12 % (0-10); HEMATOCRIT 33 % (35-52); HEMOGLOBIN 10.8 g/dL (11.5-16.0); LYMPHOCYTES # (AUTO) 0.6 10^3/uL (1.0-4.0); LYMPHOCYTES % (AUTO) 24 % (12-44); MEAN CORPUSCULAR HEMOGLOBIN 31 pg (25-34); MEAN CORPUSCULAR HGB CONC 33 g/dL (32-36); MEAN CORPUSCULAR VOLUME 94 fL (80-99); MEAN PLATELET VOLUME 10.3 fL (9.0-12.2); MONOCYTES # (AUTO) 0.4 10^3/uL (0.0-1.0); MONOCYTES % (AUTO) 14 % (0-12); NEUTROPHILS # (AUTO) 1.3 10^3/uL (1.8-7.8); NEUTROPHILS % (AUTO) 48 % (42-75); PLATELET COUNT 204 10^3/uL (130-400); WHITE BLOOD COUNT 2.6 10^3/uL (4.3-11.0)
[2021-04-21 14:31] LABS: ALBUMIN 3.8 GM/DL (3.2-4.5); BILIRUBIN,TOTAL 0.3 MG/DL (0.1-1.0); CALCIUM 9.7 MG/DL (8.5-10.1); CREATININE SERUM 0.76 MG/DL (0.60-1.30); POTASSIUM 3.9 MMOL/L (3.6-5.0); TOTAL PROTEIN 6.6 GM/DL (6.4-8.2)
[2021-06-01 13:06] LABS: BASOPHILS # (AUTO) 0.1 10^3/uL (0.0-0.1); BASOPHILS % (AUTO) 3 % (0-10); EOSINOPHILS # (AUTO) 0.3 10^3/uL (0.0-0.3); EOSINOPHILS % (AUTO) 10 % (0-10); HEMATOCRIT 35 % (35-52); HEMOGLOBIN 11.5 g/dL (11.5-16.0); LYMPHOCYTES # (AUTO) 0.7 10^3/uL (1.0-4.0); LYMPHOCYTES % (AUTO) 23 % (12-44); MEAN CORPUSCULAR HEMOGLOBIN 31 pg (25-34); MEAN CORPUSCULAR HGB CONC 33 g/dL (32-36); MEAN CORPUSCULAR VOLUME 93 fL (80-99); MEAN PLATELET VOLUME 10.4 fL (9.0-12.2); MONOCYTES # (AUTO) 0.3 10^3/uL (0.0-1.0); MONOCYTES % (AUTO) 10 % (0-12); NEUTROPHILS # (AUTO) 1.6 10^3/uL (1.8-7.8); NEUTROPHILS % (AUTO) 54 % (42-75); PLATELET COUNT 251 10^3/uL (130-400)
[2021-06-01 13:23] LABS: BILIRUBIN,TOTAL 0.6 MG/DL (0.1-1.0); CALCIUM 9.8 MG/DL (8.5-10.1); CREATININE SERUM 0.74 MG/DL (0.60-1.30); POTASSIUM 3.9 MMOL/L (3.6-5.0); TOTAL PROTEIN 7.1 GM/DL (6.4-8.2)
[~2021-07-13 14:32] MED LIST changes: +ONDA-106 PO; -ONDA8TAB15 PO
[2021-07-13 14:56] LABS: BASOPHILS # (AUTO) 0.1 10^3/uL (0.0-0.1); BASOPHILS % (AUTO) 2 % (0-10); EOSINOPHILS # (AUTO) 0.3 10^3/uL (0.0-0.3); EOSINOPHILS % (AUTO) 9 % (0-10); HEMATOCRIT 37 % (35-52); HEMOGLOBIN 12.3 g/dL (11.5-16.0); LYMPHOCYTES # (AUTO) 0.7 10^3/uL (1.0-4.0); LYMPHOCYTES % (AUTO) 21 % (12-44); MEAN CORPUSCULAR HEMOGLOBIN 31 pg (25-34); MEAN CORPUSCULAR HGB CONC 33 g/dL (32-36); MEAN CORPUSCULAR VOLUME 94 fL (80-99); MEAN PLATELET VOLUME 10.6 fL (9.0-12.2); MONOCYTES # (AUTO) 0.4 10^3/uL (0.0-1.0); MONOCYTES % (AUTO) 11 % (0-12); NEUTROPHILS # (AUTO) 1.8 10^3/uL (1.8-7.8); NEUTROPHILS % (AUTO) 57 % (42-75); PLATELET COUNT 211 10^3/uL (130-400); WHITE BLOOD COUNT 3.2 10^3/uL (4.3-11.0)
[2021-07-13 15:17] LABS: ALBUMIN 4.3 GM/DL (3.2-4.5); BILIRUBIN,TOTAL 0.6 MG/DL (0.1-1.0); CALCIUM 9.8 MG/DL (8.5-10.1); CREATININE SERUM 0.79 MG/DL (0.60-1.30); POTASSIUM 3.7 MMOL/L (3.6-5.0); TOTAL PROTEIN 7.5 GM/DL (6.4-8.2)
== END 2021-07-20 | disposition home or self-care (01) ==
LOC: ONC 14:32
PROVIDERS: ATTEND Internal Medicine Hematology & Oncology
DX: C50.912 Malignant neoplasm of unspecified site of left female breast (principal); C79.51 Secondary malignant neoplasm of bone; C78.00 Secondary malignant neoplasm of unspecified lung; N39.0 Urinary tract infection, site not specified; D70.9 Neutropenia, unspecified; Z79.899 Other long term (current) drug therapy; Z92.3 Personal history of irradiation; Z98.890 Other specified postprocedural states
CPT/HCPCS: 80053; 85025; G0463; 96372; 99213

== ENCOUNTER 2021-08-24 14:39 | Outpatient (RCR) | payer MEDICARE ==
[2021-08-24 14:50] LABS: BASOPHILS # (AUTO) 0.1 10^3/uL (0.0-0.1); BASOPHILS % (AUTO) 3 % (0-10); EOSINOPHILS # (AUTO) 0.4 10^3/uL (0.0-0.3); EOSINOPHILS % (AUTO) 14 % (0-10); HEMATOCRIT 35 % (35-52); HEMOGLOBIN 11.5 g/dL (11.5-16.0); LYMPHOCYTES # (AUTO) 0.6 10^3/uL (1.0-4.0); LYMPHOCYTES % (AUTO) 19 % (12-44); MEAN CORPUSCULAR HEMOGLOBIN 31 pg (25-34); MEAN CORPUSCULAR HGB CONC 33 g/dL (32-36); MEAN CORPUSCULAR VOLUME 94 fL (80-99); MEAN PLATELET VOLUME 10.7 fL (9.0-12.2); MONOCYTES # (AUTO) 0.4 10^3/uL (0.0-1.0); MONOCYTES % (AUTO) 12 % (0-12); NEUTROPHILS # (AUTO) 1.7 10^3/uL (1.8-7.8); NEUTROPHILS % (AUTO) 52 % (42-75); PLATELET COUNT 204 10^3/uL (130-400); WHITE BLOOD COUNT 3.2 10^3/uL (4.3-11.0)
[2021-08-24 15:09] LABS: ALBUMIN 3.8 GM/DL (3.2-4.5); BILIRUBIN,TOTAL 0.3 MG/DL (0.1-1.0); CALCIUM 9.2 MG/DL (8.5-10.1); CREATININE SERUM 0.78 MG/DL (0.60-1.30); POTASSIUM 3.7 MMOL/L (3.6-5.0); TOTAL PROTEIN 6.5 GM/DL (6.4-8.2)
[2021-08-24] MEDS ORDERED: DENOSUMAB 120 MG/1.7 ML (XGEVA) SQ SCH (15:11)
== END 2021-09-21 | disposition home or self-care (01) ==
LOC: ONC 14:39
PROVIDERS: ATTEND Internal Medicine Hematology & Oncology
DX: C50.912 Malignant neoplasm of unspecified site of left female breast (principal); C79.51 Secondary malignant neoplasm of bone; C78.01 Secondary malignant neoplasm of right lung; C78.02 Secondary malignant neoplasm of left lung; N39.0 Urinary tract infection, site not specified; D70.9 Neutropenia, unspecified; Z79.899 Other long term (current) drug therapy; Z92.3 Personal history of irradiation; Z98.890 Other specified postprocedural states
CPT/HCPCS: 80053; 85025; 96372; G0463; 99213

== ENCOUNTER 2021-10-05 14:41 | Outpatient (RCR) | payer MEDICARE ==
[~2021-10-05 14:41] MED LIST changes: -DENOSUMAB 120 MG/1.7 ML (XGEVA) SQ SCH
[2021-10-05 14:58] LABS: BASOPHILS # (AUTO) 0.1 10^3/uL (0.0-0.1); BASOPHILS % (AUTO) 2 % (0-10); EOSINOPHILS # (AUTO) 0.4 10^3/uL (0.0-0.3); EOSINOPHILS % (AUTO) 12 % (0-10); HEMATOCRIT 34 % (35-52); HEMOGLOBIN 10.9 g/dL (11.5-16.0); LYMPHOCYTES # (AUTO) 0.8 10^3/uL (1.0-4.0); LYMPHOCYTES % (AUTO) 26 % (12-44); MEAN CORPUSCULAR HEMOGLOBIN 30 pg (25-34); MEAN CORPUSCULAR HGB CONC 32 g/dL (32-36); MEAN CORPUSCULAR VOLUME 94 fL (80-99); MEAN PLATELET VOLUME 10.2 fL (9.0-12.2); MONOCYTES # (AUTO) 0.4 10^3/uL (0.0-1.0); MONOCYTES % (AUTO) 12 % (0-12); NEUTROPHILS # (AUTO) 1.6 10^3/uL (1.8-7.8); NEUTROPHILS % (AUTO) 48 % (42-75); PLATELET COUNT 227 10^3/uL (130-400); WHITE BLOOD COUNT 3.2 10^3/uL (4.3-11.0)
[2021-10-05 15:23] LABS: ALBUMIN 3.9 GM/DL (3.2-4.5); BILIRUBIN,TOTAL 0.3 MG/DL (0.1-1.0); CALCIUM 9.4 MG/DL (8.5-10.1); CREATININE SERUM 0.78 MG/DL (0.60-1.30); POTASSIUM 3.6 MMOL/L (3.6-5.0); TOTAL PROTEIN 6.9 GM/DL (6.4-8.2)
== END 2021-10-19 | disposition home or self-care (01) ==
LOC: ONC 14:41
PROVIDERS: ATTEND Internal Medicine Hematology & Oncology
DX: C50.912 Malignant neoplasm of unspecified site of left female breast (principal); C79.51 Secondary malignant neoplasm of bone; C78.01 Secondary malignant neoplasm of right lung; C78.02 Secondary malignant neoplasm of left lung; N39.0 Urinary tract infection, site not specified; D64.9 Anemia, unspecified; D70.9 Neutropenia, unspecified; Z79.899 Other long term (current) drug therapy; Z92.3 Personal history of irradiation; Z98.890 Other specified postprocedural states
CPT/HCPCS: 80053; 82728; 83540; 83550; 85025; G0463; 36415; 99213

== ENCOUNTER 2021-11-16 13:43 | Outpatient (RCR) | payer MEDICARE ==
[~2021-11-16 13:43] MED LIST changes: +DENOSUMAB 120 MG/1.7 ML (XGEVA) SQ SCH
[2021-11-16 14:00] LABS: BASOPHILS # (AUTO) 0.1 10^3/uL (0.0-0.1); BASOPHILS % (AUTO) 3 % (0-10); EOSINOPHILS # (AUTO) 0.4 10^3/uL (0.0-0.3); EOSINOPHILS % (AUTO) 14 % (0-10); HEMATOCRIT 35 % (35-52); HEMOGLOBIN 11.7 g/dL (11.5-16.0); LYMPHOCYTES # (AUTO) 0.7 10^3/uL (1.0-4.0); LYMPHOCYTES % (AUTO) 23 % (12-44); MEAN CORPUSCULAR HEMOGLOBIN 31 pg (25-34); MEAN CORPUSCULAR HGB CONC 33 g/dL (32-36); MEAN CORPUSCULAR VOLUME 92 fL (80-99); MEAN PLATELET VOLUME 10.6 fL (9.0-12.2); MONOCYTES # (AUTO) 0.3 10^3/uL (0.0-1.0); MONOCYTES % (AUTO) 11 % (0-12); NEUTROPHILS # (AUTO) 1.5 10^3/uL (1.8-7.8); NEUTROPHILS % (AUTO) 50 % (42-75); PLATELET COUNT 199 10^3/uL (130-400)
[2021-11-16 14:20] LABS: ALBUMIN 3.9 GM/DL (3.2-4.5); BILIRUBIN,TOTAL 0.4 MG/DL (0.1-1.0); CALCIUM 9.3 MG/DL (8.5-10.1); CREATININE SERUM 0.8 MG/DL (0.60-1.30); POTASSIUM 3.6 MMOL/L (3.6-5.0); TOTAL PROTEIN 6.8 GM/DL (6.4-8.2)
== END 2021-11-19 | disposition home or self-care (01) ==
LOC: ONC 13:43
PROVIDERS: ATTEND Internal Medicine Hematology & Oncology
DX: C50.912 Malignant neoplasm of unspecified site of left female breast (principal); C79.51 Secondary malignant neoplasm of bone; C78.01 Secondary malignant neoplasm of right lung; C78.02 Secondary malignant neoplasm of left lung; N39.0 Urinary tract infection, site not specified; D64.9 Anemia, unspecified; D70.9 Neutropenia, unspecified; Z79.899 Other long term (current) drug therapy; Z92.3 Personal history of irradiation; Z98.890 Other specified postprocedural states
CPT/HCPCS: 80053; 82728; 83540; 83550; 85025; 96372; G0463; 36415; 99213

== ENCOUNTER 2021-12-15 15:42 | Observation (INO) | payer MEDICARE ==
[~2021-12-15] VITALS: Ht 165.1 cm; Wt 49.6 kg
[~2021-12-15 15:42] MED LIST changes: -DENOSUMAB 120 MG/1.7 ML (XGEVA) SQ SCH
--- NOTE | 2021-12-15 16:31 | ED General ---
General Chief Complaint: General Problems/Pain Stated Complaint: WEAKNESS, CANT EAT, PRESSURE SORE Nursing Triage Note: PT TO RM 09 PER W/C PT CO OF POOR APPETITE, WEAKNESS, AND PT HAS NEW OPEN WOUND NOTED ON COCCYX AREA. PT HAS STAGE 4 BREAST CA. 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 Son-in-law who is present states that she has been having marked increase in weakness over the past 2 days along with decreased appetite. She reports pain and "bumpy area" on her right buttocks 4 days ago and today the area "opened". Son-in law states she has not been eating or drinking well. She is currently taking Ibrance and Letrozole for her breast cancer. Denies fever, chills, nausea, vomiting, diarrhea, abdominal pain. (COURTNEY TOMLINSON HAM BONER) Allergies and Home Medications Allergies Coded Allergies: No Known Drug Allergies (Unverified , 11/30/18) Patient Home Medication List Home Medication List Reviewed: Yes (COURTNEY TOMLINSON APRN) Alprazolam (Xanax) 0.25 Mg Tablet, 0.25 MG PO PRN, (Reported) Entered as Reported by: MENDY RINCON on 12/15/211934 Last Action: New Order Cefuroxime Axetil (Cefuroxime) 250 Mg Tablet, 250 MG PO BID Prescribed by: JOSE ALFREDO GARCÍA on 07/21/202013 Cholecalciferol (Vitamin D3) (Vitamin D3) 25 Mcg Tablet, 25 MCG PO DAILY, (Repo rted) Entered as Reported by: PARAMJIT BARLOW on 07/08/20 150 Cholecalciferol (Vitamin D3) (Vitamin D3) 50 Mcg (2000 Unit) Capsule, 50 MCG PO DAILY, (Reported) Entered as Reported by: MENDY RINCON on 12/15/211934 Last Action: New Order Diphenhydramine HCl (Benadryl) 25 Mg Capsule, 50 MG PO HS PRN for ALLERGY SYMPTOMS, (Reported) Entered as Reported by: PARAMJIT BARLOW on 07/08/20 1504 Letrozole (Letrozole) 2.5 Mg Tablet, 2.5 MG PO DAILY, (Reported) Entered as Reported by: MARY KING on 01/10/19946 Last Action: Last Taken Edited Morphine Sulfate (Morphine Sulfate ER) 15 Mg Tablet.er, 15 MG PO BID, (Reported) Entered as Reported by: MENDY RINCON on 12/15/211934 Last Action: New Order Omeprazole (Omeprazole) 40 Mg Capsule.dr, 40 MG PO DAILY, (Reported) Entered as Reported by: MENDY RINCON on 12/15/211934 Last Action: New Order Ondansetron HCl (Ondansetron HCl) 8 Mg Tablet, 8 MG PO DAILY, (Reported) Entered as Reported by: PARAMJIT BARLOW on 07/08/20 145 Ondansetron HCl (Ondansetron HCl) 8 Mg Tablet, 8 MG PO BID PRN for NAUSEA/VOMITING-1ST LINE, (Reported) Entered as Reported by: PARAMJIT BARLOW on 07/08/20 145 Oxycodone HCl (Oxycodone HCl) 10 Mg Tablet, 10 MG PO Q4H PRN for PAIN-SEVERE, (Reported) Entered as Reported by: MARY KING on 01/10/19946 Last Action: Last Taken Edited Palbociclib (Ibrance) 125 Mg Capsule, 125 MG PO UD, (Reported) Entered as Reported by: MARY KING on 01/10/19955 Polyethylene Glycol 3350 (Miralax) 17 Gm Powd.pack, 17 GM PO DAILY, (Reported) Entered as Reported by: PARAMJIT BARLOW on 07/08/20 145 Review of Systems Review of Systems Constitutional: No fever; malaise, weakness EENTM: no symptoms reported Respiratory: no symptoms reported Cardiovascular: no symptoms reported Gastrointestinal: loss of appetite Genitourinary: no symptoms reported Musculoskeletal: muscle weakness Skin: other (wound on right buttock ) Psychiatric/Neurological: No Symptoms Reported Hematologic/Lymphatic: No Symptoms Reported Immunological/Allergic: no symptoms reported (COURTNEY TOMLINSON APRN) Past Gfggbsw-Kknhal-Vtiyuc Hx Patient Social History Tobacco Use?: No Substance use?: No Alcohol Use?: No Pt feels they are or have been: No (COURTNEY TOMLINSON APRN) Seasonal Allergies Seasonal Allergies: No (COURTNEY TOMLINSON APRN) Past Medical History Surgery/Hospitalization HX: BREAST CA STAGE 4 Surgeries: Yes (LEFT BREAST BIOPSY 10/2018) Breast Respiratory: No Cardiac: No Neurological: No Genitourinary: No Gastrointestinal: Yes Musculoskeletal: Yes (BACK PAIN--FROM BONE METS) Endocrine: No HEENT: No Cancer: Yes Bone, Breast Did You Recieve Any Treatments: Yes What Type of Treatment Did You: Chemotherapy, Radiation Psychosocial: No Integumentary: No Blood Disorders: No (COURTNEY TOMLINSON APRN) Family Medical History Cardiovascular disease 19 FATHER Completed stroke 19 MOTHER Heart Disease, Stroke (COURTNEY TOMLINSON APRN) Physical Exam Vital Signs Vital Signs - First Documented 12/15/21 12/15/21 16:00 18:05 Temp 36.2 Pulse 79 Resp 18 B/P (MAP) 182/63 (102) Pulse Ox 96 O2 Delivery Room Air (CHESTER DYER MD) Vital Signs Capillary Refill : Less Than 3 Seconds (COURTNEY TOMLINSON APRN) Height, Weight, BMI Height: 5'5.00" Weight: 136lbs. 4.0oz. 61.742013zw; 19.00 BMI Method:Stated General Appearance: No Apparent Distress, WD/WN, Chronically ill, Thin Eyes: Bilateral Eye Normal Inspection, Bilateral Eye PERRL, Bilateral Eye EOMI HEENT: PERRL/EOMI, Normal ENT Inspection, Pharynx Normal; No Moist Mucous Membranes (dry) Neck: Full Range of Motion, Normal Inspection Respiratory: Lungs Clear, Normal Breath Sounds, No Accessory Muscle Use Cardiovascular: Regular Rate, Rhythm, Systolic Murmur Gastrointestinal: Normal Bowel Sounds, Non Tender, Soft; No Distended, No Guarding Back: Normal Inspection, No Vertebral Tenderness Extremity: Normal Range of Motion, Slow Capillary Refill Neurologic/Psychiatric: Alert, Oriented x3, No Motor/Sensory Deficits, Other (generalized weakness ) Skin: Warm/Dry, Pallor, Other (quarter size stage 2 wound on right medial buttock. No discharge or erythema noted to surrounding tissue. ) Lymphatic: No Adenopathy (COURTNEY TOMLINSON APRN) Focused Exam Lactate Level 12/15/21 17:00: Lactic Acid Level 1.39 (CHESTER DYER MD) Lactic Acid Level Laboratory Tests Test 12/15/21 17:00 Lactic Acid Level 1.39 MMOL/L (0.50-2.00) (CHESTER DYER MD) Progress/Results/Core Measures Suspected Sepsis SIRS Temperature: Pulse: 79 Respiratory Rate: 18 Laboratory Tests 12/15/21 16:10: White Blood Count 4.5 Blood Pressure 182 /63 Mean: 102 12/15/21 17:00: Lactic Acid Level 1.39 Laboratory Tests 12/15/21 16:10: Creatinine 1.00, Platelet Count 213, Total Bilirubin 0.5 12/15/21 17:00: INR Comment 1.0 (COURTNEY TOMLINSON APRN) Results/Orders Lab Results Laboratory Tests Test 12/15/21 16:10 12/15/21 16:46 12/15/21 17:00 Range/Units White Blood Count 4.5 4.3-11.0 10^3/uL Red Blood Count 4.05 3.80-5.11 10^6/uL Hemoglobin 12.2 11.5-16.0 g/dL Hematocrit 38 35-52 % Mean Corpuscular Volume 93 80-99 fL Mean Corpuscular Hemoglobin 30 25-34 pg Mean Corpuscular Hemoglobin Concent 32 32-36 g/dL Red Cell Distribution Width 13.9 10.0-14.5 % Platelet Count 213 130-400 10^3/uL Mean Platelet Volume 11.5 9.0-12.2 fL Immature Granulocyte % (Auto) 0 % Neutrophils (%) (Auto) 66 42-75 % Lymphocytes (%) (Auto) 19 12-44 % Monocytes (%) (Auto) 5 0-12 % Eosinophils (%) (Auto) 8 0-10 % Basophils (%) (Auto) 2 0-10 % Neutrophils # (Auto) 3.0 1.8-7.8 10^3/uL Lymphocytes # (Auto) 0.8 L 1.0-4.0 10^3/uL Monocytes # (Auto) 0.2 0.0-1.0 10^3/uL Eosinophils # (Auto) 0.4 H 0.0-0.3 10^3/uL Basophils # (Auto) 0.1 0.0-0.1 10^3/uL Immature Granulocyte # (Auto) 0.0 0.0-0.1 10^3/uL Neutrophils % (Manual) 62 % Lymphocytes % (Manual) 22 % Monocytes % (Manual) 7 % Eosinophils % (Manual) 7 % Basophils % (Manual) 2 % Blood Morphology Comment NORMAL Sodium Level 141 135-145 MMOL/L Potassium Level 4.0 3.6-5.0 MMOL/L Chloride Level 103 98-107 MMOL/L Carbon Dioxide Level 22 21-32 MMOL/L Anion Gap 16 H 5-14 MMOL/L Blood Urea Nitrogen 19 H 7-18 MG/DL Creatinine 1.00 0.60-1.30 MG/DL Estimat Glomerular Filtration Rate 57 BUN/Creatinine Ratio 19 Glucose Level 113 H 70-105 MG/DL Calcium Level 10.2 H 8.5-10.1 MG/DL Corrected Calcium 9.9 8.5-10.1 MG/DL Total Bilirubin 0.5 0.1-1.0 MG/DL Aspartate Amino Transf (AST/SGOT) 26 5-34 U/L Alanine Aminotransferase (ALT/SGPT) 15 0-55 U/L Alkaline Phosphatase 46 40-136 U/L Total Protein 7.4 6.4-8.2 GM/DL Albumin 4.4 3.2-4.5 GM/DL Urine Color YELLOW Urine Clarity CLEAR Urine pH 6.0 5-9 Urine Specific [place] 1.025 H 1.016-1.022 Urine Protein NEGATIVE NEGATIVE Urine Glucose (UA) NEGATIVE NEGATIVE Urine Ketones NEGATIVE NEGATIVE Urine Nitrite NEGATIVE NEGATIVE Urine Bilirubin NEGATIVE NEGATIVE Urine Urobilinogen 0.2 < = 1.0 MG/DL Urine Leukocyte Esterase NEGATIVE NEGATIVE Urine RBC (Auto) NEGATIVE NEGATIVE Urine RBC NONE /HPF Urine WBC 0-2 /HPF Urine Squamous Epithelial Cells RARE /HPF Urine Crystals NONE /LPF Urine Bacteria TRACE /HPF Urine Casts PRESENT /LPF Urine Hyaline Casts RARE /LPF Urine Mucus NEGATIVE /LPF Urine Culture Indicated NO Prothrombin Time 13.7 12.2-14.7 SEC INR Comment 1.0 0.8-1.4 Activated Partial Thromboplast Time 28 24-35 SEC Lactic Acid Level 1.39 0.50-2.00 MMOL/L (CHESTER DYER MD) Vital Signs/I&O 12/15/21 12/15/21 16:00 18:05 Temp 36.2 Pulse 79 50 Resp 18 18 B/P (MAP) 182/63 (102) 145/50 Pulse Ox 96 96 O2 Delivery Room Air (CHESTER DYER MD) Vital Signs/I&O Capillary Refill : Less Than 3 Seconds (COURTNEY TOMLINSON APRN) Blood Pressure Mean: 102 Progress Note : Progress Note Patient examined and in no acute distress. She is thin, weak, pale, vital signs are stable however with her on Ibrance we will go ahead and initiate sepsis work-up. Labs and imaging reviewed all are unremarkable. Clinically appears dehydrated. Reviewed findings with Dr. Herrmann we will go ahead and admit for gentle hydration and generalized weakness. (COURTNEY TOMLINSON APRN) Diagnostic Imaging Diagonstic Imaging: Xray Plain Films/CT/US/NM/MRI: chest Comments [facility], [place] NAME: MOAR HANNA [facility] REC#: [id number] PT STATUS: REG ER : 1940 PHYSICIAN: COURTNEY TOMLINSON APRN ADMIT DATE: 12/15/21/ER Signed Date of Exam:12/15/21 CHEST 1 VIEW, AP/PA ONLY EXAM: CHEST 1 VIEW, AP/PA ONLY. INDICATION: Sepsis. COMPARISON: 07/21/2020. FINDINGS: Normal heart size and central pulmonary vascularity. No focal pulmonary opacity. No pleural effusion or pneumothorax. Linear atelectasis or scarring in the left mid lung. No acute osseous findings. IMPRESSION: Linear atelectasis or scarring in the left mid lung. Chest is otherwise unremarkable. Dictated by: Dictated on workstation # [id number] Dict: 12/15/21 1640 Trans: 12/15/21 1658 [id number] Interpreted by: BRADLEY CATHERINE MD Electronically signed by: BRADLEY CATHERINE MD 12/15/21 1658 (COURTNEY TOMLINSON APRN) Departure Communication (Admissions) Time/Spoke to Admitting Phy: 17:40 Dr. Herrmann (COURTNEY TOMLINSON APRN) Impression Primary Impression: Generalized weakness Additional Impression: Dehydration Disposition: ADMITTED INPATIENT Condition: Stable Admissions Decision to Admit Reason: Admit from ER (General) Decision to Admit/Date: Dec 15, 2021 Time/Decision to Admit Time: 17:25 (COURTNEY TOMLINSON APRN) Departure-Patient Inst. Decision time for Depature: 17:50 (COURTNEY TOMLINSON APRN) Referrals: ISIDRO HERRMANN DO (PCP/Family) Primary Care Physician ATTENDING PHYSICIAN NOTE: I was physically present as attending physician in the emergency department during the care of this patient, but I was not directly involved in the decision making or delivery of care for this patient. (CHESTER DYER MD) Copy Copies To 1: ISIDRO HERRMANN STORMY D APRN Dec 15, 2021 16:31 CHESTER DYER MD Dec 16, 2021 06:20
[2021-12-15 16:37] LABS: BASOPHILS # (AUTO) 0.1 10^3/uL (0.0-0.1); BASOPHILS % (AUTO) 2 % (0-10); EOSINOPHILS # (AUTO) 0.4 10^3/uL (0.0-0.3); EOSINOPHILS % (AUTO) 8 % (0-10); HEMATOCRIT 38 % (35-52); HEMOGLOBIN 12.2 g/dL (11.5-16.0); LYMPHOCYTES # (AUTO) 0.8 10^3/uL (1.0-4.0); LYMPHOCYTES % (AUTO) 19 % (12-44); MEAN CORPUSCULAR HEMOGLOBIN 30 pg (25-34); MEAN CORPUSCULAR HGB CONC 32 g/dL (32-36); MEAN CORPUSCULAR VOLUME 93 fL (80-99); MEAN PLATELET VOLUME 11.5 fL (9.0-12.2); MONOCYTES # (AUTO) 0.2 10^3/uL (0.0-1.0); MONOCYTES % (AUTO) 5 % (0-12); NEUTROPHILS % (AUTO) 66 % (42-75); PLATELET COUNT 213 10^3/uL (130-400); WHITE BLOOD COUNT 4.5 10^3/uL (4.3-11.0)
[2021-12-15 16:42] LABS: ALBUMIN 4.4 GM/DL (3.2-4.5)
--- NOTE | 2021-12-15 16:42 | Diagnostic Imaging Report ---
EXAM: CHEST 1 VIEW, AP/PA ONLY. INDICATION: Sepsis. COMPARISON: 07/21/2020. FINDINGS: Normal heart size and central pulmonary vascularity. No focal pulmonary opacity. No pleural effusion or pneumothorax. Linear atelectasis or scarring in the left mid lung. No acute osseous findings. IMPRESSION: Linear atelectasis or scarring in the left mid lung. Chest is otherwise unremarkable. Dictated by: Dictated on workstation # [id number]
[2021-12-15 16:43] LABS: CALCIUM 10.2 MG/DL (8.5-10.1)
[2021-12-15 16:44] LABS: TOTAL PROTEIN 7.4 GM/DL (6.4-8.2)
[2021-12-15 16:46] LABS: BILIRUBIN,TOTAL 0.5 MG/DL (0.1-1.0)
[2021-12-15 16:51] LABS: BILIRUBIN,URINE NEGATIVE (NEGATIVE); CLARITY,URINE CLEAR; COLOR,URINE YELLOW; GLUCOSE, URINE (UA) NEGATIVE (NEGATIVE); KETONES,URINE NEGATIVE (NEGATIVE); LEUKOCYTE ESTERASE ,URINE NEGATIVE (NEGATIVE); NITRITE,URINE NEGATIVE (NEGATIVE); PROTEIN,URINE NEGATIVE (NEGATIVE)
[2021-12-15 17:00] LABS: BACTERIA,URINE TRACE /HPF; HYALINE CASTS, URINE RARE /LPF; SQUAMOUS EPITHELIAL CELL,UR RARE /HPF; WBC,URINE 0-2 /HPF
[2021-12-15 17:13] LABS: BASOPHILS % (MANUAL) 2 %; EOSINOPHILS % (MANUAL) 7 %; LYMPHOCYTES % (MANUAL) 22 %; MONOCYTES % (MANUAL) 7 %; NEUTROPHILS % (MANUAL) 62 %; RBC MORPH NORMAL
[2021-12-15 17:21] LABS: PROTHROMBIN TIME PATIENT 13.7 SEC (12.2-14.7)
[2021-12-15] MEDS ORDERED: ONDANSETRON 4 MG (ZOFRAN) ORAL DISSOLVE TAB PO PRN (19:00)
[2021-12-15] MEDS ORDERED: MELATONIN 3 MG TABLET PO PRN (19:00)
[2021-12-15] MEDS ORDERED: CALCIUM CARBONATE 500 MG (TUMS) TAB.CHEW PO PRN (19:00)
[2021-12-15] MEDS ORDERED: ANTACID SUSP 30 ML UDC (MYLANTA) PO PRN (19:00)
[2021-12-15] MEDS ORDERED: MILK OF MAGNESIA 400 MG/5 ML 30 ML UDC PO PRN (19:00)
[2021-12-15] MEDS ORDERED: diphenhydrAMINE 25 MG TAB (BENADRYL) PO PRN (19:00)
[2021-12-15] MEDS ORDERED: ONDANSETRON 4 MG/2 ML (SDV) Z0FRAN IV PRN (19:00)
[2021-12-15] MEDS ORDERED: polyethylene glycoL POWDER 17 GM (MIRALAX) PACK PO PRN (19:00)
[2021-12-15] MEDS ORDERED: BISACODYL 10 MG SUPP (DULCOLAX) PR PRN (19:00)
[2021-12-15] MEDS ORDERED: diphenhydrAMINE 50 MG/ML INJ (BENADRYL) IVP PRN (19:00)
[2021-12-15] MEDS ORDERED: morphine INJ 4 MG/ML 1 ML (VIAL/SYRINGE) IV PRN ×2 (19:00→19:15)
[2021-12-15] MEDS ORDERED: ACETAMINOPHEN 325 MG TABLET PO PRN (19:00)
[2021-12-15] MEDS ORDERED: LACTULOSE SYRUP 10GM/15ML (ENULOSE) 30ML UDC PO PRN (19:00)
[2021-12-15] MEDS ORDERED: ALPRAZolam 0.25 MG (XANAX) TAB PO PRN (19:15)
[2021-12-15] MEDS ORDERED: amLODIPine 5 MG (NORVASC) TAB PO ONE (19:15)
[2021-12-15] MEDS ORDERED: cloNIDine 0.1 MG (CATAPRES) TAB PO PRN (19:15)
[2021-12-15 19:25] VITALS: BP 200/70
[2021-12-15] MEDS ORDERED: CHOL20003 PO (19:35)
[2021-12-15] MEDS ORDERED: MORP-68 PO (19:35)
[2021-12-15] MEDS ORDERED: ALPR0.25 PO (19:35)
[2021-12-15] MEDS ORDERED: OMEP40CA6 PO (19:35)
[2021-12-15] MEDS ORDERED: amLODIPine 5 MG (NORVASC) TAB ONE (19:37)
[2021-12-15] MEDS: SENNOSIDES 8.6 MG (SENOKOT) TAB PO SCH (21:51)
[2021-12-15] MEDS: DOCUSATE SODIUM 100 MG (COLACE) CAP PO SCH (21:51)
[2021-12-15] MEDS: ENOXAPARIN INJECTION 30 MG/0.3 ML SYR SC SCH (21:52)
[2021-12-15] MEDS: NS IV 1000 ML 1,000 ML IV SCH (21:52)
[2021-12-15 23:48] VITALS: BP 170/85
[2021-12-16] MEDS: hydrALAZINE (APRESOLINE) 25 MG TAB PO PRN (04:02)
[2021-12-16 04:14] VITALS: BP 175/70
[2021-12-16 06:12] LABS: BASOPHILS # (AUTO) 0.1 10^3/uL (0.0-0.1); BASOPHILS % (AUTO) 3 % (0-10); EOSINOPHILS # (AUTO) 0.3 10^3/uL (0.0-0.3); EOSINOPHILS % (AUTO) 11 % (0-10); HEMATOCRIT 38 % (35-52); HEMOGLOBIN 12.7 g/dL (11.5-16.0); LYMPHOCYTES # (AUTO) 0.7 10^3/uL (1.0-4.0); LYMPHOCYTES % (AUTO) 23 % (12-44); MEAN CORPUSCULAR HEMOGLOBIN 31 pg (25-34); MEAN CORPUSCULAR HGB CONC 33 g/dL (32-36); MEAN CORPUSCULAR VOLUME 92 fL (80-99); MEAN PLATELET VOLUME 10.9 fL (9.0-12.2); MONOCYTES # (AUTO) 0.2 10^3/uL (0.0-1.0); MONOCYTES % (AUTO) 5 % (0-12); NEUTROPHILS # (AUTO) 1.8 10^3/uL (1.8-7.8); NEUTROPHILS % (AUTO) 59 % (42-75); PLATELET COUNT 211 10^3/uL (130-400); WHITE BLOOD COUNT 3.1 10^3/uL (4.3-11.0)
[2021-12-16 06:18] LABS: ALBUMIN 4.2 GM/DL (3.2-4.5); POTASSIUM 3.8 MMOL/L (3.6-5.0)
[2021-12-16 06:19] LABS: CALCIUM 9.9 MG/DL (8.5-10.1)
[2021-12-16 06:23] LABS: BILIRUBIN,TOTAL 0.7 MG/DL (0.1-1.0)
[2021-12-16 06:24] LABS: CREATININE SERUM 0.79 MG/DL (0.60-1.30)
[2021-12-16 07:36] VITALS: BP 154/71
--- NOTE | 2021-12-16 09:42 | Wound Care Assessment ---
Wound Care Assessment Date Seen by Provider: Dec 16, 2021 Time Seen by Provider: 10:29 Chief Complaint R medial gluteal pressure ulcer stage II HPI 81yo F with history of metastatic stage 4 breast cancer to bone presents with a stage 2 R medial gluteal pressure ulcer that opened sometime this past weekend. Per ED note, she noticed some pain and a "bumpy area" on her gluteal area 5 days ago. She lives at home with her son-in-law Soren and was brought to the hospital for her pressure ulcer, weakness, and not eating. Today she is sitting up comfortably on her chair and reports generalized weakness. Also some "burning" pain in her legs which she attributes to an expected side effect of her cancer treatments which is managed with Dr. Cabrera. She did not report any pain around her pressure ulcer. Denies any fever, chills, nausea, vomiting, or diarrhea. Denies any history of diabetes, smoking, or alcohol use. Luisa notes that she has lost a significant amount of weight in the last several years (since breast cancer diagnosis). She is quite debilitated with significant muscular weakness and immobility as a result. She does have poor po intake but is already taking protein shakes regularly. Past Medical History: Denies Diabetes Type I, Denies Diabetes Type II, Denies Heart Disease Smoking Status: Never a Smoker Alcohol Use: Denies Use Review of Systems General: No Chills, No Night Sweats, No Fatigue; Appetite (Poor appetite) HEENT: No Head Aches, No Visual Changes, No Ear Pain Pulmonary: No Dyspnea, No Cough, No Pleuritic Chest Pain Cardiovascular: No: Chest Pain, Palpitations, Paroxysmal Noc. Dyspnea Gastrointestinal: No: Nausea, Vomiting Genitourinary: No Dysuria, No Frequency, No Incontinence Musculoskeletal: No: neck pain, shoulder pain, hand pain Neurological: Weakness; No: Change in speech, Confusion Exam Vital Signs Date Time Temp Pulse Resp B/P (MAP) Pulse Ox O2 Delivery O2 Flow Rate FiO2 12/16/21 07:36 36.6 67 18 154/71 (98) 95 Room Air Capillary Refill : Less Than 3 Seconds General Appearance: no apparent distress, thin HEENT: PERRL/EOMI Neck: non-tender, full range of motion, supple, normal inspection Cardiovascular: regular rate, rhythm, no edema, no gallop, systolic murmur Respiratory: chest non-tender, lungs clear, normal breath sounds, no respiratory distress, no accessory muscle use Gastrointestinal: non tender, soft Back: normal inspection Extremities: non-tender Neurologic/Psychiatric: alert, oriented x 3 Skin: normal color, warm/dry Skin Problem Location: other (R medial gluteal area) Skin Character: lesion Results Laboratory Tests 12/15/21 16:10: White Blood Count 4.5, Red Blood Count 4.05, Hemoglobin 12.2, Hematocrit 38, Mean Corpuscular Volume 93, Mean Corpuscular Hemoglobin 30, Mean Corpuscular Hemoglobin Concent 32, Red Cell Distribution Width 13.9, Platelet Count 213, Mean Platelet Volume 11.5, Immature Granulocyte % (Auto) 0, Neutrophils (%) (Auto) 66, Lymphocytes (%) (Auto) 19, Monocytes (%) (Auto) 5, Eosinophils (%) (Auto) 8, Basophils (%) (Auto) 2, Neutrophils # (Auto) 3.0, Lymphocytes # (Auto) 0.8L, Monocytes # (Auto) 0.2, Eosinophils # (Auto) 0.4H, Basophils # (Auto) 0.1, Immature Granulocyte # (Auto) 0.0, Neutrophils % (Manual) 62, Lymphocytes % (Manual) 22, Monocytes % (Manual) 7, Eosinophils % (Manual) 7, Basophils % (Manual) 2, Blood Morphology Comment NORMAL, Sodium Level 141, Potassium Level 4.0, Chloride Level 103, Carbon Dioxide Level 22, Anion Gap 16H, Blood Urea Nitrogen 19H, Creatinine 1.00, Estimat Glomerular Filtration Rate 57, BUN/Creatinine Ratio 19, Glucose Level 113H, Calcium Level 10.2H, Corrected Calcium 9.9, Total Bilirubin 0.5, Aspartate Amino Transf (AST/SGOT) 26, Alanine Aminotransferase (ALT/SGPT) 15, Alkaline Phosphatase 46, Total Protein 7.4, Albumin 4.4 12/15/21 16:46: Urine Color YELLOW, Urine Clarity CLEAR, Urine pH 6.0, Urine Specific [place] 1.025H, Urine Protein NEGATIVE, Urine Glucose (UA) NEGATIVE, Urine Ketones NEGATIVE, Urine Nitrite NEGATIVE, Urine Bilirubin NEGATIVE, Urine Urobilinogen 0.2, Urine Leukocyte Esterase NEGATIVE, Urine RBC (Auto) NEGATIVE, Urine RBC NONE, Urine WBC 0-2, Urine Squamous Epithelial Cells RARE, Urine Crystals NONE, Urine Bacteria TRACE, Urine Casts PRESENT, Urine Hyaline Casts RARE, Urine Mucus NEGATIVE, Urine Culture Indicated NO 12/15/21 17:00: Prothrombin Time 13.7, INR Comment 1.0, Activated Partial Thromboplast Time 28, Lactic Acid Level 1.39 12/16/21 06:00: White Blood Count 3.1L, Red Blood Count 4.16, Hemoglobin 12.7, Hematocrit 38, Mean Corpuscular Volume 92, Mean Corpuscular Hemoglobin 31, Mean Corpuscular Hemoglobin Concent 33, Red Cell Distribution Width 13.9, Platelet Count 211, Mean Platelet Volume 10.9, Immature Granulocyte % (Auto) 0, Neutrophils (%) (Auto) 59, Lymphocytes (%) (Auto) 23, Monocytes (%) (Auto) 5, Eosinophils (%) (Auto) 11H, Basophils (%) (Auto) 3, Neutrophils # (Auto) 1.8, Lymphocytes # (Auto) 0.7L, Monocytes # (Auto) 0.2, Eosinophils # (Auto) 0.3, Basophils # (Auto) 0.1, Immature Granulocyte # (Auto) 0.0, Sodium Level 142, Potassium Level 3.8, Chloride Level 106, Carbon Dioxide Level 23, Anion Gap 13, Blood Urea Nitrogen 13, Creatinine 0.79, Estimat Glomerular Filtration Rate 75, BUN/Crea tinine Ratio 16, Glucose Level 99, Calcium Level 9.9, Corrected Calcium 9.7, Total Bilirubin 0.7, Aspartate Amino Transf (AST/SGOT) 24, Alanine Aminotransferase (ALT/SGPT) 15, Alkaline Phosphatase 44, Total Protein 7.0, Albumin 4.2 Wound Assessment Measurement: 1.5 x 2.7 x 0.1 cm Stage II Drainage: Medium and serosanguinous Margin: Flat Granulation: Small and pink Necrotic: Small (slough) Epithelialization: small Assessment/Plan/Dx Assessment: R medial gluteal pressure ulcer stage II Breast cancer stage [address] Cabrera Generalized weakness Dehydration Plan: Border foam Waffle cushion Roll q2h ppx Zinc Oxide barrier ointment Supervisory-Addendum Brief Verification & Attestation Participated in pt care: history, MDM, physical Personally performed: exam, history, MDM, supervision of care Care discussed with: Medical Student Procedures: n/a Results interpretation: Verified all documentation MYAH Parada MD Dec 16, 2021 09:42 EDWIN BEATTY MD Dec 16, 2021 11:54
[2021-12-16] MEDS: DOCUSATE SODIUM 100 MG (COLACE) CAP PO SCH ×2 (10:15→21:37)
[2021-12-16] MEDS: SENNOSIDES 8.6 MG (SENOKOT) TAB PO SCH ×2 (10:16→21:37)
[2021-12-16] MEDS: amLODIPine 5 MG (NORVASC) TAB PO SCH (10:16)
[2021-12-16] MEDS: NS IV 1000 ML 1,000 ML IV SCH (10:16)
[2021-12-16] MEDS: LOSARTAN 100 MG (COZAAR) TABLET PO SCH (10:16)
[2021-12-16] MEDS: hydrALAZINE (APRESOLINE) 25 MG TAB PO SCH ×3 (10:16→21:37)
--- NOTE | 2021-12-16 11:02 | History & Physical ---
WILI PACKER 12/16/21 1102: History of Present Illness History of Present Illness Reason for visit/HPI CC: pain in the coccyx region HPI: The patient is an 81 YO female with a past medical history of stage IV breast cancer with metasisis to the bone, who is admitted to the hospital due to a pressure ulcer of the coccyx region, dehydration, weakness. The patient reports that she started feeling pain in the coccyx region last , which worsened over the weekend. She reports the pain in the coccyx region caused her to present to the ER yesterday. ER reports that she also had the chief complaint of weakness, however the patient denied to me that she went to the ER due to weakness. The patient does mentions she has been having a poor memory for the past week or two. She also mentions a poor appetite, which comes and goes due to her cancer treatments. The patient's chemo therapy is managed by Dr. Cabrera. The patient today was in good spirits, and she was receiving IV fluids. She reports her pain in the coccyx region is not present at this time. Date of Admission Dec 15, 2021 at 18:42 Date Seen by a Provider: Dec 16, 2021 Time Seen by a Provider: 09:00 I consulted on this patient on 12/16/21 10:50 Attending Physician Lashonda Herrmann DO Admitting Physician Lashonda Herrmann DO Consult Allergies and Home Medications Allergies Coded Allergies: No Known Drug Allergies (Unverified , 11/30/18) Patient Home Medication List Alprazolam (Xanax) 0.25 Mg Tablet, 0.25 MG PO DAILY PRN for ANXIETY, (Reported) Entered as Reported by: MENDY RINCON on 12/15/21 193 Last Action: Held Cholecalciferol (Vitamin D3) (Vitamin D3) 50 Mcg (2000 Unit) Capsule, 50 MCG PO BID, (Reported) Entered as Reported by: PARAMJIT BARLOW on 12/16/21 1456 Last Action: Converted Letrozole (Letrozole) 2.5 Mg Tablet, 2.5 MG PO DAILY, (Reported) Entered as Reported by: MARY KING on 01/10/19 0984 Last Action: Continued Morphine Sulfate (Morphine Sulfate ER) 15 Mg Tablet.er, 15 MG PO BID, (Reported) Entered as Reported by: MENDY RINCON on 12/15/211934 Last Action: Continued Omeprazole (Omeprazole) 40 Mg Capsule.dr, 40 MG PO DAILY, (Reported) Entered as Reported by: MENDY RINCON on 12/15/211934 Last Action: Converted Oxycodone HCl (Oxycodone HCl) 10 Mg Tablet, 10 MG PO Q4- 6H PRN for PAIN-SEVERE (8-10), (Reported) Entered as Reported by: MARY KING on 01/10/19 0951 Last Action: Converted Palbociclib (Ibrance) 75 Mg Capsule, 75 MG PO 2100, (Reported) Entered as Reported by: PARAMJIT BARLOW on 12/16/21 145 Last Action: Converted Discontinued Medications Cefuroxime Axetil (Cefuroxime) 250 Mg Tablet, 250 MG PO BID Discontinued Reason: Duplicate Order Prescribed by: JOSE ALFREDO GARCÍA on 07/21/202013 Last Action: Discontinued Cholecalciferol (Vitamin D3) (Vitamin D3) 25 Mcg Tablet, 25 MCG PO DAILY, (Reported) Discontinued Reason: Prescription changed Entered as Reported by: PARAMJIT BARLOW on 07/08/20 1504 Cholecalciferol (Vitamin D3) (Vitamin D3) 50 Mcg (2000 Unit) Capsule, 50 MCG PO DAILY, (Reported) Discontinued Reason: No Longer Taking Entered as Reported by: MENDY RINCON on 12/15/211934 Last Action: Discontinued Diphenhydramine HCl (Benadryl) 25 Mg Capsule, 50 MG PO HS PRN for ALLERGY SYMPTOMS, (Reported) Discontinued Reason: No Longer Taking Entered as Reported by: PARAMJIT BARLOW on 07/08/20 1504 Last Action: Discontinued Ondansetron HCl (Ondansetron HCl) 8 Mg Tablet, 8 MG PO DAILY, (Reported) Discontinued Reason: No Longer Taking Entered as Reported by: PARAMJIT BARLOW on 07/08/20 145 Last Action: Discontinued Ondansetron HCl (Ondansetron HCl) 8 Mg Tablet, 8 MG PO BID PRN for NA USEA/VOMITING-1ST LINE, (Reported) Discontinued Reason: No Longer Taking Entered as Reported by: PARAMJIT BARLOW on 07/08/20 1453 Last Action: Discontinued Palbociclib (Ibrance) 125 Mg Capsule, 125 MG PO UD, (Reported) Discontinued Reason: Duplicate Order Entered as Reported by: MARY KING on 01/10/19 0956 Last Action: Discontinued Polyethylene Glycol 3350 (Miralax) 17 Gm Powd.pack, 17 GM PO DAILY, (Reported) Discontinued Reason: No Longer Taking Entered as Reported by: PARAMJIT BARLOW on 07/08/20 4384 Last Action: Discontinued Past Eczhwwb-Hlwznc-Ltjbti Hx Patient Social History Tobacco Use?: No Smoking Status: Never a Smoker Substance use?: No Alcohol Use?: No Pt feels they are or have been: No Seasonal Allergies Seasonal Allergies: No Current Status Advance Directives: No Communicates: Verbally Primary Language: Filipino Preferred Spoken Language: Filipino Is interpretation needed?: No Sensory deficits: Vision impairment Implanted or Applied Medical D: None Past Medical History Surgeries: Breast Bone, Breast Did You Recieve Any Treatments: Yes What Type of Treatment Did You: Chemotherapy, Radiation Blood Disorders: No Family Medical History Cardiovascular disease 19 FATHER Completed stroke 19 MOTHER Heart Disease, Stroke Review of Systems Constitutional: No diaphoresis, No fever EENTM: No blurred vision, No double vision Respiratory: No cough, No short of breath Cardiovascular: No chest pain, No edema, No palpitations Gastrointestinal: No abdominal pain, No constipation, No diarrhea Skin: other (pressure ulcer in coccyx region ) Psychiatric/Neurological: Denies Anxiety, Denies Depressed, Denies Emotional Problems Physical Exam Vital Signs Vital Signs - First Documented 12/15/21 12/15/21 16:00 18:05 Temp 36.2 Pulse 79 Resp 18 B/P (MAP) 182/63 (102) Pulse Ox 96 O2 Delivery Room Air Capillary Refill : Less Than 3 Seconds Height, Weight, BMI Height: 5'5.00" Weight: 136lbs. 4.0oz. 61.266237cn; 18.19 BMI Method:Stated General Appearance: No Apparent Distress, Chronically ill, Thin Eyes: Bilateral Eye Normal Inspection, Bilateral Eye PERRL, Bilateral Eye EOMI HEENT: PERRL/EOMI, TMs Normal, Normal ENT Inspection, Pharynx Normal, Moist Mucous Membranes Neck: Full Range of Motion, Normal Inspection, Non Tender, Supple Respiratory: Chest Non Tender, Lungs Clear, Normal Breath Sounds, No Accessory Muscle Use, No Respiratory Distress Cardiovascular: Regular Rate, Rhythm, No Edema, Systolic Murmur Gastrointestinal: Normal Bowel Sounds, No Organomegaly, No Pulsatile Mass, Non Tender, Soft Extremity: Normal Inspection, Normal Range of Motion, Non Tender, No Calf Tenderness, No Pedal Edema Neurologic/Psychiatric: Alert, Oriented x3, No Motor/Sensory Deficits Skin: Normal Color, Warm/Dry Lymphatic: No Adenopathy Assessment/Plan Assessment and Plan Assessment: Pressure ulcer of coccyx region Weakness Debility Dehydration Breast Cancer Stage IV with metastasis to the bone Plan: Pressure ulcer of coccyx region Appreciate wound care who were consulted for pressure ulcer management. PRN pain management for pain secondary to the pressure ulcer. Monitor for evidence of infection. Weakness Debility PT/OT. Possible inpatient rehab. Dehydration IV fluids Breast Cancer Stage IV with metastasis to the bone Continue chemotherapy under the direction of Dr. Cabrera. LASHONDA HERRMANN DO 12/17/21 0526: History of Present Illness History of Present Illness Reason for visit/HPI Chief complaint: Weakness History of present illness: This is an 81-year-old white female clinic patient of [facility] with stage IV breast cancer with metastasis who presented to the ER with generalized weakness and pain in the pressure ulcer of her coccyx. The decision was made to place in observation status for IV fluids and supportive care with wound care evaluation. Patient does feel better since admission to the hospital. PT and OT will be ordered. Allergies and Home Medications Allergies Coded Allergies: No Known Drug Allergies (Unverified , 11/30/18) Patient Home Medication List Home Medication List Reviewed: Yes Alprazolam (Xanax) 0.25 Mg Tablet, 0.25 MG PO DAILY PRN for ANXIETY, (Reported) Entered as Reported by: MENDY RINCON on 12/15/211934 Last Action: Held Cholecalciferol (Vitamin D3) (Vitamin D3) 50 Mcg (2000 Unit) Capsule, 50 MCG PO BID, (Reported) Entered as Reported by: PARAMJIT BARLOW on 12/16/21 9175 Last Action: Converted Letrozole (Letrozole) 2.5 Mg Tablet, 2.5 MG PO DAILY, (Reported) Entered as Reported by: MARY KING on 01/10/19 1638 Last Action: Continued Morphine Sulfate (Morphine Sulfate ER) 15 Mg Tablet.er, 15 MG PO BID, (Reported) Entered as Reported by: MENDY RINCON on 12/15/211934 Last Action: Continued Omeprazole (Omeprazole) 40 Mg Capsule.dr, 40 MG PO DAILY, (Reported) Entered as Reported by: MENDY RINCON on 12/15/211934 Last Action: Converted Oxycodone HCl (Oxycodone HCl) 10 Mg Tablet, 10 MG PO Q4- 6H PRN for PAIN-SEVERE (8-10), (Reported) Entered as Reported by: MARY KING on 01/10/19 0923 Last Action: Converted Palbociclib (Ibrance) 75 Mg Capsule, 75 MG PO 2100, (Reported) Entered as Reported by: PARAMJIT BARLOW on 12/16/21 145 Last Action: Converted Discontinued Medications Cefuroxime Axetil (Cefuroxime) 250 Mg Tablet, 250 MG PO BID Discontinued Reason: Duplicate Order Prescribed by: JOSE ALFREDO GARCÍA on 07/21/202013 Last Action: Discontinued Cholecalciferol (Vitamin D3) (Vitamin D3) 25 Mcg Tablet, 25 MCG PO DAILY, ( Reported) Discontinued Reason: Prescription changed Entered as Reported by: PARAMJIT BARLOW on 07/08/20 1504 Cholecalciferol (Vitamin D3) (Vitamin D3) 50 Mcg (2000 Unit) Capsule, 50 MCG PO DAILY, (Reported) Discontinued Reason: No Longer Taking Entered as Reported by: MENDY RINCON on 12/15/211934 Last Action: Discontinued Diphenhydramine HCl (Benadryl) 25 Mg Capsule, 50 MG PO HS PRN for ALLERGY SYMPTOMS, (Reported) Discontinued Reason: No Longer Taking Entered as Reported by: PARAMJIT BARLOW on 07/08/20 1504 Last Action: Discontinued Ondansetron HCl (Ondansetron HCl) 8 Mg Tablet, 8 MG PO DAILY, (Reported) Discontinued Reason: No Longer Taking Entered as Reported by: PARAMJIT BARLOW on 07/08/20 145 Last Action: Discontinued Ondansetron HCl (Ondansetron HCl) 8 Mg Tablet, 8 MG PO BID PRN for NAUSEA/VOMITING-1ST LINE, (Reported) Discontinued Reason: No Longer Taking Entered as Reported by: PARAMJIT BARLOW on 07/08/20 145 Last Action: Discontinued Palbociclib (Ibrance) 125 Mg Capsule, 125 MG PO UD, (Reported) Discontinued Reason: Duplicate Order Entered as Reported by: MARY KING on 01/10/19 0953 Last Action: Discontinued Polyethylene Glycol 3350 (Miralax) 17 Gm Powd.pack, 17 GM PO DAILY, (Reported) Discontinued Reason: No Longer Taking Entered as Reported by: PARAMJIT BARLOW on 07/08/20 8541 Last Action: Discontinued Past Ylcsoca-Xdiyvg-Tjtpfe Hx Patient Social History Marrital Status: Employed/Student: retired Smoking Status: Never a Smoker Past Medical History High Cholesterol, Hypertension Breast Did You Recieve Any Treatments: Yes What Type of Treatment Did You: Chemotherapy Family Medical History Cardiovascular disease 19 FATHER Completed stroke 19 MOTHER Review of Systems Constitutional: see HPI, malaise, weakness EENTM: no symptoms reported Respiratory: no symptoms reported Cardiovascular: no symptoms reported Gastrointestinal: no symptoms reported Musculoskeletal: back pain, joint pain Skin: no symptoms reported Psychiatric/Neurological: No Symptoms Reported All Other Systems Reviewed Negative Unless Noted: Yes Physical Exam General Appearance: No Apparent Distress, WD/WN, Chronically ill, Thin Eyes: Bilateral Eye Normal Inspection, Bilateral Eye PERRL, Bilateral Eye EOMI HEENT: PERRL/EOMI, Normal ENT Inspection, Pharynx Normal Neck: Full Range of Motion, Normal Inspection, Non Tender, Supple, Carotid Bruit Respiratory: Chest Non Tender, Lungs Clear, Normal Breath Sounds, No Accessory Muscle Use, No Respiratory Distress Cardiovascular: Regular Rate, Rhythm, No Edema, No Gallop, No JVD, Normal Peripheral Pulses, Systolic Murmur Gastrointestinal: Normal Bowel Sounds, No Organomegaly, No Pulsatile Mass, Non Tender, Soft Back: Normal Inspection, No CVA Tenderness, No Vertebral Tenderness, Decreased Range of Motion Extremity: Normal Capillary Refill, Normal Inspection, Normal Range of Motion, Non Tender, No Calf Tenderness, No Pedal Edema Neurologic/Psychiatric: Alert, Oriented x3, No Motor/Sensory Deficits, Normal 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, 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 as 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 Skin: Normal Color, Warm/Dry Lymphatic: No Adenopathy Assessment/Plan Assessment and Plan Assessment: Weakness Coccyx pressure ulcer Stage IV breast cancer with metastasis Plan: Restart home meds PT OT IV fluids Wound care Problems: (1) Generalized weakness Status: Acute (2) Dehydration Status: Acute (3) Metastatic breast cancer Status: Chronic (4) Physical debility Status: Acute Admission Diagnosis Admission Status: Observation Supervisory-Addendum Brief Verification & Attestation Participated in pt care: history, MDM, physical Personally performed: exam, history, MDM, supervision of care Care discussed with: Medical Student Procedures: n/a Results interpretation: Verified all documentation Verification and Attestation of Medical Student E/M Service A medical student performed and documented this service in my presence. I reviewed and verified all information documented by the medical student and made modifications to such information, when appropriate. I personally performed the physical exam and medical decision making. Lashonda Herrmann, Dec 17, 2021,05:26 WILI PACKER Dec 16, 2021 11:02 LASHONDA HERRMANN DO Dec 17, 2021 05:26
--- NOTE | 2021-12-16 11:14 | Occupational Therapy Eval ---
OT Evaluation-General/PLF Medical Diagnosis Admission Date Dec 15, 2021 at 18:42 Medical Diagnosis: dehydration, generalized weakness Onset Date: Dec 15, 2021 Therapy Diagnosis Therapy Diagnosis: weakness Height/Weight Height (Feet): 5 Height (Inches): 5.00 Weight (Pounds): 136 Weight (Ounces): 4.0 Precautions Precautions/Isolations: Fall Prevention, Standard Precautions Referral Physician: Nithin Referral Reason: Evaluation/Treatment Medical History Additional Medical History stage 4 breast cancer, metastatic to bones. Current History ED c/o poor appetite, weakness, new open wound on coccyx Social History Home: Single Level Current Living Status: Alone Pt's son checks on her regularly and is with her most of the day. ADL-Prior Level of Function SCALE: Activities may be completed with or without assistive devices. 8-Scxmbwrtcm-dehznav completes the activity by him/herself with no assistance from a helper. 5-Set-up or Clean-up Assistance-helper sets up or cleans up; patient completes activity. [place] assists only prior to or following the activity. 4-Supervision or Touching Assistance-helper provides verbal cues and/or touching/steadying and/or contact guard assistance as patient completes activity. Assistance may be provided throughout the activity or intermittently. 3-Partial/Moderate Assistance-helper does LESS THAN HALF the effort. [place] lifts, holds or supports trunk or limbs, but provides less than half the effort. 2-Substantial/Maximal Assistance-helper does MORE THAN HALF the effort. [place] lifts or holds trunk or limbs and provides more than half the effort. 6-Bhixycbjx-atamnn does ALL the effort. Patient does none of the effort to complete the activity. Or, the assistance of 2 or more helpers is required for the patient to complete the activity. If activity was not attempted, code reason: 7-Patient Refused. 9-Not Applicable-not attempted and the patient did not perform the activity before the current illness, exacerbation or injury. 10-Not Attempted due to Environmental Limitations-(lack of equipment, weather restraints, etc.). 88-Not Attempted due to Medical Conditions or Safety Concerns. ADL PLOF Comments Pt reports IND with ADLs and functional mobility using FWW or cane depending on how she is feeling. She only completes sponge baths, is able to dress and toilet herself. Her son assists with cooking meals, pt does not use the stove, but able to use toaster and microwave. Pt's son checks on her and stays with her a lot during the days. Self Care: Needed Some Help Functional Cognition: Independent OT Current Status Subjective Pt in recliner, agreeable to OT Tx. Pt states she is tired, focused on pain medication, but doesn't want the medication until closer to lunch when she takes it at home. Pt indicates she isn't too active at home. Mental Status/Objective Patient Orientation: Person, Place, Situation Attachments: IV Current Upper Extremity ROM WFL Upper Extremity Strength grossly 3/5 ADL-Treatment Eating (QC): 6 (IND per pt report.) Oral Hygiene (QC): 3 (assist to rinse dentures, pt able to use oral sponge with set up.) Toileting Hygiene (QC): 4 (Per nursing report, SBA with urination) Other Treatments Pt in recliner, agreeable to OT Tx. Pt provided information about PLOF and home set up. She is not very active at home, but was able to take care of herself. She does not take showers, instead only performs sponge baths. Her son checks on her regularly and assists with meals. Pt declined all out of chair activities, declining ADLs, and declines mobility due to fatigue/pain. Pt agreeable to co mpleting oral care. Min A provided with cleaning upper dentures due to pt refusal of getting out of chair at this time, pt able to use oral swab with set up assistance. Pt declined all other activities at this time. Post tx, pt in recliner, call light in reach and all needs met. Education OT Patient Education: Correct positioning, Energy conservation, Modified ADL techniques, Progress toward Goal/Update tx plan, Purpose of tx/functional activities, Rehab process Teaching Recipient: Patient Teaching Methods: Discussion Response to Teaching: Verbalize Understanding OT Drug Safety Scientist Goals Drug Safety Scientist Goals Time Frame: December 25, 2021 Eating (QC): 6 Oral Hygiene (QC): 5 Toileting Hygiene (QC): 4 Shower/Bathe Self (QC): 4 (sponge bath) Upper Body Dressing (QC): 5 Lower Body Dressing (QC): 4 On/Off Footwear (QC): 4 Additional Goals: 1-Demonstrate ADL Tasks, 2-Verbalize Understanding, 3- ImproveStrength/Gabriel 1=Demonstrate adherence to instructed precautions during ADL tasks. 2=Patient will verbalize/demonstrate understanding of assistive devices/modifications for ADL. 3=Patient will improve strength/tolerance for activity to enable patient to perform ADL's. OT Education/Plan Problem List/Assessment Assessment: Decreased Activ Tolerance, Decreased UE Strength, Impaired Funct Balance, Impaired I ADL's, Impaired Self-Care Skills Discharge Recommendations Plan/Recommendations: Continue POC Therapy Discharge Recommendati: Other, See Comments (SNF), Home & Family Comment OT recommends home with family support vs SNF due to pt having difficulty tolerating intensive therapy due to fatigue and pain. Treatment Plan/Plan of Care Patient would benefit from OT for education, treatment and training to promote i ndependence in ADL's, mobility, safety and/or upper extremity function for ADL's. Plan of Care: ADL Retraining, Functional Mobility, UE Funct Exercise/Act Treatment Duration: December 25, 2021 Frequency: 3 times per week (3-5 times per week) Estimated Hrs Per Day: .25 hour per day Rehab Potential: Guarded Time/GCodes Start Time: 10:16 Stop Time: 10:30 Total Time Billed (hr/min): 14 Billed Treatment Time 1, SATHYA BOLES OT Dec 16, 2021 11:14
[2021-12-16 11:31] VITALS: BP 132/76
--- NOTE | 2021-12-16 11:52 | Physical Therapy Evaluation ---
PT Evaluation-General Medical Diagnosis Admission Date Dec 15, 2021 at 18:42 Medical Diagnosis: dehydration, generalized weakness Onset Date: Dec 15, 2021 Therapy Diagnosis Therapy Diagnosis: Impaired mobility, transfers, strength Height/Weight Height (Feet): 5 Height (Inches): 5.00 Weight (Pounds): 136 Weight (Ounces): 4.0 Precautions Precautions/Isolations: Fall Prevention, Standard Precautions Weight Bear Status Right Lower Extremity: Right Full Weight Bearing Left Lower Extremity: Left Full Weight Bearing Referral Physician: Nithin Reason for Referral: Evaluation/Treatment Medical History Additional Medical History stage 4 breast cancer, metastatic to bones. Current History ED c/o poor appetite, weakness, new open wound on coccyx Reviewed History: Yes Social History Home: Single Level Current Living Status: Alone Patient has son that checks on her frequently Prior Prior Level of Function SCALE: Activities may be completed with or without assistive devices. 5-Csakaupryf-rdspzfy completes the activity by him/herself with no assistance from a helper. 5-Set-up or Clean-up Assistance-helper sets up or cleans up; patient completes activity. [place] assists only prior to or following the activity. 4-Supervision or Touching Assistance-helper provides verbal cues and/or touching/steadying and/or contact guard assistance as patient completes activity. Assistance may be provided throughout the activity or intermittently. 3-Partial/Moderate Assistance-helper does LESS THAN HALF the effort. [place] lifts, holds or supports trunk or limbs, but provides less than half the effort. 2-Substantial/Maximal Assistance-helper does MORE THAN HALF the effort. [place] lifts or holds trunk or limbs and provides more than half the effort. 8-Zjtodrswm-rkxoyq does ALL the effort. Patient does none of the effort to complete the activity. Or, the assistance of 2 or more helpers is required for the patient to complete the activity. If activity was not attempted, code reason: 7-Patient Refused. 9-Not Applicable-not attempted and the patient did not perform the activity before the current illness, exacerbation or injury. 10-Not Attempted due to Environmental Limitations-(lack of equipment, weather restraints, etc.). 88-Not Attempted due to Medical Conditions or Safety Concerns. Bed Mobility: 6 Transfers (B,C,W/C): 6 Gait: 6 Stairs: 6 Indoor Mobility (Ambulation): Independent Stairs: Independent Prior Devices Use: Other-see list below Prior Device Use: Four-wheeled walker, Cane PT Evaluation-Current Subjective Patient was in bathroom upon arrival. PT helped her to transfer back into chair. Patient reports that her legs and feet feel achy from not having been able to move as much as she did at home. Patient also says that she has been really cold. She was compliant to treatment. Pain Pain Description: Ache Comment: Achy pain at feet, and upper and lower legs. Pt/Family Goals To be independent at home Objective Patient Orientation: Person, Place, Situation Attachments: IV ROM/Strength ROM Lower Extremities WFL bilaterally Strength Lower Extremities L LE (hip flexion 4/5, knee extension 4/5, Knee flexion 4/5, DF 4/5); R LE (hip flexion 4/5, knee extension 4/5, Knee flexion 4/5, DF 4/5) Integumentary/Posture Bowel Incontinence: No Bladder Incontinence: No Sensory Vision: Functional Hearing: Functional Sensation Right Lower Extremit: Intact Sensation Left Lower Extremity: Intact Transfers Sit to Stand (QC): 4 Toilet Transfer (QC): 4 Gait Does the Patient Walk?: Yes Mode of Locomotion: Walk Anticipated Mode of Locomotion: Walk Walk 10 feet (QC): 4 Walk 50 ft with 2 Turns(QC): 4 Distance: 50' Gait Assistive Device: FWW Comments/Gait Description small short step length, very slumped posture Wheelchair Training Does the Pt Use a Wheelchair?: No Type of Wheelchair: N/A Balance Sitting Static: Good Sitting Dynamic: Good Standing Static: Good Standing Dynamic: Good Treatment Ambulation, LE strengthening (LAQ, ankle pumps) Assessment/Needs Patient was able to ambulate with CGA for about 50' before feeling nauseous and needing to rest. She stated that walking made her legs feel better. Pt was left in chair with call light, tray, and all needs met. Rehab Potential: Fair PT Supervisor Power [employer]actor Goals Fpc Goals PT Fpc Goals Time Frame: December 23, 2021 Roll Left & Right (QC): 6 Sit to Lying (QC): 6 Lying-Sitting on Side/Bed(QC): 6 Sit to Stand (QC): 6 Chair/Xgv-cg-Marjq Xfer(QC): 6 Walk 10 feet (QC): 6 Walk 50ft with 2 Turns (QC): 6 Walk 150 ft (QC): 6 PT Plan Problem List Problem List: Activity Tolerance, Functional Strength, Safety, Balance, Gait, Bed Mobility, ROM Treatment/Plan Treatment Plan: Continue Plan of Care Treatment Plan: Bed Mobility, Education, Functional Activity Gabriel, Functional Strength, Gait, Safety, Therapeutic Exercise, Transfers Treatment Duration: December 23, 2021 Frequency: 6 times per week Estimated Hrs Per Day: .25 hour per day Patient and/or Family Agrees t: Yes Safety Risks/Education Patient Education: Gait Training, Transfer Techniques, Correct Positioning, Safety Issues Teaching Recipient: Patient Teaching Methods: Discussion Response to Teaching: Verbalize Understanding Discharge Recommendations Plan To work on functional strength to be independent at home Therapy Discharge Recommendati: Scheduled Assistance, Home & Family, Post Acute PT Time/GCodes Time In: 1102 Time Out: 1119 Total Billed Treatment Time: 17 Total Billed Treatment 1 visit EVM 17min JERZY VILLA PT Dec 16, 2021 11:52
[2021-12-16] MEDS ORDERED: PALB75CA PO (14:56)
[2021-12-16] MEDS ORDERED: CHOL20002 PO (14:56)
[2021-12-16 16:20] VITALS: BP 150/65
[2021-12-16] MEDS: ENOXAPARIN INJECTION 30 MG/0.3 ML SYR SC SCH (18:46)
[2021-12-16 20:25] VITALS: BP 156/67
[2021-12-16] MEDS ORDERED: NS IV 1000 ML 1,000 ML IV SCH (20:31)
[2021-12-16] MEDS ORDERED: PALBOCICLIB 75 MG PO SCH (21:00)
[2021-12-16] MEDS: morphine ER 15 MG (MS CONTIN) TAB PO SCH (21:37)
[2021-12-17] VITALS (7 sets, daily range): BP systolic 130–175; BP diastolic 54–72
[2021-12-17] MEDS: hydrALAZINE (APRESOLINE) 25 MG TAB PO PRN (03:24)
[2021-12-17 05:02] LABS: BASOPHILS # (AUTO) 0.1 10^3/uL (0.0-0.1); BASOPHILS % (AUTO) 2 % (0-10); EOSINOPHILS # (AUTO) 0.1 10^3/uL (0.0-0.3); EOSINOPHILS % (AUTO) 3 % (0-10); HEMATOCRIT 33 % (35-52); HEMOGLOBIN 10.9 g/dL (11.5-16.0); LYMPHOCYTES # (AUTO) 0.5 10^3/uL (1.0-4.0); LYMPHOCYTES % (AUTO) 17 % (12-44); MEAN CORPUSCULAR HEMOGLOBIN 31 pg (25-34); MEAN CORPUSCULAR HGB CONC 34 g/dL (32-36); MEAN CORPUSCULAR VOLUME 91 fL (80-99); MEAN PLATELET VOLUME 10.8 fL (9.0-12.2); MONOCYTES # (AUTO) 0.2 10^3/uL (0.0-1.0); MONOCYTES % (AUTO) 6 % (0-12); NEUTROPHILS # (AUTO) 2.2 10^3/uL (1.8-7.8); NEUTROPHILS % (AUTO) 72 % (42-75); PLATELET COUNT 212 10^3/uL (130-400); WHITE BLOOD COUNT 3.1 10^3/uL (4.3-11.0)
[2021-12-17 05:24] LABS: ALBUMIN 3.6 GM/DL (3.2-4.5); BILIRUBIN,TOTAL 0.5 MG/DL (0.1-1.0); CALCIUM 8.9 MG/DL (8.5-10.1); CREATININE SERUM 0.72 MG/DL (0.60-1.30); POTASSIUM 3.6 MMOL/L (3.6-5.0); TOTAL PROTEIN 6.1 GM/DL (6.4-8.2)
[2021-12-17] MEDS ORDERED: PANTOPRAZOLE 40 MG (PROTONIX) TAB PO SCH (07:00)
[2021-12-17] MEDS ORDERED: HYPOCHLOROUS ACID/NaCl (VASHE) 250 ML IR SCH (09:00)
[2021-12-17] MEDS ORDERED: VITAMIN D3 25 MCG (1,000 UNITS) TABLET PO SCH (09:00)
[2021-12-17] MEDS ORDERED: LETROZOLE 2.5 MG (FEMARA) TAB PO SCH (09:00)
[2021-12-17] MEDS: morphine ER 15 MG (MS CONTIN) TAB PO SCH (09:36)
[2021-12-17] MEDS: hydrALAZINE (APRESOLINE) 25 MG TAB PO SCH ×2 (09:37→13:37)
[2021-12-17] MEDS: LOSARTAN 100 MG (COZAAR) TABLET PO SCH (09:37)
[2021-12-17] MEDS: amLODIPine 5 MG (NORVASC) TAB PO SCH (09:37)
[2021-12-17] MEDS: DOCUSATE SODIUM 100 MG (COLACE) CAP PO SCH (09:38)
[2021-12-17] MEDS: SENNOSIDES 8.6 MG (SENOKOT) TAB PO SCH (09:41)
--- NOTE | 2021-12-17 10:11 | Physical Therapy Daily Note ---
PT Daily Note-Current Subjective Pt agrees to PT. Mental Status Patient Orientation: Normal For Age Attachments: IV Transfers SCALE: Activities may be completed with or without assistive devices. 8-Gpsnjeldla-sqahpms completes the activity by him/herself with no assistance from a helper. 5-Set-up or Clean-up Assistance-helper sets up or cleans up; patient completes activity. [place] assists only prior to or following the activity. 4-Supervision or Touching Assistance-helper provides verbal cues and/or touch ing/steadying and/or contact guard assistance as patient completes activity. Assistance may be provided throughout the activity or intermittently. 3-Partial/Moderate Assistance-helper does LESS THAN HALF the effort. [place] lifts, holds or supports trunk or limbs, but provides less than half the effort. 2-Substantial/Maximal Assistance-helper does MORE THAN HALF the effort. [place] lifts or holds trunk or limbs and provides more than half the effort. 5-Vkqhbsnqe-urfpjj does ALL the effort. Patient does none of the effort to complete the activity. Or, the assistance of 2 or more helpers is required for the patient to complete the activity. If activity was not attempted, code reason: 7-Patient Refused. 9-Not Applicable-not attempted and the patient did not perform the activity before the current illness, exacerbation or injury. 10-Not Attempted due to Environmental Limitations-(lack of equipment, weather restraints, etc.). 88-Not Attempted due to Medical Conditions or Safety Concerns. Roll Left & Right (QC): 3 Lying to Sitting/Side of Bed(Q: 4 Sit to Stand (QC): 4 Chair/Yyj-ja-Ngwes Xfer(QC): 4 Weight Bearing Right Lower Extremity: Right Full Weight Bearing Left Lower Extremity: Left Full Weight Bearing Gait Training Does the Patient Walk?: Yes Distance: 20' Walk 10 feet (QC): 4 Gait Persons Needed: 1 Gait Assistive Device: FWW slow and short steps Wheelchair Training Does the Pt Use a Wheelchair?: No Assessment Current Status: Fair Progress Pt amb. in room to the chair and requests not to walk any farther and be done with PT for the day. PT Senior Living Goals Senior Living Goals PT Senior Living Goals Time Frame: December 23, 2021 Roll Left & Right (QC): 6 Sit to Lying (QC): 6 Lying-Sitting on Side/Bed(QC): 6 Sit to Stand (QC): 6 Chair/Uix-nk-Aefka Xfer(QC): 6 Walk 10 feet (QC): 6 Walk 50ft with 2 Turns (QC): 6 Walk 150 ft (QC): 6 PT Plan Treatment/Plan Treatment Plan: Continue Plan of Care Treatment Plan: Bed Mobility, Education, Functional Activity Gabriel, Functional Strength, Gait, Safety, Therapeutic Exercise, Transfers Treatment Duration: December 23, 2021 Frequency: 6 times per week Estimated Hrs Per Day: .25 hour per day Patient and/or Family Agrees t: Yes Time/GCodes Time In: 948 Time Out: 1003 Total Billed Treatment Time: 15 Total Billed Treatment 1, FA (15 min) SYLVIA ABRAMS PT Dec 17, 2021 10:11
--- NOTE | 2021-12-17 10:19 | Occupational Ther Daily Note ---
OT Current Status-Daily Note Subjective Pt in bed, nurse present to change dressing on coccyx wound. Pt agreeable to minimal OT today, stating she just wants to be left alone to rest. Mental Status/Objective Patient Orientation: Person, Place, Situation Attachments: IV ADL-Treatment Therapy Code Descriptions/Definitions Functional [place] Measure: 0=Not Assessed/NA 4=Minimal Assistance 1=Total Assistance 5=Supervision or Setup 2=Maximal Assistance 6=Modified [place] 3=Moderate Assistance 7=Complete IndependenceSCALE: Activities may be completed with or without assistive devices. 5-Luqkyzbkwc-grgvgqz completes the activity by him/herself with no assistance from a helper. 5-Set-up or Clean-up Assistance-helper sets up or cleans up; patient completes activity. [place] assists only prior to or following the activity. 4-Supervision or Touching Assistance-helper provides verbal cues and/or touching/steadying and/or contact guard assistance as patient completes activity. Assistance may be provided throughout the activity or intermittently. 3-Partial/Moderate Assistance-helper does LESS THAN HALF the effort. [place] lifts, holds or supports trunk or limbs, but provides less than half the effort. 2-Substantial/Maximal Assistance-helper does MORE THAN HALF the effort. [place] lifts or holds trunk or limbs and provides more than half the effort. 5-Zbgfzmwhv-iykjqb does ALL the effort. Patient does none of the effort to complete the activity. Or, the assistance of 2 or more helpers is required for the patient to complete the activity. If activity was not attempted, code reason: 7-Patient Refused. 9-Not Applicable-not attempted and the patient did not perform the activity before the current illness, exacerbation or injury. 10-Not Attempted due to Environmental Limitations-(lack of equipment, weather restraints, etc.). 88-Not Attempted due to Medical Conditions or Safety Concerns. Other Treatment Pt in bed, OT assisted nursing with rolling R/L and clothing management in order to change dressing on buttocks, min A with rolling. Pt able to bridge through LEs to raise buttocks off of bed in order to manage pants up, min A provided. Pt transferred supine to sit EOB, SBA, then walked around the bed to transfer to recliner using FWW, CGA. Pt declines any further ADLs, exercises, or mobility, stating she would like to be left alone to rest and doesn't want therapy to bother her again today. Post tx, pt up in recliner, call light in reach and all needs met. Education OT Patient Education: Correct positioning, Energy conservation, Modified ADL techniques, Progress toward Goal/Update tx plan, Purpose of tx/functional activities, Rehab process Teaching Recipient: Patient Teaching Methods: Discussion Response to Teaching: Verbalize Understanding OT Sr. Operations Manager Goals Snf Goals Time Frame: December 25, 2021 Eating (QC): 6 Oral Hygiene (QC): 5 Toileting Hygiene (QC): 4 Shower/Bathe Self (QC): 4 (sponge bath) Upper Body Dressing (QC): 5 Lower Body Dressing (QC): 4 On/Off Footwear (QC): 4 Additional Goals: 1-Demonstrate ADL Tasks, 2-Verbalize Understanding, 3- ImproveStrength/[place]riel 1=Demonstrate adherence to instructed precautions during ADL tasks. 2=Patient will verbalize/demonstrate understanding of assistive devices/modifications for ADL. 3=Patient will improve strength/tolerance for activity to enable patient to perform ADL's. OT Education/Plan Problem List/Assessment Assessment: Decreased Activ Tolerance, Decreased UE Strength, Impaired Funct B alance, Impaired I ADL's, Impaired Self-Care Skills Discharge Recommendations Plan/Recommendations: Continue POC Treatment Plan/Plan of Care Patient would benefit from OT for education, treatment and training to promote independence in ADL's, mobility, safety and/or upper extremity function for ADL's. Plan of Care: ADL Retraining, Functional Mobility, UE Funct Exercise/Act Treatment Duration: December 25, 2021 Frequency: 3 times per week (3-5 times per week) Estimated Hrs Per Day: .25 hour per day Rehab Potential: Fair Time/GCodes Start Time: 09:45 Stop Time: 10:03 Total Time Billed (hr/min): 18 Billed Treatment Time 1, SATHYA SOTO OT Dec 17, 2021 10:19
[2021-12-17] MEDS ORDERED: AMLO-250 PO (11:18)
[2021-12-17] MEDS ORDERED: HYDR-3923 PO (11:18)
[2021-12-17] MEDS ORDERED: CLN.1T PO (11:18)
[2021-12-17] MEDS ORDERED: LOSA100T57 PO (11:18)
--- NOTE | 2021-12-17 11:19 | Discharge Summary ---
Diagnosis/Chief Complaint Date of Admission Dec 15, 2021 at 18:42 Date of Discharge Discharge Date: Dec 17, 2021 Discharge Diagnosis Assessment: Pressure ulcer of coccyx region Weakness Debility Dehydration Breast Cancer Stage IV with metastasis to the bone Plan: Pressure ulcer of coccyx region Appreciate wound care who were consulted for pressure ulcer management. PRN pain management for pain secondary to the pressure ulcer. Monitor for evidence of infection. Weakness Debility PT/OT. Possible inpatient rehab. Dehydration IV fluids Breast Cancer Stage IV with metastasis to the bone Continue chemotherapy under the direction of Dr. Cabrera. Reason Hospital Visit Chief complaint: Weakness History of present illness: This is an 81-year-old white female clinic patient of [facility] with stage IV breast cancer with metastasis who presented to the ER with generalized weakness and pain in the pressure ulcer of her coccyx. The decision was made to place in observation status for IV fluids and supportive care with wound care evaluation. Patient does feel better since admission to the hospital. PT and OT will be ordered. Discharge Summary Discharge Physical Examination Allergies: Coded Allergies: No Known Drug Allergies (Unverified , 11/30/18) Vitals & I&Os Vital Signs Date Time Temp Pulse Resp B/P (MAP) Pulse Ox O2 Delivery O2 Flow Rate FiO2 12/17/21 16:50 36.4 64 18 130/60 96 Room Air General Appearance: Alert, Oriented X3, Cooperative Respiratory: Clear to Auscultation Cardiovascular: Regular Rate Psych/Mental Status: Mental Status NL Hospital Course Was the Problem List Reviewed?: Yes Brief Hospital Course: Patient was admitted on 12/15/21 and discharged on 12/17/21. Patient was admitted from the ED to the 4th floor. She presented to the ED for complaints of weakness and pain in the coccyx region. WBC count in the ED was 4.5 on 12/15/21. Chest X ray in the ED showed linear atelectasis or scarring of the left mid lung. Patient received IV fluids for dehydration, Zofran 4mg PO Q6Hr PRN for nausea, and her home medications while admitted. Her pain was managed with oxycodone 10mg PO. Wound care was consulted for management of her pressure ulcer of the coccyx. PT/OT was ordered, which the patient initially complied with, but refused to participate in this morning of 12/17/21. The patient's son who is her DPOA was spoken to this morning on the phone and it was decided that the patient will be discharged home on hospice care. Ibrance therapy will be discontinued for her cancer treatment. Dr. Cabrera manages the patient's stage IV breast cancer with bone mets. This summary does not include the entirety of the patient's visit and is only a short description of pertinent lab values and information. For the complete hospital course, please refer to the patient's chart. Date of Admission: 12/15/21 Date of Discharge: 12/17/21 Attending Physician: Dr. Lashonda Weller DO Admission Diagnosis: Weakness, pressure ulcer of coccyx Discharge Diagnosis: Breast cancer requiring hospice care Consultations: Wound care, PT/OT WILI PACKER Dec 17, 2021 11:41 Labs (last 24 hrs) Laboratory Tests 12/15/21 16:10: White Blood Count 4.5, Red Blood Count 4.05, Hemoglobin 12.2, Hematocrit 38, Mean Corpuscular Volume 93, Mean Corpuscular Hemoglobin 30, Mean Corpuscular Hemoglobin Concent 32, Red Cell Distribution Width 13.9, Platelet Count 213, Mean Platelet Volume 11.5, Immature Granulocyte % (Auto) 0, Neutrophils (%) (Auto) 66, Lymphocytes (%) (Auto) 19, Monocytes (%) (Auto) 5, Eosinophils (%) (Auto) 8, Basophils (%) (Auto) 2, Neutrophils # (Auto) 3.0, Lymphocytes # (Auto) 0.8L, Monocytes # (Auto) 0.2, Eosinophils # (Auto) 0.4H, Basophils # (Auto) 0.1, Immature Granulocyte # (Auto) 0.0, Neutrophils % (Manual) 62, Lymphocytes % (Manual) 22, Monocytes % (Manual) 7, Eosinophils % (Manual) 7, Basophils % (Manual) 2, Blood Morphology Comment NORMAL, Sodium Level 141, Potassium Level 4.0, Chloride Level 103, Carbon Dioxide Level 22, Anion Gap 16H, Blood Urea Nitrogen 19H, Creatinine 1.00, Estimat Glomerular Filtration Rate 57, BUN/Creatinine Ratio 19, Glucose Level 113H, Calcium Level 10.2H, Corrected Calcium 9.9, Total Bilirubin 0.5, Aspartate Amino Transf (AST/SGOT) 26, Alanine Aminotransferase (ALT/SGPT) 15, Alkaline Phosphatase 46, Total Protein 7.4, Albumin 4.4 12/15/21 16:46: Urine Color YELLOW, Urine Clarity CLEAR, Urine pH 6.0, Urine Specific [place] 1.025H, Urine Protein NEGATIVE, Urine Glucose (UA) NEGATIVE, Urine Ketones NEGATIVE, Urine Nitrite NEGATIVE, Urine Bilirubin NEGATIVE, Urine Urobilinogen 0.2, Urine Leukocyte Esterase NEGATIVE, Urine RBC (Auto) NEGATIVE, Urine RBC NONE, Urine WBC 0-2, Urine Squamous Epithelial Cells RARE, Urine Crystals NONE, Urine Bacteria TRACE, Urine Casts PRESENT, Urine Hyaline Casts RARE, Urine Mucus NEGATIVE, Urine Culture Indicated NO 12/15/21 17:00: Prothrombin Time 13.7, INR Comment 1.0, Activated Partial Thromboplast Time 28, Lactic Acid Level 1.39 12/16/21 06:00: White Blood Count 3.1L, Red Blood Count 4.16, Hemoglobin 12.7, Hematocrit 38, Mean Corpuscular Volume 92, Mean Corpuscular Hemoglobin 31, Mean Corpuscular Hemoglobin Concent 33, Red Cell Distribution Width 13.9, Platelet Count 211, Mean Platelet Volume 10.9, Immature Granulocyte % (Auto) 0, Neutrophils (%) (Auto) 59, Lymphocytes (%) (Auto) 23, Monocytes (%) (Auto) 5, Eosinophils (%) (Auto) 11H, Basophils (%) (Auto) 3, Neutrophils # (Auto) 1.8, Lymphocytes # (Auto) 0.7L, Monocytes # (Auto) 0.2, Eosinophils # (Auto) 0.3, Basophils # (Auto) 0.1, Immature Granulocyte # (Auto) 0.0, Sodium Level 142, Potassium Level 3.8, Chloride Level 106, Carbon Dioxide Level 23, Anion Gap 13, Blood Urea Nitrogen 13, Creatinine 0.79, Estimat Glomerular Filtration Rate 75, BUN/Creatinine Ratio 16, Glucose Level 99, Calcium Level 9.9, Corrected Calcium 9.7, Total Bilirubin 0.7, Aspartate Amino Transf (AST/SGOT) 24, Alanine Aminotransferase (ALT/SGPT) 15, Alkaline Phosphatase 44, Total Protein 7.0, Albumin 4.2 12/17/21 04:55: White Blood Count 3.1L, Red Blood Count 3.56L, Hemoglobin 10.9L, Hematocrit 33L, Mean Corpuscular Volume 91, Mean Corpuscular Hemoglobin 31, Mean Corpuscular Hemoglobin Concent 34, Red Cell Distribution Width 14.1, Platelet Count 212, Mean Platelet Volume 10.8, Immature Granulocyte % (Auto) 0, Neutrophils (%) (Auto) 72, Lymphocytes (%) (Auto) 17, Monocytes (%) (Auto) 6, Eosinophils (%) (Auto) 3, Basophils (%) (Auto) 2, Neutrophils # (Auto) 2.2, Lymphocytes # (Auto) 0.5L, Monocytes # (Auto) 0.2, Eosinophils # (Auto) 0.1, Basophils # (Auto) 0.1, Immature Granulocyte # (Auto) 0.0, Sodium Level 144, Potassium Level 3.6, Chloride Level 111H, Carbon Dioxide Level 19L, Anion Gap 14, Blood Urea Nitrogen 11, Creatinine 0.72, Estimat Glomerular Filtration Rate 84, BUN/Creatinine Ratio 15, Glucose Level 113H, Calcium Level 8.9, Corrected Calcium 9.2, Total Bilirubin 0.5, Aspartate Amino Transf (AST/SGOT) 22, Alanine Aminotransferase (ALT/SGPT) 9, Alkaline Phosphatase 36L, Total Protein 6.1L, Albumin 3.6 Microbiology 12/15/21 Blood Culture - Preliminary, Resulted No growth 12/15/21 Urine Culture - Final, Complete NO GROWTH Pending Labs Microbiology Date/Time Source Procedure Growth Status 12/15/21 17:00 Peripheral Rt Ac Blood Culture - Preliminary No growth Resulted 12/15/21 16:46 Urine Straight Cath, In/Out Urine Culture - Final NO GROWTH Complete 12/15/21 16:35 Peripheral Left Wrist Blood Culture - Preliminary No growth Resulted Laboratory Tests 12/15/21 16:10: White Blood Count 4.5, Red Blood Count 4.05, Hemoglobin 12.2, Hematocrit 38, Mean Corpuscular Volume 93, Mean Corpuscular Hemoglobin 30, Mean Corpuscular Hemoglobin Concent 32, Red Cell Distribution Width 13.9, Platelet Count 213, Mean Platelet Volume 11.5, Immature Granulocyte % (Auto) 0, Neutrophils (%) (Auto) 66, Lymphocytes (%) (Auto) 19, Monocytes (%) (Auto) 5, Eosinophils (%) (Auto) 8, Basophils (%) (Auto) 2, Neutrophils # (Auto) 3.0, Lymphocytes # (Auto) 0.8, Monocytes # (Auto) 0.2, Eosinophils # (Auto) 0.4, Basophils # (Auto) 0.1, Immature Granulocyte # (Auto) 0.0, Neutrophils % (Manual) 62, Lymphocytes % (Manual) 22, Monocytes % (Manual) 7, Eosinophils % (Manual) 7, Basophils % (Manual) 2, Blood Morphology Comment NORMAL, Sodium Level 141, Potassium Level 4.0, Chloride Level 103, Carbon Dioxide Level 22, Anion Gap 16, Blood Urea Nitrogen 19, Creatinine 1.00, Estimat Glomerular Filtration Rate 57, BUN/Creatinine Ratio 19, Glucose Level 113, Calcium Level 10.2, Corrected Calcium 9.9, Total Bilirubin 0.5, Aspartate Amino Transf (AST/SGOT) 26, Alanine Aminotransferase (ALT/SGPT) 15, Alkaline Phosphatase 46, Total Protein 7.4, Albumin 4.4 12/15/21 16:46: Urine Color YELLOW, Urine Clarity CLEAR, Urine pH 6.0, Urine Specific [place] 1.025, Urine Protein NEGATIVE, Urine Glucose (UA) NEGATIVE, Urine Ketones NEGATIVE, Urine Nitrite NEGATIVE, Urine Bilirubin NEGATIVE, Urine Urobilinogen 0.2, Urine Leukocyte Esterase NEGATIVE, Urine RBC (Auto) NEGATIVE, Urine RBC NONE, Urine WBC 0-2, Urine Squamous Epithelial Cells RARE, Urine Crystals NONE, Urine Bacteria TRACE, Urine Casts PRESENT, Urine Hyaline Casts RARE, Urine Mucus NEGATIVE, Urine Culture Indicated NO 12/15/21 17:00: Prothrombin Time 13.7, INR Comment 1.0, Activated Partial Thromboplast Time 28, Lactic Acid Level 1.39 12/16/21 06:00: White Blood Count 3.1, Red Blood Count 4.16, Hemoglobin 12.7, Hematocrit 38, Me an Corpuscular Volume 92, Mean Corpuscular Hemoglobin 31, Mean Corpuscular Hemoglobin Concent 33, Red Cell Distribution Width 13.9, Platelet Count 211, Mean Platelet Volume 10.9, Immature Granulocyte % (Auto) 0, Neutrophils (%) (Auto) 59, Lymphocytes (%) (Auto) 23, Monocytes (%) (Auto) 5, Eosinophils (%) (Auto) 11, Basophils (%) (Auto) 3, Neutrophils # (Auto) 1.8, Lymphocytes # (Au to) 0.7, Monocytes # (Auto) 0.2, Eosinophils # (Auto) 0.3, Basophils # (Auto) 0.1, Immature Granulocyte # (Auto) 0.0, Sodium Level 142, Potassium Level 3.8, Chloride Level 106, Carbon Dioxide Level 23, Anion Gap 13, Blood Urea Nitrogen 13, Creatinine 0.79, Estimat Glomerular Filtration Rate 75, BUN/Creatinine Ratio 16, Glucose Level 99, Calcium Level 9.9, Corrected Calcium 9.7, Total Bilirubin 0.7, Aspartate Amino Transf (AST/SGOT) 24, Alanine Aminotransferase (ALT/SGPT) 15, Alkaline Phosphatase 44, Total Protein 7.0, Albumin 4.2 12/17/21 04:55: White Blood Count 3.1, Red Blood Count 3.56, Hemoglobin 10.9, Hematocrit 33, Mean Corpuscular Volume 91, Mean Corpuscular Hemoglobin 31, Mean Corpuscular Hemoglobin Concent 34, Red Cell Distribution Width 14.1, Platelet Count 212, Mean Platelet Volume 10.8, Immature Granulocyte % (Auto) 0, Neutrophils (%) (Auto) 72, Lymphocytes (%) (Auto) 17, Monocytes (%) (Auto) 6, Eosinophils (%) (Auto) 3, Basophils (%) (Auto) 2, Neutrophils # (Auto) 2.2, Lymphocytes # (Auto) 0.5, Monocytes # (Auto) 0.2, Eosinophils # (Auto) 0.1, Basophils # (Auto) 0.1, Immature Granulocyte # (Auto) 0.0, Sodium Level 144, Potassium Level 3.6, Chloride Level 111, Carbon Dioxide Level 19, Anion Gap 14, Blood Urea Nitrogen 11, Creatinine 0.72, Estimat Glomerular Filtration Rate 84, BUN/Creatinine Ratio 15, Glucose Level 113, Calcium Level 8.9, Corrected Calcium 9.2, Total Bilirubin 0.5, Aspartate Amino Transf (AST/SGOT) 22, Alanine Aminotransferase (ALT/SGPT) 9, Alkaline Phosphatase 36, Total Protein 6.1, Albumin 3.6 Discharge Home Medications: Active Scripts Active Losartan Potassium 100 Mg Tablet 100 Mg PO DAILY Amlodipine Besylate 5 Mg Tablet 5 Mg PO DAILY Hydralazine HCl 25 Mg Tablet 25 Mg PO TID Clonidine HCl 0.1 Mg Tablet 0.1 Mg PO Q4H PRN Reported Vitamin D3 (Cholecalciferol (Vitamin D3)) 50 Mcg (2000 Unit) Capsule 50 Mcg PO BID Xanax (Alprazolam) 0.25 Mg Tablet 0.25 Mg PO DAILY PRN Omeprazole 40 Mg Capsule.dr 40 Mg PO DAILY Morphine Sulfate ER (Morphine Sulfate) 15 Mg Tablet.er 15 Mg PO BID Letrozole 2.5 Mg Tablet 2.5 Mg PO DAILY Oxycodone HCl 10 Mg Tablet 10 Mg PO Q4- 6H PRN Instructions to patient/family Please see electronic discharge instructions given to patient. Diagnosis/Problems Diagnosis/Problems (1) Generalized weakness Status: Acute (2) Dehydration Status: Acute (3) Metastatic breast cancer Status: Chronic (4) Physical debility Status: Acute LASHONDA WELLER DO Dec 17, 2021 11:19
--- NOTE | 2021-12-17 11:41 | Progress Note ---
WILI PACKER 12/17/21 1141: Progress Note Brief Hospital Course: Patient was admitted on 12/15/21 and discharged on 12/17/21. Patient was admitted from the ED to the 4th floor. She presented to the ED for complaints of weakness and pain in the coccyx region. WBC count in the ED was 4.5 on 12/15/21. Chest X ray in the ED showed linear atelectasis or scarring of the left mid lung. Patient received IV fluids for dehydration, Zofran 4mg PO Q6Hr PRN for nausea, and her home medications while admitted. Her pain was managed with oxycodone 10mg PO. Wound care was consulted for management of her pressure ulcer of the coccyx. PT/OT was ordered, which the patient initially complied with, but refused to participate in this morning of 12/17/21. The patient's son who is her DPOA was spoken to this morning on the phone and it was decided that the patient will be discharged home on hospice care. Ibrance therapy will be discontinued for her cancer treatment. Dr. Cabrera manages the patient's stage IV breast cancer with bone mets. This summary does not include the entirety of the patient's visit and is only a short description of pertinent lab values and information. For the complete hospital course, please refer to the patient's chart. Date of Admission: 12/15/21 Date of Discharge: 12/17/21 Attending Physician: Dr. Lashonda Weller DO Admission Diagnosis: Weakness, pressure ulcer of coccyx Discharge Diagnosis: Breast cancer requiring hospice care Consultations: Wound care, PT/OT LASHONDA WELLER DO 12/18/21 0545: Supervisory-Addendum Brief Verification & Attestation Participated in pt care: history, MDM, physical Personally performed: exam, history, MDM, supervision of care Care discussed with: Medical Student Procedures: n/a Results interpretation: Verified all documentation Verification and Attestation of Medical Student E/M Service A medical student performed and documented this service in my presence. I reviewed and verified all information documented by the medical student and made modifications to such information, when appropriate. I personally performed the physical exam and medical decision making. Lashonda Weller Dec 18, 2021,05:45 WILI PACKER Dec 17, 2021 11:41 LASHONDA WELLER DO Dec 18, 2021 05:45
--- NOTE | 2021-12-17 12:12 | Progress Note ---
Progress Note n/a WILI PACKER Dec 17, 2021 12:12
== END 2021-12-17 16:50 | disposition hospice, home (50) ==
LOC: EDUNIT# 15:42 → ER 15:45 → 4TH 18:42
PROVIDERS: ADMIT Internal Medicine; ATTEND Internal Medicine
DX: E86.0 Dehydration (principal); R53.1 Weakness; L89.312 Pressure ulcer of right buttock, stage 2; C79.51 Secondary malignant neoplasm of bone; Z85.3 Personal history of malignant neoplasm of breast
CPT/HCPCS: 71045; 80053 ×3; 81000; 83605; 85007; 85025 ×2; 85027; 85610; 85730; 87040; 87088; 94664; 96360; 96361; 96372; 97162; 97166; 97530 ×2; 99284; G0378; 36415